=== PATIENT | female | born 1950 | race Caucasian/White ===

== ENCOUNTER 2017-05-21 14:22 | Inpatient (IN) | payer OTHER ==
[~2017-05-21] VITALS: Ht 162.6 cm; Wt 99.8 kg
[~2017-05-21 14:22] MED LIST: ASPIR 8181 MG PO; CELEXA10 MG PO; LOVASTATIN40 MG PO; MEDROL DOSEPAK1 PAC PO; METFORMIN1000 MG PO; METOPROLOL TART25 MG PO; NORVASC10 MG PO; OMEGA 31000 MG PO; OXYCODONE5 MG PO; PERCOCET 325 MG1 TA2 PO; TOPROL XL 25MG25 MG PO; TRAMADOL50 MG PO; TYLENOL #31 TAB PO; VITAMIN D1000 IU PO
--- NOTE | 2017-05-21 14:52 | NUR ---
PT TO ED WITH C/O LEFT ABD PAIN, SLIGHT NAUSEA, NO APPETITE X 2, "I HAVE A COLOSTOMY AND THE STOMA LOOKS PURPLE WITH WHITE SPOTS". PER PT "I GET LEFT ABD CRAMPING 6/10, THEN I GET A LOT OF LOOSE DIARRHEA IN MY COLOSTOMY".
[2017-05-21] MEDS ORDERED: METFORMIN HCL1000 M1 PO (15:57)
[2017-05-21] MEDS ORDERED: LOVASTATIN40 M1 PO (15:59)
[2017-05-21] MEDS ORDERED: METOPROLOL TART25 M1 PO (15:59)
[2017-05-21] MEDS ORDERED: LISINOPRIL5 M1 PO (15:59)
[2017-05-21] MEDS ORDERED: CITALOPRAM HBR10 MG PO (15:59)
[2017-05-21] MEDS ORDERED: AMLODIPINE BESY10 M1 PO (15:59)
[2017-05-21] MEDS ORDERED: CALCIUM600 M3 PO (16:00)
[2017-05-21] MEDS ORDERED: ASPIRIN EC81 M1 PO (16:00)
[2017-05-21] MEDS ORDERED: FISH OIL 1,001000 MG PO (16:00)
[2017-05-21] MEDS ORDERED: VITAMIN D2000 UNI1 PO (16:00)
--- NOTE | 2017-05-21 16:09 | NUR ---
PT AMBULATORY TO ROOM 21, CHANGED INTO GOWN. PT ACTIVELY VOMITED X1 CLEAR FLUID IN ROOM, THEN STATING SHE FELT BETTER. AWAITING EVAL.
--- NOTE | 2017-05-21 16:10 | NUR ---
EVAL BY MEIR KUMAR
--- NOTE | 2017-05-21 16:15 | ED GI/GU/ABDOMINAL COMPLAINT ---
History of Present Illness General Chief Complaint: Abdominal Pain/Flank Pain Stated Complaint: PAIN AND REDNESS TO COLOSTOMY SITE Source: patient, family, old records Exam Limitations: no limitations Vital Signs & Intake/Output Vital Signs & Intake/Output Vital Signs Date Time Temp Pulse Resp B/P B/P Pulse O2 O2 Flow FiO2 Mean Ox Delivery Rate 05/22 0632 98.2 92 20 120/70 96 Room Air 05/21 2202 98.1 95 18 128/62 97 Room Air 05/21 2009 98.4 94 16 112/50 97 Room Air 05/21 1821 89 18 100/52 97 Room Air 05/21 1747 98 05/21 1714 98.2 82 16 92/52 98 Room Air 05/21 1455 97.7 108 20 99/62 97 Room Air Room Air ED Intake and Output 05/22 0000 05/21 1200 Intake Total 2090 Output Total 675 Balance 1415 Intake, IV 1850 Intake, Oral 240 Output, 100 Emesis Output, Stool 575 Patient 220 lb Weight Weight Reported by Patient Measurement Method Allergies Coded Allergies: NO KNOWN ALLERGIES (05/07/13) Triage Note: PT TO ED WITH C/O LEFT ABD PAIN, SLIGHT NAUSEA, NO APPETITE X 2, "I HAVE A COLOSTOMY AND THE STOMA LOOKS PURPLE WITH WHITE SPOTS". Triage Nurses Notes Reviewed? yes ? n Is pt currently ? No Onset: Abrupt Duration: day(s):, constant, continues in ED Timing: recent history Quality/Severity: moderate, sharpness, severe Location: generalized abdomen Radiation: no radiation Activities at Onset: none No Modifying Factors: none HPI: 67-year-old female comes into emergency room for further evaluation of generalized abdominal pain. Symptoms began going on for the past few days. Some associated nausea vomiting. Patient has a history of previous partial colectomy with a colostomy bag in place that has been present for about 10 years. Patient has seen Dr. Doan in the past. Denies any alcohol use. Denies any chest pain shortness of breath. Nothing seems to make the symptoms better or worse. Denies any other associated symptoms. (JOSÉ WORLEY,ABILIO) Reconcile Medications Amlodipine Besylate 10 MG TABLET 1 TAB PO DAILY HEART/BP (Reported) Aspirin (Ecotrin*) 81 MG TABLET.DR 1 TAB PO DAILY HEART/BLOOD (Reported) Calcium (Elemental-Fr Calcarb) (Calcium) 600 MG CALCIUM (1,500 MG) TABLET 1 TAB PO DAILY SUPPLEMENT (Reported) Cholecalciferol (Vitamin D3) (Vitamin D) 2,000 UNIT TABLET 1 TAB PO DAILY SUPPLEMENT (Reported) Citalopram Hydrobromide (Citalopram HBr) 10 MG TABLET 1 TAB PO DAILY MENTAL HEALTH (Reported) Lisinopril 5 MG TABLET 1 TAB PO DAILY BP (Reported) Lovastatin 40 MG TABLET 1 TAB PO DAILY CHOLESTEROL (Reported) with food Metformin HCl 1,000 MG TABLET 1 TAB PO BID DM (Reported) Metoprolol Tartrate 25 MG TABLET 1 TAB PO BID HEART/BP (Reported) [place]-3/Dha/Epa/Fish Oil (Fish Oil 1,000 MG Softgel) (Unknown Strength) CAPSULE (Unknown Dose) PO DAILY SUPPLEMENT (Reported) (DOMINIC BROOKS MD) Past History Travel History Traveled to [place] past 21 day No Medical History Any Pertinent Medical History? see below for history Neurological: NONE EENT: NONE Cardiovascular: hypertension, hyperlipidemia Respiratory: NONE Gastrointestinal: umbilical hernia Hepatic: NONE Renal: KIDNEY STONES Musculoskeletal: NONE Psychiatric: depression Endocrine: diabetes Blood Disorders: NONE Cancer(s): NONE RESEARCH AND DEVELOPMENT SPECIALIST/Reproductive: NONE History of MRSA: No History of VRE: No History of CDIFF: No Surgical History Surgical History: COLOSTOMY Psychosocial History Who do you live with Patient/Self Services at Home None What is your primary language [place] Tobacco Use: Quit >30 days ago ETOH Use: denies use Illicit Drug Use: denies illicit drug use Family History Hx Contributory? No (ABILIO JOYA) Review of Systems Review of Systems Constitutional: Reports: no symptoms. EENTM: Reports: no symptoms. Respiratory: Reports: no symptoms. Cardiovascular: Reports: no symptoms. GI: Reports: see HPI. Genitourinary: Reports: see HPI. Musculoskeletal: Reports: no symptoms. Skin: Reports: no symptoms. Neurological/Psychological: Reports: no symptoms. Hematologic/Endocrine: Reports: no symptoms. Immunologic/Allergic: Reports: no symptoms. All Other Systems: Reviewed and Negative (ABILIO JOYA) Physical Exam Physical Exam General Appearance: well developed/nourished, no apparent distress, alert, awake Head: atraumatic, normal appearance Eyes: Bilateral: normal appearance. Ears, Nose, Throat, Mouth: hearing grossly normal, moist mucous membrane Neck: normal inspection Respiratory: normal breath sounds, no respiratory distress Cardiovascular: regular rate/rhythm Gastrointestinal: soft, tenderness Back: normal inspection Extremities: normal range of motion Neurologic/Psych: awake, alert, oriented x 3 Core Measures ACS in differential dx? No Severe Sepsis Present: No Septic Shock Present: No (JOSÉ WORLEY,ABILIO) Progress Differential Diagnosis: appendicitis, bowel obstruction, cholecystitis, diverticulitis, gastritis, hepatitis, ischemic bowel, kidney stone, pancreatitis , peptic ulcer, PUD/GERD, perforated viscous, SBO, UTI/pyelo Plan of Care: Orders Procedure Date/time Status Clear Liquid Diet 05/22 B Active Change service to 05/22 0630 Active CBC WITHOUT DIFFERENTIAL 05/22 06 Active BASIC ELECTROLYTES PLUS BUN&CR 05/22 06 Active Intake & Output 05/22 UNK Complete LACTIC ACID 05/21 223 Complete HEPATIC FUNCTION PANEL 05/21 2230 Complete CBC WITHOUT DIFFERENTIAL 05/21 2230 Complete BASIC ELECTROLYTES PLUS BUN&CR 05/21 223 Complete C.DIFFICILE 05/21 2152 Active OVA AND PARASITE ANTIGENS 05/21 2129 Active Vital Signs 05/21 2056 Active Teach/Educate 05/21 2056 Active Pain Treatment and Response 05/21 2056 Active Nutritional Intake, Monitor 05/21 2056 Active Isolation 05/21 2056 Active Intake & Output 05/21 2056 Active Patient Care Conference 05/21 2056 Active Activity/Ambulation 05/21 2056 Active CULTURE,URINE 05/21 2023 Active Pathway - chart 05/21 2020 Active Pathway - chart 05/21 2011 Active LACTIC ACID 05/21 191 Complete Patient Data 05/21 1845 Active BLOOD CULTURE 05/21 1825 Active URINALYSIS 05/21 1825 Complete OXYGEN SETUP (GEN) 05/21 1758 Active Saline Lock 05/21 1758 Active Admit to inpatient 05/21 1758 Active Vital Signs 05/21 1758 Active Activity/Ambulation 05/21 1758 Active Code Status 05/21 1758 Active Add-on Test (ER Only) 05/21 1751 Active TRIGLYCERIDES 05/21 1652 Complete LDH (LACT ACID DEHYDROGENASE) 05/21 1652 Complete LIPASE 05/21 1615 Complete LACTIC ACID 05/21 1615 Complete COMPREHENSIVE METABOLIC PANEL 05/21 1615 Complete CBC WITHOUT DIFFERENTIAL 05/21 1615 Complete Intake & Output 05/21 1609 Active House Staff 05/21 UNK Active VTE Mechanical Prophylaxis 05/21 UNK Active Vital Signs 05/21 UNK Complete Hemoccult 05/21 UNK Active FingerStick- Glucose 05/21 UNK Active Current Medications Sig/Debby Start time Last Medication Dose Stop Time Status Admin Aspirin Buffered 81 MG DAILY 05/22 1000 AC (Ecotrin) Insulin Aspart 0 TIDAC 05/22 0800 AC (NovoLOG) Sodium Chloride 1,000 ML Q10H 05/21 2345 AC 05/22 (Normal Saline 0.9%) 0045 Citalopram 10 MG DAILY 05/21 223 AC 05/22 Hydrobromide 0041 (Celexa) Heparin Sodium 5,000 UNIT Q8 05/21 220 AC 05/22 (Porcine) 0551 Ondansetron HCl 4 MG Q6P PRN 05/21 2045 AC (Zofran) Acetaminophen 650 MG Q6 PRN 05/21 2030 AC 05/21 (Tylenol) 202 Morphine Sulfate 2 MG Q4P PRN 05/21 2030 AC 05/21 (Morphine) 2199 Oxycodone HCl 5 MG Q6P PRN 05/21 2030 AC (Roxicodone) Laboratory Tests 05/21/172: Anion Gap 12, Estimated GFR 32 L, BUN/Creatinine Ratio 15.0, Lactic Acid 1.1, Total Bilirubin 0.7, Direct Bilirubin 0.2, AST 24, ALT 39, Alkaline Phosphatase 58, Total Protein 6.4, Albumin 3.8, CBC w Diff NO MAN DIFF REQ, RBC 4.31, MCV 79.2 L, MCH 25.9 L, RDW 16.5 H, MPV 7.8, Gran % 71.4, Lymphocytes % 15.0 L, Monocytes % 10.4 H, Eosinophils % 2.8, Basophils % 0.4, Absolute Granulocytes 4.5, Absolute Lymphocytes 0.9 L, Absolute Monocytes 0.7 H, Absolute Eosinophils 0.2, Absolute Basophils 0, PUBS MCHC 32.7 L 05/21/17 1930: Urine Color YEL, Urine Clarity CLDY H, Urine pH 6.0, Ur Specific [place] 1.015, Urine Protein 30 H, Urine Ketones NEG, Urine Nitrite NEG, Urine Bilirubin NEG, Urine Urobilinogen 0.2, Ur Leukocyte Esterase LARGE H, Ur Microscopic SEDIMENT EXAMINED, Urine RBC 50-75 H, Urine WBC > 75 H, Ur Epithelial Cells MOD H, Urine Bacteria FEW H, Urine Hemoglobin MOD H, Urine Glucose NEG 05/21/17 1925: Lactic Acid 2.6 H 05/21/17 1652: Anion Gap 17 H, Estimated GFR 30 L, BUN/Creatinine Ratio 14.1, Glucose 139 H, Lactic Acid 3.3 H, Calcium 10.3 H, Total Bilirubin 0.7, AST 29, ALT 38, Alkaline Phosphatase 70, Lactate Dehydrogenase 378, Total Protein 7.4, Albumin 4.5, Globulin 2.9, Albumin/Globulin Ratio 1.6, Triglycerides 200 H, Lipase 752 H, CBC w Diff NO MAN DIFF REQ, RBC 4.94, MCV 79.0 L, MCH 25.9 L, RDW 16.2 H, MPV 7.8, Gran % 79.8 H, Lymphocytes % 9.3 L, Monocytes % 8.2, Eosinophils % 2.4, Basophils % 0.3, Absolute Granulocytes 6.3, Absolute Lymphocytes 0.7 L, Absolute Monocytes 0.7 H, Absolute Eosinophils 0.2, Absolute Basophils 0, PUBS MCHC 32.7 L Microbiology 05/21 2145 STOOL: Clostridium difficile Toxin A & B - RECD 05/21 2145 STOOL: Cryptosporidium Antigen - RECD 05/21 2145 STOOL: Giardia Antigen (FADIA) - RECD 05/21 2023 URINE ROUT: Urine Culture - COLB 05/21 1925 BLOOD: Blood Culture - RECD 05/21 184 BLOOD: Blood Culture - RECD Diagnostic Imaging: Viewed by Me: CT Scan. Discussed w/RAD: CT Scan. Radiology Impression: PATIENT: LETY WALL PRESENT AGE: 67 PATIENT ACCOUNT NO: [id number] : 48 LOCATION: [facility] ORDERING PHYSICIAN: ABILIO WORLEY SERVICE DATE: 05/21/17 EXAM TYPE : CAT - CT ABD & PELVIS W/O IV CONTRAS EXAMINATION: CT ABDOMEN AND PELVIS WITHOUT CONTRAST CLINICAL INFORMATION: Abdominal pain with vomiting, history of a colostomy. COMPARISON: 01/19/2016. TECHNIQUE: Multidetector volumetric imaging was performed from the superior aspect of the liver through the pubic symphysis. Sagittal and coronal reformatted images were obtained on the technologist's workstation. DLP: 1189 mGy-cm FINDINGS: LUNG BASES: 4 mm noncalcified lingular nodule image 4 series 3. This was not included on the most recent exam, however, appears stable given technical factors compared back to the 05/07/2013 CT. LIVER AND SPLEEN: Unremarkable. PANCREAS GALLBLADDER AND BILIARY TREE: Pancreas appears unremarkable. A small amount of hyperdense sludge or tiny calculi are suggested within the gallbladder dependently without evidence of acute cholecystitis on today's exam. Biliary tree is nondilated. KIDNEYS, URETERS, AND ADRENALS: There is a large staghorn calculus occupying the majority of the right renal pelvis extending into the calyces with Hounsfield unit measurements in the 4-500s suggesting a noncalcified most likely uric acid stone unless the patient is on antiretroviral therapy. This calculus measures approximately 3 cm in maximal size in the calyx largely unchanged. Other subcentimeter right renal calculi are again noted largely unchanged. Just distal to the level of the calculus is moderate soft tissue stranding somewhat masslike in appearance best seen image 51 series 2 measuring 3.4 x 2.1 cm largely unchanged indeterminate in etiology. This appears somewhat improved compared with the previous exam and appear more inflammatory the prior exam. Findings may represent chronic scarring in this region. There are no left-sided calculi, previously identified left UVJ calculus has passed. No residual hydroureteronephrosis. URINARY BLADDER: Collapsed and unremarkable. GI TRACT: Large ventral hernia containing numerous loops of large and small bowel with an associated right lower quadrant colostomy and smaller parastomal hernia without evidence of obstruction or vascular compromise. Distal colon can remain in place with fairly extensive diverticulosis and a high density mass in the rectum likely some residual contrast, I'm uncertain why there is residual contrast in this region unless the patient has a high-grade distal rectal or anal stricture or mass. Clinical correlation recommended. PERITONEAL CAVITY: There is no intraperitoneal free fluid, masses or adenopathy. RETROPERITONEUM: Moderate atherosclerotic aortic calcification without aneurysmal dilatation. PELVIC ORGANS: Uterus and adnexal regions appear unremarkable and unchanged. OSSEOUS STRUCTURES: No aggressive osseous lesions. There are degenerative changes. ANTERIOR ABDOMINAL WALL AND SOFT TISSUES: Large ventral hernia towards the right with a second area of hernia parastomal in etiology. IMPRESSION: 1. No acute process. 2. Large anterior abdominal wall hernia without evidence of an associated obstruction or vascular compromise. 3. Colonic diverticulosis without evidence of acute diverticulitis. 4. Likely residual contrast and stool in the rectum. Largely unchanged. 5. Staghorn calculus right kidney without hydronephrosis. Questionable inflammatory versus neoplastic thickening just distal to the calculus at the ureteropelvic junction/proximal ureter on the right somewhat less prominent on today's exam. Urologic consultation recommended. DICTATED BY: ISSA PRECIADO MD DATE/TIME DICTATED:05/21/171638 PRODUCT TEST ENGINEER:[place] DATE/TIME TRANSCRIBED:05/21/171638 CONFIDENTIAL, DO NOT COPY WITHOUT APPROPRIATE AUTHORIZATION. <Electronically signed in Other Vendor System> SIGNED BY: ISSA PRECIADO MD 05/21/17 1492 Initial ED EKG: none (ABILIO JOYA) Departure Departure Disposition: STILL A PATIENT Condition: Stable Clinical Impression Primary Impression: Acute pancreatitis Secondary Impressions: Acute kidney injury, Lactic acidosis Referrals: SHAY HAMPTON MD (PCP/Family) Departure Forms: Customer Survey General Discharge Information Admission Note Spoke With: ELIAS GARCIA MD Documentation of Exam: Documentation of any treatments & extenuating circumstances including Concerns Regarding Discharge (functional status, medication knowledge or non-compliance, living conditions, etc.) that warrant an admission rather than observation: Patient will require IV fluids. IV pain control. Repeat labs. Patient is exhibiting signs of dehydration as well as pancreatitis. GI consultation. (ABILIO JOYA) PA/MOLD SETTER Co-Sign Statement Statement: ED Attending supervision documentation- x I saw and evaluated the patient. I have also reviewed all the pertinent lab results and diagnostic results. I agree with the findings and the plan of care as documented in the PA's/MOLD SETTER's documentation. [] I have reviewed the ED Record and agree with the PA's/MOLD SETTER's documentation. [] Additions or exceptions (if any) to the PAs/MOLD SETTER's note and plan are summarized below: [] (TODD NAJREA,DOMINIC)
[2017-05-21 17:07] LABS: ABSOLUTE BASOPHIL COUNT 0 /CUMM (0.0-0.2); ABSOLUTE EOSINOPHIL COUNT 0.2 /CUMM (0.0-0.7); ABSOLUTE GRANULOCYTE CT 6.3 /CUMM (1.4-6.5); ABSOLUTE LYMPH COUNT 0.7 /CUMM (1.2-3.4); ABSOLUTE MONOCYTE COUNT 0.7 /CUMM (0.10-0.60); BASOPHIL % 0.3 % (0.0-2.0); EOSINOPHIL % 2.4 % (0-5); GRANULOCYTE % 79.8 % (42.2-75.2); MEAN CORPUSCULAR HGB 25.9 PG (27.0-31.0); MEAN CORPUSCULAR HGB CONC 32.7 G/DL (33.0-37.0); MEAN PLATELET VOLUME 7.8 FL (7.4-10.4); PLATELET COUNT 295 /CUMM (130-400); RBC DISTRIBUTION WIDTH 16.2 % (11.5-14.5); RED BLOOD CELL CT 4.94 /CUMM (4.20-5.40); WHITE BLOOD CELL COUNT 7.9 /CUMM (4.8-10.8)
--- NOTE | 2017-05-21 17:43 | CT SCAN REPORT ---
EXAMINATION: CT ABDOMEN AND PELVIS WITHOUT CONTRAST CLINICAL INFORMATION: Abdominal pain with vomiting, history of a colostomy. COMPARISON: 01/19/2016. TECHNIQUE: Multidetector volumetric imaging was performed from the superior aspect of the liver through the pubic symphysis. Sagittal and coronal reformatted images were obtained on the technologist's workstation. DLP: 1189 mGy-cm FINDINGS: LUNG BASES: 4 mm noncalcified lingular nodule image 4 series 3. This was not included on the most recent exam, however, appears stable given technical factors compared back to the 05/07/2013 CT. LIVER AND SPLEEN: Unremarkable. PANCREAS GALLBLADDER AND BILIARY TREE: Pancreas appears unremarkable. A small amount of hyperdense sludge or tiny calculi are suggested within the gallbladder dependently without evidence of acute cholecystitis on today's exam. Biliary tree is nondilated. KIDNEYS, URETERS, AND ADRENALS: There is a large staghorn calculus occupying the majority of the right renal pelvis extending into the calyces with Hounsfield unit measurements in the 4-500s suggesting a noncalcified most likely uric acid stone unless the patient is on antiretroviral therapy. This calculus measures approximately 3 cm in maximal size in the calyx largely unchanged. Other subcentimeter right renal calculi are again noted largely unchanged. Just distal to the level of the calculus is moderate soft tissue stranding somewhat masslike in appearance best seen image 51 series 2 measuring 3.4 x 2.1 cm largely unchanged indeterminate in etiology. This appears somewhat improved compared with the previous exam and appear more inflammatory the prior exam. Findings may represent chronic scarring in this region. There are no left-sided calculi, previously identified left UVJ calculus has passed. No residual hydroureteronephrosis. URINARY BLADDER: Collapsed and unremarkable. GI TRACT: Large ventral hernia containing numerous loops of large and small bowel with an associated right lower quadrant colostomy and smaller parastomal hernia without evidence of obstruction or vascular compromise. Distal colon can remain in place with fairly extensive diverticulosis and a high density mass in the rectum likely some residual contrast, I'm uncertain why there is residual contrast in this region unless the patient has a high-grade distal rectal or anal stricture or mass. Clinical correlation recommended. PERITONEAL CAVITY: There is no intraperitoneal free fluid, masses or adenopathy. RETROPERITONEUM: Moderate atherosclerotic aortic calcification without aneurysmal dilatation. PELVIC ORGANS: Uterus and adnexal regions appear unremarkable and unchanged. OSSEOUS STRUCTURES: No aggressive osseous lesions. There are degenerative changes. ANTERIOR ABDOMINAL WALL AND SOFT TISSUES: Large ventral hernia towards the right with a second area of hernia parastomal in etiology. IMPRESSION: 1. No acute process. 2. Large anterior abdominal wall hernia without evidence of an associated obstruction or vascular compromise. 3. Colonic diverticulosis without evidence of acute diverticulitis. 4. Likely residual contrast and stool in the rectum. Largely unchanged. 5. Staghorn calculus right kidney without hydronephrosis. Questionable inflammatory versus neoplastic thickening just distal to the calculus at the ureteropelvic junction/proximal ureter on the right somewhat less prominent on today's exam. Urologic consultation recommended.
--- NOTE | 2017-05-21 17:48 | NUR ---
PT AMBULATORY TO AND FROM BATHROOM WITH STEADY GAIT, NO DIZZINESS.
--- NOTE | 2017-05-21 17:48 | NUR ---
CRITICAL TEST RESULTS [id number] LETY WALL 67 F TESTS AND RESULTS: LACTIC 3.3 Results received and read back by: CAM PUTNAM Results received date and time: 05/21/17 1749 The following provider was notified of the results, and read the results back: MEIR KUMAR Notified date and time: 05/21/17 at 1744
--- NOTE | 2017-05-21 17:57 | NUR ---
MEIR KUMAR AT BEDSIDE TO DISCUSS TEST RESULTS AND PLAN
--- NOTE | 2017-05-21 19:53 | NUR ---
PT ASSIGNED TO ROOM 210 BED 2
--- NOTE | 2017-05-21 20:09 | History & Physical ---
SHEYLA NAJERA,[facility] 05/21/172007: General Information and HPI MD Statement: I have seen and personally examined LETY WALL and documented this H&P. The patient is a 67 year old F who presented with a patient stated chief complaint of [abdominal pain]. Source of Information: patient, family Exam Limitations: no limitations History of Present Illness: The patient is 67 yo F with a pmx of hypertension, hyperlipidemia, incarcerated umbilical hernia and colostomy, kidney stones, depression, and diabetes presenting with 3-4 days of L abd pain. She states the pain started suddenly. She described it as a shooting pain that comes and goes. The pain is non radiating. She states the pain improved with ibuprofen 250 but would reoccur. She states she has taken 4 ibuprofen for the past 4 days(16 total). She has been drinking alot of water. She also complains of bloating. She states she has had 3 episodes of vomiting. This morning she tried eating an egg but was unable to tolerate it and vomited. She has also noticed diarreah which started in the same time period. She states her diarreah is all liquid and denies any blood. She has a bowel movement every couple hours, about 5 times/day. She has a coloestomy for her hernia back in 2006. She denies eating out recently, diet changes, antibiotics, or sick contacts. She has noticed chills, sweats but no fevers. She denies chest pain, SOB, palpitations. She denies any burning with urination recently. She reports increasae urinary frequency. For the past few days she has felt very anxious and has had reduced appetite. She has a history of anxiety. She has noticed a regular heart beat during these anxiety periods. She states Dr. Jeter is the attending taking care of her b/l renal stents. 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 The patient has a history of aortic stenosis diagnosed in [address] Baugh but did not follow up. She also states Dr. Doan plans on reversing the colostomy. Allergies/Medications Allergies: Coded Allergies: NO KNOWN ALLERGIES (05/07/13) Home Med list Amlodipine Besylate 10 MG TABLET 1 TAB PO DAILY HEART/BP (Reported) Aspirin (Ecotrin*) 81 MG TABLET. 1 TAB PO DAILY HEART/BLOOD (Reported) Calcium (Elemental-Fr Calcarb) (Calcium) 600 MG CALCIUM (1,500 MG) TABLET 1 TAB PO DAILY SUPPLEMENT (Reported) Cholecalciferol (Vitamin D3) (Vitamin D) 2,000 UNIT TABLET 1 TAB PO DAILY SUPPLEMENT (Reported) Citalopram Hydrobromide (Citalopram HBr) 10 MG TABLET 1 TAB PO DAILY MENTAL HEALTH (Reported) Lisinopril 5 MG TABLET 1 TAB PO DAILY BP (Reported) Lovastatin 40 MG TABLET 1 TAB PO DAILY CHOLESTEROL (Reported) with food Metformin HCl 1,000 MG TABLET 1 TAB PO BID DM (Reported) Metoprolol Tartrate 25 MG TABLET 1 TAB PO BID HEART/BP (Reported) Henderson-3/Dha/Epa/Fish Oil (Fish Oil 1,000 MG Softgel) (Unknown Strength) CAPSULE (Unknown Dose) PO DAILY SUPPLEMENT (Reported) Past History Travel History Traveled to [place] past 21 day No Medical History Neurological: NONE EENT: NONE Cardiovascular: hypertension, hyperlipidemia, aortic stenosis Respiratory: NONE Gastrointestinal: umbilical hernia Hepatic: NONE Renal: KIDNEY STONES Musculoskeletal: NONE Psychiatric: depression Endocrine: diabetes Blood Disorders: NONE Cancer(s): NONE HOSPICE FELLOW/Reproductive: NONE History of MRSA: No History of VRE: No History of CDIFF: No Surgical History Surgical History: COLOSTOMY Past Family/Social History Psychosocial History Services at Home: None Smoking Status: Former Smoker (quit 20 years ago) ETOH Use: denies use Illicit Drug Use: denies illicit drug use Review of Systems Review of Systems Constitutional: Reports: chills, diaphoresis. Denies: fever. Cardiovascular: Denies: chest pain, palpitations. Respiratory: Denies: short of breath. GI: Reports: abdominal pain. Genitourinary: Reports: frequency. Denies: dysuria. Neurological/Psychological: Reports: anxiety. Exam & Diagnostic Data Last 24 Hrs of Vital Signs/I&O Vital Signs Date Time Temp Pulse Resp B/P B/P Pulse O2 O2 Flow FiO2 Mean Ox Delivery Rate 05/212 98.1 95 18 128/62 97 Room Air 05/21 2009 98.4 94 16 112/50 97 Room Air 05/21 1821 89 18 100/52 97 Room Air 05/21 1747 98 05/21 1714 98.2 82 16 92/52 98 Room Air 05/21 1455 97.7 108 20 99/62 97 Room Air Room Air Intake & Output 05/22 0800 05/22 0000 05/21 1600 Intake Total 2090 Output Total 675 Balance 1415 Intake, IV 1850 Intake, Oral 240 Output, 100 Emesis Output, Stool 575 Patient 220 lb 200 lb Weight Weight Reported by Patient Reported by Patient Measurement Method Physical Exam General Appearance Alert, Oriented X3, Cooperative, No Acute Distress HEENT PERRLA, EOMI, dry mucous membranes and tongue, CN 2-12 intact Cardiovascular Normal S1, Normal S2, holosystolic ejection murmur Lungs Clear to Auscultation, Normal Air Movement Abdomen Soft, No Tenderness, right colostomy noted. Dark green diarrhea noted in colostomy bag. Patient states this is the first time she has had green diarrhea. Extremities No Edema, Normal Pulses Diagnostic Data CXR Results CT ABD PELVIS IMPRESSION: 1. No acute process. 2. Large anterior abdominal wall hernia without evidence of an associated obstruction or vascular compromise. 3. Colonic diverticulosis without evidence of acute diverticulitis. 4. Likely residual contrast and stool in the rectum. Largely unchanged. 5. Staghorn calculus right kidney without hydronephrosis. Questionable inflammatory versus neoplastic thickening just distal to the calculus at the ureteropelvic junction/proximal ureter on the right somewhat less prominent on today's exam. Urologic consultation recommended. Assessment/Plan Assessment: The patient is 67 yo F with a pmx of hypertension, hyperlipidemia, incarcerated umbilical hernia and colostomy, kidney stones, depression, and diabetes presenting with 3-4 days of L abd pain found to be afebrile, questionable inflammatory versus neoplastic thickening distal to the staghorn calculi of the right kidney, multiple metabolic abnormalities, and a urinalysis consisting of positive leukocyte esterase and negative nitrites which are consistent with her old urinalyses. The patient will be admitted to the general medicine service to treat her gastroenteritis/abdominal pain, sepsis secondary to possible UTI, GHAZAL, and metabolic derangements. As Ranked By This Provider Problem List: 1. Abdominal pain Assessment/Plan The patient is 67 yo F with a pmx of hypertension, hyperlipidemia, incarcerated umbilical hernia and colostomy, kidney stones, depression, and diabetes presenting with 3-4 days of acute onset, sharp, intermittent and remaining abd pain. The patient has been taking 4 ibuprofens each day at 250 each. She also complains of bloating and episodes of vomiting. She is afebrile her temperature was 98.2. She states that the green diarrhea in her colostomy bag was the first time she has noticed it. We will treat her for presumed gastroenteritis. We will also get stool studies including Hemoccult, stool cultures, ova and parasite, and C. difficile. We will give her Zofran when necessary for nausea. We will begin her on a pain scale for pain. We will also obtain blood cultures to rule out any other source of infection. The patient had an original lactic acid of 3.3 which is down trended to 2.6. We will continue to trend lactic acid. The patient was found to also have a systolic blood pressure between 90- 100. We will hold her home medications for her blood pressure. Please repeat an abdominal exam in the morning and consider an ultrasound. Her AST and ALTs were 24 and 30 respectively. Her alkaline phosphatase was 70. Of note her triglycerides were 200 and lipase was 752. We will begin her on a clear liquid diet. -f/u cbc, bmp -f/u stool studies: hemoccult, stool cultures, ova and parasite, and C. difficile. -Zofran 4 mg IV every 6 hours when necessary nausea and vomiting -Pain scale: Acetaminophen 650 mg by mouth every 6 hours for pain scale 1-3, oxycodone 5 mg by mouth every 6 hours for pain scale 4-6,morphine 2mg iv mg by mouth every 6 hours for pain scale 7-10 -Follow blood cultures -Continue trending lactic -Repeat abdominal exam in the morning. Consider ultrasound 2. UTI (urinary tract infection) Assessment/Plan The patient's urinalysis was positive for leukoesterase, white blood cells 50-75 , white blood cell screen 75, and negative for nitrates. The patient's current urinalysis is very similar to her past urinalysis. She denies any dysuria but reports increased frequency. A UTI may be of cause of her sepsis. We will continue to trend her lactic acid as stated above and will follow up on the urine culture. -Follow-up urine culture 3. GHAZAL (acute kidney injury) Assessment/Plan The patient was found to have a anion gap metabolic acidosis in addition to a BUN -24 and creatinine 1.7. This creatinine is above her baseline. Given her poor PO intake and diarrhea, these are most likely the cause of her GHAZAL. We will continue her fluids and monitor her basic metabolic panel. We are trending lactic acid levels as stated above. -Continue fluids -Monitor BMP -Trend lactic acid 4. Electrolyte abnormality Assessment/Plan The patient was found to have a sodium of 133, potassium 5.3, chloride 94, CO2 of 21. Given the patient's history of pain and vomiting, the lack of PO nutrition and diarrhea, these three factors are probably the cause of these metabolic derangements. We will continually follow her BMP and repeat electrolytes as needed. She is currently NPO and begin her on fluids. -Follow-up BMP, replete lytes as needed -Continue NS @ 100ml/hr 5. Depression Assessment/Plan The patient reports a history of depression. We will continue her on her current dose of citalopram. -Continue citalopram 10 mg by mouth daily 6. DVT prophylaxis Assessment/Plan Heparin 7. Full code status Assessment/Plan Full code Core Measures/Miscellaneous Acute Coronary Syndrome ACS Diagnosis: No Cerebrovascular Accident CVA/TIA Diagnosis: No Congestive Heart Failure CHF Diagnosis: No VTE (View Protocol) VTE Risk Factors: Acute medical illness, Age > 40 No [facility] VTE prophylaxis d/t: No contraindications No VTE Pharm Prophylaxis d/t: No contraindications VTE Diagnosis: No VTE Type: NONE VTE Confirmed by (Test): NONE Sepsis (View Protocol) Severe Sepsis Present: No Septic Shock Septic Shock Present: No Miscellaneous Documentation Attending Case Discussed With: SUSY MORATAYA MD Primary Care Physician: SHAY HAMPTON MD Patient sees these Specialists GI, cards, nephrology but does not follow up Level of Patient Care: General Medicine RENETTA GOYAL MD,RADHA 05/21/172027: Resident Review Statement Resident Statement: examined this patient, discussed with internal controls manager, discussed with family, reviewed EMR data (avail) Other Findings: 67-year-old woman with past medical history significant for hypertension, hyperlipidemia, type 2 diabetes on metformin, history of nephrolithiasis status post bilateral ureteral stents, history of cholelithiasis, history of colostomy for an incarcerated hernia, past admission in [facility] in 2012 for bilateral obstructing calculi with bilateral hydronephrosis, metabolic acidosis, and hyponatremia came to emergency department for generalized abdominal pain. Vitals in emergency department, patient afebrile, no tachypnea, tachycardia heart rate ranging from 108-82, blood pressure ranging from 92/52-112/50, oxygen saturation of 97-98% on room air. On examination, patient was alert and oriented comfortably lying in the bed not in any acute distress. Pertinent examination of abdomen included right-sided colostomy bag with greenish fluid watering consistency, mild tenderness on deep palpation of lower abdomen, dry mucous membranes, holosystolic murmur, benign lung and neurological examination Significant labs in emergency department, no leukocytosis white count of 7.9, granulocytes 79.8, platelet count 95, hemoglobin of 12.8 and hematocrit of 39, significant electrolyte abnormalities including hyponatremia sodium 133, hyperkalemia, potassium 5.3, chloride 94, carbon dioxide 21, BUN 24 and creatinine 1.7 (baseline creatinine of 0.9-1), significant lactic acidosis, lactic acid on admission 3.3, triglycerides of 200 and lipase of 752, dirty urine with greater than 75 WBCs, epithelial cells, positive leukocyte esterase. Imaging in emergency , CAT scan of abdomen and pelvis without IV contrast, No acute process, Large anterior abdominal wall hernia without evidence of an associated obstruction or vascular compromise. Colonic diverticulosis without evidence of acute diverticulitis. Likely residual contrast and stool in the rectum. Largely unchanged. Staghorn calculus right kidney without hydronephrosis. Questionable inflammatory versus neoplastic thickening just distal to the calculus at the ureteropelvic junction/proximal ureter on the right somewhat less prominent on today's exam. Patient was admitted on general medicine floor for the management of following problems #1 Acute Dirrhea #2 acute kidney injury/? UTI #3 acute abdominal pain #4 significant electrolyte abnormalities #5 lactic acidosis Acute diarrhea/abdominal pain/electrolyte abnormalities According to the patient she has been having 10-12 bowel movements which are liquid in consistency for the last 3-4 days along with generalized lower abdominal pain. Patient denied eating out, ordering food or any sick contacts along with any recent antibiotic use. She has not been admitted recently in any health care facility. Patient also noticed some dark liquidy stools yesterday but denies seeing any fresh red blood in the colostomy bag. We'll send the stool studies ON parasites along with C. difficile. We will hold off any antibiotics for now. Supportive care with IV fluids and Zofran for nausea. We will also replete electrolytes as necessary. Patient will be on clear liquid diet and will adjust the diet as tolerated. Monitor input and output. Restart blood pressure medications as blood pressure is improved. Lactic acidosis Lactic acidosis type A likely secondary to poor tissue perfusion in the setting of recent diarrhea. We will Rehydrate the patient and follow-up lactic acid. Acute kidney injury Likely secondary to mixed picture of using and this aids in the setting of hypovolemia leading to prerenal and intrinsic type of kidney injury. Patient has already received IV fluids will follow-up with a renal function. Avoid NSAIDS and nephrotoxic medications. History of UTI/bilateral ureteral stents Patient does have past medical history significant for urinary tract infections in the past. We will hold off on any antibiotics for now as she does not have any symptoms of dysuria or burning with passing urine. With obtain the urine culture/blood culture and follow-up Patient is full code Patient is on heparin for DVT prophylaxis Patient is on pain management Patient is clear liquid diet ELIAS GARCIA 05/22/17 0331: Attending MD Review Statement Attending Statement Attending MD Statement: examined this patient, discuss w/resident/PA/CLINIC SCHEDULER, agreed w/resident/PA/CLINIC SCHEDULER, reviewed EMR data (avail), reviewed images, amended to note Attending Assessment/Plan: CC: Left flank pain PMH: HTN, HLD, DM, nephrolithiasis with history of bilateral obstructing ureteral calculus S/P stent, obesity, moderate to severe areas, pulmonary hypertension, 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 Upon further questioning patient endorses increased output through ileostomy tube, green colored output needing frequent changes, no evidence of blood or black colored stool. Patient has been taking NSAIDs for the pain without much relief. No changes in food or any recent use of antibiotics. Denies any fever or chills at home. She denies any urinary symptoms including frequency, burning or pain, denies any suprapubic pain. Vitals: Afebrile, pulse in 80s, RR 16, blood pressure at arrival 99/62 improved with IV hydration, saturating well on room air. On exam: A O 3, cooperative, no acute distress, neck supple, JVD normal, no lymphadenopathy, mucosa dry, no focal neurological deficit, no dependent edema, no obvious skin rashes or inflammation CVS: S1-S2, RRR, systolic murmur in aortic area. RS: Clear to auscultate bilaterally. Abdomen: Soft, tender left lower quadrant, increased watery green eye ileostomy output, eye ileostomy site grossly does not show any inflammation around but patient had tape glued around the colostomy site thus difficult to examine, obese,, bowel sounds present. Peripheral pulses perfusion normal Labs: CBC unremarkable, sodium 133, potassium 4.3, chloride 94, bicarbonate 21, BUN 24, creatinine 1.7, glucose 139, calcium 10.3, anion gap 17, lactate 3.3, LFT unremarkable, lipase 752 UA positive for proteins, large leukocyte esterase, WBC more than 75, moderate epithelial cells, few bacteria CT abdomen pelvis without IV contrast: 1. No acute process. 2. Large anterior abdominal wall hernia without evidence of an associated obstruction or vascular compromise. 3. Colonic diverticulosis without evidence of acute diverticulitis. 4. Likely residual contrast and stool in the rectum. Largely unchanged. 5. Staghorn calculus right kidney without hydronephrosis. Questionable inflammatory versus neoplastic thickening just distal to the calculus at the ureteropelvic junction/proximal ureter on the right somewhat less prominent on today's exam. Urologic consultation recommended. A and P 67 year old female with extensive past medical history presented in ER with left flank pain, increased ileostomy output, nausea and vomiting. She has mild tenderness in left lower quadrant, bowel sounds present, no guarding or rigidity. No CVA tenderness. His initial lab shows anion gap metabolic acidosis with elevated creatinine and lactic acid. Lipase was 752 which is unlikely diagnostic of pancreatitis. Patient appears to have volume contraction secondary to diarrhea, possible gastroenteritis and rule out other infections. Patient does have some gallbladder sludge on CT scan but does not have any Tomas's sign positive on examination. There is evidence of extensive diverticulosis and remaining part of the colon but no evidence of diverticulitis. Patient does have the right-sided staghorn calculus and UA positive for leukocyte esterase but patient does not have any symptoms of UTI including dysuria, frequency, burning, CVA tenderness. She is supposed to follow-up urology outpatient which she has stopped. There is residual contrast in the rectum, unclear etiology and significance. It should be noted that patient had tape glued around the colostomy, it may cause some local skin irritation, I was unable to peel off the tape and patient was reluctant. + Gastroenteritis + Acute kidney injury + Anion gap metabolic acidosis - Admit to general medicine floor - Continue gentle hydration - Trend lactate - Urine culture - Stool for C. difficile and guaiac - Adequate pain control - I's and O's monitoring - Hold her home medications for blood pressure, oral hypoglycemic - Continue sliding scale insulin - DVT prophylaxis with heparin
--- NOTE | 2017-05-21 20:28 | NUR ---
CRITICAL TEST RESULTS [id number] LETY WALL 67 F TESTS AND RESULTS: LACTIC 2.6 Results received and read back by: CAM PUTNAM Results received date and time: 05/21/172028 The following provider was notified of the results, and read the results back: TEXT PAGE TO MOD Notified date and time: 05/21/17 at 1830
--- NOTE | 2017-05-21 20:28 | NUR ---
TYLENOL GIVEN FOR H/A, REPORT CALLED TO [facility] ON 2NB, TRANSPORT BOOKED. PT AWARE OF PENDING TRANSPORT.
[2017-05-21 22:02] VITALS: BP 128/62
--- NOTE | 2017-05-21 22:31 | NUR ---
PATIENT ARRIVED TO FLOOR AT 2047 FROM ER, DX PANCREATITIS VS 98.1 95 18 128/62 97% ROOM AIR; A&OX3; INDEPENDENT; SKIN INTACT; COLOSTOMY TO R ABD, GREEN LIQUID OUTPUT, GUAIC -, SAMPLES SENT PER ORDERS; C/O SOME PAIN TO LOWER ABD; NPO; #20 IV TO RAC WITH LR @ 250 ML/HR. ORIENTED TO CALL [facility] AND ROOM, SAFETY MAINTAINED, NEEDS WITHIN REACH.
[2017-05-21 23:09] LABS: ABSOLUTE BASOPHIL COUNT 0 /CUMM (0.0-0.2); ABSOLUTE EOSINOPHIL COUNT 0.2 /CUMM (0.0-0.7); ABSOLUTE GRANULOCYTE CT 4.5 /CUMM (1.4-6.5); ABSOLUTE LYMPH COUNT 0.9 /CUMM (1.2-3.4); ABSOLUTE MONOCYTE COUNT 0.7 /CUMM (0.10-0.60); BASOPHIL % 0.4 % (0.0-2.0); EOSINOPHIL % 2.8 % (0-5); GRANULOCYTE % 71.4 % (42.2-75.2); HEMATOCRIT 34.2 % (37-47); MEAN CORPUSCULAR HGB 25.9 PG (27.0-31.0); MEAN CORPUSCULAR HGB CONC 32.7 G/DL (33.0-37.0); MEAN CORPUSCULAR VOLUME 79.2 FL (81.0-99.0); MEAN PLATELET VOLUME 7.8 FL (7.4-10.4); PLATELET COUNT 262 /CUMM (130-400); RBC DISTRIBUTION WIDTH 16.5 % (11.5-14.5); RED BLOOD CELL CT 4.31 /CUMM (4.20-5.40); WHITE BLOOD CELL COUNT 6.3 /CUMM (4.8-10.8)
--- NOTE | 2017-05-21 23:28 | NUR ---
PATIENT IS NPO, CURRENT IVF FINISHED (LR ORDERED X 1 BAG), PT IS DIABETIC, FINGERSTICKS S/B Q6 WELL SLIDING SCALE INSULIN COVERAGE DR CARRION INFORMED OF ABOVE, AWAITING NEW ORDERS INFO GIVEN TO ONCOMING NURSE, SHELLI VALDEZ
--- NOTE | 2017-05-22 03:33 | Admission Certification ---
Admission Certification Certification Statement - As attending physician, I certify that at the time of - admission, based on clinical presentation, severity of - symptoms, need for further diagnostic testing and - therapeutic interventions, and risk of adverse outcomes - without in-hospital treatment, in my clinical assessment, - this patient requires an acute hospital stay for a minimum - of two nights or longer. I have also considered psychsocial - factors such as support system, advanced age, financial - issues, cognitive issues, and failed out-patient treatments, - past re-admission history, safety of patient, and lack of - compliance as applicable. Specific rationale supporting this admission is: Dehydration, acute kidney injury, gastroenteritis
[2017-05-22 06:32] VITALS: BP 120/70
--- NOTE | 2017-05-22 07:51 | PN- Housestaff ---
See Addendum Subjective Follow-up For: Gastroenteritis, GHAZAL Subjective: She presented last night. She did not sleep well. She is having pain 5/10 in the LUQ of abdomen. Otherwise, she says she is hungry and is looking forward to eating. She did vomit multiple times yesterday. She is also complaining of a headache. No dysuria, chest pain, shortness of breath. Review of Systems Constitutional: Reports: see HPI. EENTM: Reports: no symptoms. Cardiovascular: Reports: no symptoms. Respiratory: Reports: no symptoms. Gastrointestinal: Reports: see HPI. Genitourinary: Reports: no symptoms. Musculoskeletal: Reports: no symptoms. Skin: Reports: no symptoms. Neurological/Psychological: Reports: no symptoms. Hematologic/Endocrine: Reports: no symptoms. Immunologic/Allergic: Reports: no symptoms. Objective Last 24 Hrs of Vital Signs/I&O Vital Signs Date Time Temp Pulse Resp B/P B/P Pulse O2 O2 Flow FiO2 Mean Ox Delivery Rate 05/22 0632 98.2 92 20 120/70 96 Room Air 05/21 2202 98.1 95 18 128/62 97 Room Air 05/21 2009 98.4 94 16 112/50 97 Room Air 05/21 1821 89 18 100/52 97 Room Air 05/21 1747 98 05/21 1714 98.2 82 16 92/52 98 Room Air 05/21 1455 97.7 108 20 99/62 97 Room Air Room Air Intake & Output 05/22 0800 05/22 0000 05/21 1600 Intake Total 2090 Output Total 300 675 Balance -300 1415 Intake, IV 1850 Intake, Oral 240 Output, 100 Emesis Output, Stool 575 Output, Urine 300 Patient 220 lb 200 lb Weight Weight Reported by Patient Reported by Patient Measurement Method Physical Exam General Appearance: Alert, Oriented X3, Cooperative, No Acute Distress HEENT: Atraumatic Cardiovascular: Regular Rate, Normal S1, Normal S2 Lungs: Clear to Auscultation Abdomen: ostomy bag with light green fluid. No erythema surrounding the back. She has pain in the left upper quadrant abdomen, however it is not exacerbated on palpation. Neurological: Normal Speech Current Medications: Current Medications Sig/Debby Start time Last Medication Dose Route Stop Time Status Admin Acetaminophen 0 .STK-MED ONE 05/21 2031 DC PO Acetaminophen 650 MG Q6 PRN 05/21 2030 AC 05/21 PO 2026 Acetaminophen 0 .STK-MED ONE 05/21 2030 DC PO Aspirin Buffered 81 MG DAILY 05/22 1000 AC PO Citalopram 10 MG DAILY 05/21 2230 AC 05/22 Hydrobromide PO 004 Heparin Sodium 5,000 UNIT Q8 05/21 2200 AC 05/22 (Porcine) SC 0551 Insulin Aspart 0 TIDAC 05/22 0800 AC SC Lactated Ringer's 1,000 ML ONCE ONE 05/21 1800 DC 05/21 IV 05/21 2159 1821 Morphine Sulfate 2 MG Q4P PRN 05/21 2030 AC 05/21 IV 2200 Ondansetron HCl 4 MG Q6P PRN 05/21 2045 AC IV Ondansetron HCl 0 .STK-MED ONE 05/21 1623 DC .ROUTE Ondansetron HCl 4 MG ONCE ONE 05/21 1615 DC 05/21 IV 05/21 1616 1645 Oxycodone HCl 5 MG Q6P PRN 05/21 2030 AC PO Sodium Chloride 1,000 ML Q10H 05/21 2345 AC 05/22 IV 0045 Sodium Chloride 1,000 ML BOLUS ONE 05/21 1615 DC 05/21 IV 05/21 1714 1645 Last 24 Hrs of Lab/Kartik Results Last 24 Hrs of Labs/Mics: Laboratory Tests 05/22/17 0647: Sodium Pending, Potassium Pending, Chloride Pending, Carbon Dioxide Pending, Anion Gap Pending, BUN Pending, Creatinine Pending, BUN/Creatinine Ratio Pending , CBC w Diff Pending, WBC Pending, RBC Pending, Hgb Pending, Hct Pending, MCV Pending, MCH Pending, RDW Pending, Plt Count Pending, MPV Pending, PUBS MCHC Pending 05/21/17 2252: Anion Gap 12, Estimated GFR 32 L, BUN/Creatinine Ratio 15.0, Lactic Acid 1.1, Total Bilirubin 0.7, Direct Bilirubin 0.2, AST 24, ALT 39, Alkaline Phosphatase 58, Total Protein 6.4, Albumin 3.8, CBC w Diff NO MAN DIFF REQ, RBC 4.31, MCV 79.2 L, MCH 25.9 L, RDW 16.5 H, MPV 7.8, Gran % 71.4, Lymphocytes % 15.0 L, Monocytes % 10.4 H, Eosinophils % 2.8, Basophils % 0.4, Absolute Granulocytes 4.5, Absolute Lymphocytes 0.9 L, Absolute Monocytes 0.7 H, Absolute Eosinophils 0.2, Absolute Basophils 0, PUBS MCHC 32.7 L 05/21/170: Urine Color YEL, Urine Clarity CLDY H, Urine pH 6.0, Ur Specific [place] 1.015, Urine Protein 30 H, Urine Ketones NEG, Urine Nitrite NEG, Urine Bilirubin NEG, Urine Urobilinogen 0.2, Ur Leukocyte Esterase LARGE H, Ur Microscopic SEDIMENT EXAMINED, Urine RBC 50-75 H, Urine WBC > 75 H, Ur Epithelial Cells MOD H, Urine Bacteria FEW H, Urine Hemoglobin MOD H, Urine Glucose NEG 05/21/171924: Lactic Acid 2.6 H 05/21/171651: Anion Gap 17 H, Estimated GFR 30 L, BUN/Creatinine Ratio 14.1, Glucose 139 H, Lactic Acid 3.3 H, Calcium 10.3 H, Total Bilirubin 0.7, AST 29, ALT 38, Alkaline Phosphatase 70, Lactate Dehydrogenase 378, Total Protein 7.4, Albumin 4.5, Globulin 2.9, Albumin/Globulin Ratio 1.6, Triglycerides 200 H, Lipase 752 H, CBC w Diff NO MAN DIFF REQ, RBC 4.94, MCV 79.0 L, MCH 25.9 L, RDW 16.2 H, MPV 7.8, Gran % 79.8 H, Lymphocytes % 9.3 L, Monocytes % 8.2, Eosinophils % 2.4, Basophils % 0.3, Absolute Granulocytes 6.3, Absolute Lymphocytes 0.7 L, Absolute Monocytes 0.7 H, Absolute Eosinophils 0.2, Absolute Basophils 0, PUBS MCHC 32.7 L Microbiology 05/21 2145 STOOL: Clostridium difficile Toxin A & B - RECD 05/21 2145 STOOL: Cryptosporidium Antigen - RECD 05/21 2145 STOOL: Giardia Antigen (KARTIK) - RECD 05/21 2023 URINE ROUT: Urine Culture - COLB 05/21 1925 BLOOD: Blood Culture - RECD 05/21 1845 BLOOD: Blood Culture - RECD Assessment/Plan Assessment: The patient is 67 yo F with a pmx of hypertension, hyperlipidemia, incarcerated umbilical hernia and colostomy, kidney stones, depression, and diabetes presenting with 3-4 days of acute onset, sharp, intermittent and remaining abd pain. 05/21 CT abdomen: Large anterior abdominal wall hernia without obstruction or vascular compromise, diverticulosis, residual contrast and stool in rectum, staghorn calculus right kidney without hydronephrosis, questionable inflammatory versus neoplastic thickening just distal calculus at the ureteropelvic junction/ proximal ureter #Abdominal pain and vomiting: Differential includes gastroenteritis, Clostridium difficile infection, pancreatitis, UTI, pyelonephritis. We will follow blood cultures. She is afebrile with a white count of 6.8. Lipase 752, triglycerides 200. Urinalysis showed greater than 75 WBCs and large leukocyte esterase. She has no dysuria, but does have increased frequency. She also has the staghorn calculus in the right kidney on CT, inflammatory versus neoplastic thickening. We'll consult urology about this. -f/u stool studies: hemoccult, stool cultures, ova and parasite, and C. difficile. -Zofran 4 mg IV every 6 hours when necessary nausea and vomiting -Pain scale: Acetaminophen 650 mg by mouth every 6 hours for pain scale 1-3, oxycodone 5 mg by mouth every 6 hours for pain scale 4-6,morphine 2mg iv mg by mouth every 6 hours for pain scale 7-10 -Follow blood cultures, C. difficile -Follow up urology consult. -Full liquid diet today -D5 half-normal saline 100 mL/HR #GHAZAL: Creatinine is 1.7 on arrival. Today is 1.5 with fluid resuscitation. We will continue to trend this. This may be prerenal versus obstructive. There are no obstructing stones on CT. She has had poor intake recently. She received 1 L of normal saline last night. -Continue fluids as above -Monitor BMP #Eectrolyte abnormality: The patient was found to have a sodium of 133, potassium 5.3, chloride 94, CO2 of 21 on admission. Given the patient's history of pain and vomiting, the lack of by mouth nutrition and diarrhea has probably caused these metabolic derangement. Today her sodium is 133, anion gap has closed, come dioxide 21. -Follow-up BMP, replete lytes as needed -Continue fluids as above #Microcytic anemia: Likely anemia of chronic disease versus iron deficiency. -Follow up iron studies #chronic medical issues: Depression -Continue citalopram 10 mg by mouth daily, aspirin DVT prophylaxis -Heparin Full code Problem List: 1. Diabetes mellitus 2. Colostomy 3. Abdominal pain Pain Ratin Pain Location: Abdomen Pain Goal: Remain pain free Pain Plan: See assessment and plan Tomorrow's Labs & Rationales: CBC, BEP, LFTs Full code
--- NOTE | 2017-05-22 08:05 | PN- Student ---
Subjective Subjective: Mrs. Zamarripa is a 67 yo female with a past medical history of HTN, hyperlipidemia, incarcerated umblilical hernia and colostomy, kidney stones, depression and diabetes presenting for 3-4 days of LUQ abd pain. Overnight she slept for a total of 3hrs and felt hungery but was not able to eat due to a liquid diet. She has been drinking plenty of water. She had no nausea and vomitting overnight and had non-radiating, achey, 5/10 LUQ pain. She is also taking a medicaction for right eye macular degeneration 2 times a day (possibly pegaptanib). She does not remember the name of this medication but knows that it starts with a p. Her daughter visit her often and she lives with her brother. She says that she has a great family support system. Objective Objective: Physical exam: Vitals: T:98.2, O2stat: 96 RA, RR: 20, BP 120/70 Lungs: CTA BL CV: Normal S1 and S2, No R/M/G Adb: Normal bowel sounds, no tenderness, gaurding or rebound tenderness to palpation Ext: DP/PT 2+ pulses BL, no edema Results Results: Laboratory Tests 05/22/17 0647: Anion Gap 12, Estimated GFR 34 L, BUN/Creatinine Ratio 14.7, CBC w Diff NO MAN DIFF REQ, RBC 4.32, MCV 79.7 L, MCH 26.3 L, RDW 16.6 H, MPV 8.4, Gran % 69.6, Lymphocytes % 13.7 L, Monocytes % 12.6 H, Eosinophils % 3.5, Basophils % 0.6, Absolute Granulocytes 4.7, Absolute Lymphocytes 0.9 L, Absolute Monocytes 0.9 H, Absolute Eosinophils 0.2, Absolute Basophils 0, PUBS MCHC 33.0 05/21/17 2252: Anion Gap 12, Estimated GFR 32 L, BUN/Creatinine Ratio 15.0, Lactic Acid 1.1, Total Bilirubin 0.7, Direct Bilirubin 0.2, AST 24, ALT 39, Alkaline Phosphatase 58, Total Protein 6.4, Albumin 3.8, CBC w Diff NO MAN DIFF REQ, RBC 4.31, MCV 79.2 L, MCH 25.9 L, RDW 16.5 H, MPV 7.8, Gran % 71.4, Lymphocytes % 15.0 L, Monocytes % 10.4 H, Eosinophils % 2.8, Basophils % 0.4, Absolute Granulocytes 4.5, Absolute Lymphocytes 0.9 L, Absolute Monocytes 0.7 H, Absolute Eosinophils 0.2, Absolute Basophils 0, PUBS MCHC 32.7 L 05/21/170: Urine Color YEL, Urine Clarity CLDY H, Urine pH 6.0, Ur Specific [place] 1.015, Urine Protein 30 H, Urine Ketones NEG, Urine Nitrite NEG, Urine Bilirubin NEG, Urine Urobilinogen 0.2, Ur Leukocyte Esterase LARGE H, Ur Microscopic SEDIMENT EXAMINED, Urine RBC 50-75 H, Urine WBC > 75 H, Ur Epithelial Cells MOD H, Urine Bacteria FEW H, Urine Hemoglobin MOD H, Urine Glucose NEG 05/21/171924: Lactic Acid 2.6 H 05/21/171651: Anion Gap 17 H, Estimated GFR 30 L, BUN/Creatinine Ratio 14.1, Glucose 139 H, Lactic Acid 3.3 H, Calcium 10.3 H, Total Bilirubin 0.7, AST 29, ALT 38, Alkaline Phosphatase 70, Lactate Dehydrogenase 378, Total Protein 7.4, Albumin 4.5, Globulin 2.9, Albumin/Globulin Ratio 1.6, Triglycerides 200 H, Lipase 752 H, CBC w Diff NO MAN DIFF REQ, RBC 4.94, MCV 79.0 L, MCH 25.9 L, RDW 16.2 H, MPV 7.8, Gran % 79.8 H, Lymphocytes % 9.3 L, Monocytes % 8.2, Eosinophils % 2.4, Basophils % 0.3, Absolute Granulocytes 6.3, Absolute Lymphocytes 0.7 L, Absolute Monocytes 0.7 H, Absolute Eosinophils 0.2, Absolute Basophils 0, PUBS MCHC 32.7 L Microbiology 05/21 2145 STOOL: Clostridium difficile Toxin A & B - RECD 05/21 2145 STOOL: Cryptosporidium Antigen - RECD 05/21 2145 STOOL: Giardia Antigen (FADIA) - RECD 05/21 2023 URINE ROUT: Urine Culture - COLB 05/21 1925 BLOOD: Blood Culture - RECD 05/21 1845 BLOOD: Blood Culture - RECD Assessment/Plan Assessment: Mrs. Zamarripa is a 67 yo female with a past medical history of HTN, hyperlipidemia, incarcerated umblilical hernia and colostomy, kidney stones, depression and diabetes presenting for 3-4 days of LUQ abd pain. Abdominal CT showed no acute process but showed a large anterior wall abd hernia, chronic diverticulosis, and staghorn caculus on the right. UA was positive for leukocyte esterase, WBC>75, moderate epithielial cells, and few bacteria but was negative for nitrates. Blood work revealed metablic acidosis with anion gap of 17 and electrolyte abnormalities. Plan: 1. LUQ abdominal pain: Patient had 3-4 days of intermittent sharp abd. pain. One day ago patient presented with 1 episode of emisis and nausea. She was also taking 250mg IBprofene 4 per day. This may lead to a potential GI ulcer. However the stool through the ostomy appeared green and had no blood or melena indicating gastroenteritis. -Pending cultures for C. Diff toxin A, Crytosporidium antigen, Giardia Antigen, Urine, Blood. -Currently treating for gastroenteritis symptomatically -Zofran, continue to follow the lactic acid, discontinue IBprofene -Abdominal exam in the morning showed no tenderness to palpation and improvement in pain level. Therefore, Ultrasound is not indicated. -Pain medications Acetaminophen 650mg PO q6h for pain level between 1 and 3, oxycodone 5mg PO q6H for pain level 4-6, morphine 2mg PO q6h for pain between 7 and 10 2. UTI: UA was negative for nitrates but was postive for Leukocyte esterase and WBC. If the blood culture is positive will treat. 3. Acute kidney injury: Creatinine was 1.7. She has poor PO intake and diarrhea which may lead to GHAZAL. Continue fluids and monitor BMP 4. electrolyte abnormality The patient was found to have a sodium of 133, potassium 5.3, chloride 94, CO2 of 21. -continue to repeat BMP -replenish electrolytes as needed -Continue fluids 5. Depression -Continue citalopram 10 mg by mouth daily 6. DVT prophylaxis -continue with Heparin Heparin
[2017-05-22 08:09] LABS: ABSOLUTE BASOPHIL COUNT 0 /CUMM (0.0-0.2); ABSOLUTE EOSINOPHIL COUNT 0.2 /CUMM (0.0-0.7); ABSOLUTE GRANULOCYTE CT 4.7 /CUMM (1.4-6.5); ABSOLUTE LYMPH COUNT 0.9 /CUMM (1.2-3.4); ABSOLUTE MONOCYTE COUNT 0.9 /CUMM (0.10-0.60); BASOPHIL % 0.6 % (0.0-2.0); EOSINOPHIL % 3.5 % (0-5); GRANULOCYTE % 69.6 % (42.2-75.2); HEMATOCRIT 34.4 % (37-47); MEAN CORPUSCULAR HGB 26.3 PG (27.0-31.0); MEAN CORPUSCULAR VOLUME 79.7 FL (81.0-99.0); MEAN PLATELET VOLUME 8.4 FL (7.4-10.4); PLATELET COUNT 240 /CUMM (130-400); RBC DISTRIBUTION WIDTH 16.6 % (11.5-14.5); RED BLOOD CELL CT 4.32 /CUMM (4.20-5.40); WHITE BLOOD CELL COUNT 6.8 /CUMM (4.8-10.8)
[2017-05-22 14:44] VITALS: BP 114/56
--- NOTE | 2017-05-22 17:00 | Cons- Urology ---
General Information and HPI Consulting Request Date of Consult: 05/22/17 Requested By: SUSY MORATAYA MD Reason for Consult: right staghorn calculi Source of Information: patient Exam Limitations: no limitations History of Present Illness: 67 yo female with a pmh of HTN, hyperlipidemia, incarcerated umbilical hernia and colostomy, kidney stones, depression, and DM with hx of 3-4 days of left lower abd pain that started suddenly with diarrhea. This shooting pain that is non radiating improved with ibuprofen. She has been imbibing a lot of water fo rher kidney stones hx. She had 3 episodes of vomiting. No gross hematuturia but with urinary frequency. She does not have stents in place and was instructed to take Pot citrate meds to dissolve the uric acid stones she has on the right side but she did not take it bc it was too expensive as reported today. She has been drinking lemon water. She has no RUQ or right flank pain. She has seen me once in the past 02/24 and has not returned for FU as instructed 3 months after her initial visit with imaging. Allergies/Medications Allergies: Coded Allergies: NO KNOWN ALLERGIES (05/07/13) Home Med List: Amlodipine Besylate 10 MG TABLET 1 TAB PO DAILY HEART/BP (Reported) Aspirin (Ecotrin*) 81 MG TABLET.DR 1 TAB PO DAILY HEART/BLOOD (Reported) Calcium (Elemental-Fr Calcarb) (Calcium) 600 MG CALCIUM (1,500 MG) TABLET 1 TAB PO DAILY SUPPLEMENT (Reported) Cholecalciferol (Vitamin D3) (Vitamin D) 2,000 UNIT TABLET 1 TAB PO DAILY SUPPLEMENT (Reported) Citalopram Hydrobromide (Citalopram HBr) 10 MG TABLET 1 TAB PO DAILY MENTAL HEALTH (Reported) Lisinopril 5 MG TABLET 1 TAB PO DAILY BP (Reported) Lovastatin 40 MG TABLET 1 TAB PO DAILY CHOLESTEROL (Reported) with food Metformin HCl 1,000 MG TABLET 1 TAB PO BID DM (Reported) Metoprolol Tartrate 25 MG TABLET 1 TAB PO BID HEART/BP (Reported) Rush-3/Dha/Epa/Fish Oil (Fish Oil 1,000 MG Softgel) (Unknown Strength) CAPSULE (Unknown Dose) PO DAILY SUPPLEMENT (Reported) Current Medications: Current Medications Sig/Debby Start time Last Medication Dose Route Stop Time Status Admin Acetaminophen 0 .STK-MED ONE 07/11 2031 DC PO Acetaminophen 650 MG Q6 PRN 05/21 2030 AC 05/21 PO 2026 Acetaminophen 0 .STK-MED ONE 05/21 2030 DC PO Aspirin Buffered 81 MG DAILY 05/22 1000 AC 05/22 PO 1014 Citalopram 10 MG DAILY 05/21 2230 AC 05/22 Hydrobromide PO 1014 Dextrose/Sodium 1,000 ML Q10H 05/22 1015 AC 05/22 Chloride IV 1106 Heparin Sodium 5,000 UNIT Q8 05/21 2200 AC 05/22 (Porcine) SC 1326 Insulin Aspart 0 TIDAC 05/22 0800 AC 05/22 SC 1019 Lactated Ringer's 1,000 ML ONCE ONE 05/21 1800 DC 05/21 IV 05/21 2159 1821 Morphine Sulfate 2 MG Q4P PRN 05/21 2030 AC 05/22 IV 1612 Ondansetron HCl 4 MG Q6P PRN 05/21 2045 AC IV Oxycodone HCl 5 MG Q6P PRN 05/21 2030 AC 05/22 PO 1103 Patient Medication 1 ED .STK-MED ONE 05/22 1434 DC Teaching ED 05/22 1435 Sodium Chloride 1,000 ML Q10H 05/21 2345 DC 05/22 IV 0045 Sodium Chloride 1,000 ML BOLUS ONE 05/21 1615 DC 05/21 IV 05/21 1714 1645 Past History Medical History Blood Transfusion Hx: No Neurological: NONE EENT: NONE Cardiovascular: hypertension, hyperlipidemia, aortic stenosis Respiratory: NONE Gastrointestinal: umbilical hernia Hepatic: NONE Renal: KIDNEY STONES Musculoskeletal: NONE Psychiatric: depression Endocrine: diabetes Blood Disorders: NONE Cancer(s): NONE SECTION BEAMER/Reproductive: NONE Surgical History Pertinent Surgical History: COLOSTOMY Psychosocial History Where Do You Live? Home Services at Home: None Smoking Status: Former Smoker (quit 20 years ago) ETOH Use: denies use Illicit Drug Use: denies illicit drug use Review of Systems Review of Systems Constitutional: Reports: see HPI. EENTM: Reports: no symptoms. Cardiovascular: Reports: no symptoms. Respiratory: Reports: no symptoms. GI: Reports: abdominal pain, bloating, diarrhea. Genitourinary: Reports: frequency. Musculoskeletal: Reports: no symptoms. Skin: Reports: no symptoms. Neurological/Psychological: Reports: no symptoms. Hematologic/Endocrine: Reports: no symptoms. Immunologic/Allergic: Reports: no symptoms. Exam & Diagnostic Data Vital Signs and I&O Vital Signs Date Time Temp Pulse Resp B/P B/P Pulse O2 O2 Flow FiO2 Mean Ox Delivery Rate 05/22 1444 98.5 100 20 114/56 95 Room Air 05/22 0632 98.2 92 20 120/70 96 Room Air 05/21 2202 98.1 95 18 128/62 97 Room Air 05/21 2009 98.4 94 16 112/50 97 Room Air 05/21 1821 89 18 100/52 97 Room Air 05/21 1747 98 05/21 1714 98.2 82 16 92/52 98 Room Air Intake & Output 05/22 1600 05/22 0800 05/22 0000 05/21 1600 05/21 0800 05/21 0000 Intake Total 2780 550 2090 Output Total 650 1200 675 Balance 2130 -650 1415 Intake, IV 163 790 1251 Intake, Oral 1980 50 240 Output, 100 Emesis Output, Stool 650 900 575 Output, Urine 300 Patient 99.79 kg 90.718 kg Weight Weight Reported by Patient Reported by Patient Measurement Method Physical Exam: awake and alert, NAD lying in bed no CVAT Abd soft, ND/mild tenderness in LLQ No fong in place Physical Exam General Appearance: well developed/nourished, no apparent distress, alert, awake , comfortable Head: atraumatic, normal appearance Eyes: Bilateral: normal appearance. Ears, Nose, Throat: normal ENT inspection Neck: normal inspection Respiratory: no respiratory distress, quiet respiration Gastrointestinal: soft Rectal: deferred Neurologic/Psych: awake, alert, oriented x 3 Cranial Nerves: normal hearing, normal speech Skin: intact, normal color, warm/dry Imaging Results: CT abd/pelvis: KIDNEYS, URETERS, AND ADRENALS: There is a large staghorn calculus occupying the majority of the right renal pelvis extending into the calyces with Hounsfield unit measurements in the 4-500s suggesting a noncalcified most likely uric acid stone unless the patient is on antiretroviral therapy. This calculus measures approximately 3 cm in maximal size in the calyx largely unchanged. Other subcentimeter right renal calculi are again noted largely unchanged. Just distal to the level of the calculus is moderate soft tissue stranding somewhat masslike in appearance best seen image 51 series 2 measuring 3.4 x 2.1 cm largely unchanged indeterminate in etiology. This appears somewhat improved compared with the previous exam and appear more inflammatory the prior exam. Findings may represent chronic scarring in this region. There are no left-sided calculi, previously identified left UVJ calculus has passed. No residual hydroureteronephrosis. URINARY BLADDER: Collapsed and unremarkable. Assessment/Plan Assessment/Plan 67yo female with multiple med problems admitted with LLQ pain. Pt has a hx of a large right renal stone and has not been compliant with meds due to cost reasons. She is drinking a lot o f fluids according to the pt. Recommend outpatient FU. She may need to consider surgery for her large stone if she is not going to take po meds to reduce the size of the right renal stone. It is asympomtatic. She has a soft tissue abnormal region distal to the stone that could be evaluated with ureteroscopy management of the stone. Recommend ESWL sandwich therapy with the URS. FU as an outpt. Urine culture pending but appears negative. Blood cultures prelim neg. Consult Acknowledgment - Thank you for your consult request.
[2017-05-22 21:51] VITALS: BP 118/60
[2017-05-23 06:31] VITALS: BP 128/68
--- NOTE | 2017-05-23 06:39 | PN- Student ---
Subjective Subjective: Mrs. Zamarripa says that she is feeling much better today. She slept though the night and her pain level is a 1/10 in the LLQ. She still has diarrhea with green stools but no vomitting. She wanted to inform us that she also has macular degeneration in the right eye for which she taks PreserVision AREDS 2 BID. She denies any chest pain, dizziness, palpitations,headache, chills or fever. Objective Objective: Physical exam: Vitals: 6:31 am: Temp: 99.2, Pulse: 68, RR: 20, BP: 128/68, Pulse Ox: 95 Lungs: CTA BL CV: Normal S1 and S2, No R/G, holosystolic mumur Adb: Normal bowel sounds, no tenderness, gaurding or rebound tenderness to palpation Ext: DP/PT 2+ pulses BL, no edema Results Results: Laboratory Tests 05/22/17 0647: Anion Gap 12, Estimated GFR 34 L, BUN/Creatinine Ratio 14.7, Iron 43, TIBC 310, Ferritin 22.3, CBC w Diff NO MAN DIFF REQ, RBC 4.32, MCV 79.7 L, MCH 26.3 L, RDW 16.6 H, MPV 8.4, Gran % 69.6, Lymphocytes % 13.7 L, Monocytes % 12.6 H, Eosinophils % 3.5, Basophils % 0.6, Absolute Granulocytes 4.7, Absolute Lymphocytes 0.9 L, Absolute Monocytes 0.9 H, Absolute Eosinophils 0.2, Absolute Basophils 0, PUBS MCHC 33.0 05/21/17 2252: Anion Gap 12, Estimated GFR 32 L, BUN/Creatinine Ratio 15.0, Lactic Acid 1.1, Total Bilirubin 0.7, Direct Bilirubin 0.2, AST 24, ALT 39, Alkaline Phosphatase 58, Total Protein 6.4, Albumin 3.8, CBC w Diff NO MAN DIFF REQ, RBC 4.31, MCV 79.2 L, MCH 25.9 L, RDW 16.5 H, MPV 7.8, Gran % 71.4, Lymphocytes % 15.0 L, Monocytes % 10.4 H, Eosinophils % 2.8, Basophils % 0.4, Absolute Granulocytes 4.5, Absolute Lymphocytes 0.9 L, Absolute Monocytes 0.7 H, Absolute Eosinophils 0.2, Absolute Basophils 0, PUBS MCHC 32.7 L 05/21/17 1930: Urine Color YEL, Urine Clarity CLDY H, Urine pH 6.0, Ur Specific [place] 1.015, Urine Protein 30 H, Urine Ketones NEG, Urine Nitrite NEG, Urine Bilirubin NEG, Urine Urobilinogen 0.2, Ur Leukocyte Esterase LARGE H, Ur Microscopic SEDIMENT EXAMINED, Urine RBC 50-75 H, Urine WBC > 75 H, Ur Epithelial Cells MOD H, Urine Bacteria FEW H, Urine Hemoglobin MOD H, Urine Glucose NEG 05/21/171924: Lactic Acid 2.6 H 05/21/171651: Anion Gap 17 H, Estimated GFR 30 L, BUN/Creatinine Ratio 14.1, Glucose 139 H, Lactic Acid 3.3 H, Calcium 10.3 H, Total Bilirubin 0.7, AST 29, ALT 38, Alkaline Phosphatase 70, Lactate Dehydrogenase 378, Total Protein 7.4, Albumin 4.5, Globulin 2.9, Albumin/Globulin Ratio 1.6, Triglycerides 200 H, Lipase 752 H, CBC w Diff NO MAN DIFF REQ, RBC 4.94, MCV 79.0 L, MCH 25.9 L, RDW 16.2 H, MPV 7.8, Gran % 79.8 H, Lymphocytes % 9.3 L, Monocytes % 8.2, Eosinophils % 2.4, Basophils % 0.3, Absolute Granulocytes 6.3, Absolute Lymphocytes 0.7 L, Absolute Monocytes 0.7 H, Absolute Eosinophils 0.2, Absolute Basophils 0, PUBS MCHC 32.7 L Microbiology 05/21 2145 STOOL: Clostridium difficile Toxin A & B - COMP 05/21 2145 STOOL: Cryptosporidium Antigen - COMP 05/21 2145 STOOL: Giardia Antigen (FADIA) - COMP 05/21 2023 URINE ROUT: Urine Culture - COLB 05/21 1925 BLOOD: Blood Culture - RES 05/21 1845 BLOOD: Blood Culture - RES Abdominal CT: no acute process but showed a large anterior wall abd hernia, chronic diverticulosis, and staghorn caculus on the right. UA: positive for leukocyte esterase, WBC>75, moderate epithielial cells, and few bacteria but was negative for nitrates. Culture is pending but is preliminarily negative Blood work revealed metablic acidosis with anion gap of 17 and electrolyte abnormalities. Cultures for C. Diff toxin A, Crytosporidium antigen, Giardia Antigen were all negative Assessment/Plan Assessment: Mrs. Zamarripa is a 67 yo female with a past medical history of HTN, hyperlipidemia, incarcerated umblilical hernia and colostomy, kidney stones, depression and diabetes presenting for 3-4 days of LLQ abd pain. Symptoms are improved and pain level is currently 1/10 however diarrhea is still present. Cultures for C. Diff toxin A, Crytosporidium antigen, Giardia Antigen were all negative. According to the urologist, since the patient has a soft tissue abnormal region distal to the stone on abd. CT it is recommened that she have shock wave lithotripsy (ESWL) sandwich therapy with the rigid and flexible ureteroscopy (URS) outpatient. Plan: 1. LLQ abdominal pain: Patient had 3-4 days of intermittent sharp abd. pain. Two days ago patient presented with 1 episode of emisis and nausea. She was also taking 250mg IBprofene 4 per day. This may lead to a potential GI ulcer. However the stool through the ostomy appeared green and had no blood or melena indicating gastroenteritis. -Currently treating for gastroenteritis symptomatically -Zofran, continue to follow the lactic acid, discontinue IBprofene -Repeat culture for C. Diff toxin A to rule out C. Diff. -Pain medications Acetaminophen 650mg PO q6h PRN for pain level between 1 and 3, oxycodone 5mg PO q6H PRN for pain level 4-6, morphine sulfate 2mg IV q4h PRN for pain between 7 and 10 2. Right renal stone: She has a right staghorn calculus. She has recieved treatment for this on the outpatient basis however she has not followed treatment plan. Dr. Jeter suggests a ESWL sandwich therapy with the URS outpt. 3. Acute kidney injury and electrolyte abnormality: The patient was found to have a sodium of 133, potassium 5.3, chloride 94, CO2 of 21. Creatinine was 1.7. She has poor PO intake and diarrhea which may lead to GHAZAL. Continue fluids and monitor BMP -D5W-1/2 normal 1000ml q10h IV 5. Chronic health conditions: HTN, hyperlipidemia, incarcerated umblilical hernia and colostomy, kidney stones, depression, diabetes, depression -Continue citalopram 10 mg by mouth daily -asprin buffer 81mg -insulin aspart 6. DVT prophylaxis -continue with Heparin 5000 units Q8h sc 7. Code status Full code Full code Full code
--- NOTE | 2017-05-23 06:55 | PN- Housestaff ---
See Addendum Subjective Follow-up For: gastroenteritis/GHAZAL Subjective: She did well overnight. Armando Hutton MD saw her yesterday and recommended outpatient follow-up for the staghorn calculus. She also may need ESWL sandwich therapy. She had no pain overnight, this morning she has 1/10 pain on left side of her abdomen. No nausea. Appetite is good and she ate well this morning. She still producing a lot of output in her bag that is watery. She is getting a lot of fluids for her GHAZAL. Review of Systems Constitutional: Reports: no symptoms. EENTM: Reports: no symptoms. Cardiovascular: Reports: no symptoms. Respiratory: Reports: no symptoms. Gastrointestinal: Reports: see HPI. Genitourinary: Reports: see HPI. Musculoskeletal: Reports: no symptoms. Skin: Reports: no symptoms. Neurological/Psychological: Reports: no symptoms. Hematologic/Endocrine: Reports: no symptoms. Immunologic/Allergic: Reports: no symptoms. Objective Last 24 Hrs of Vital Signs/I&O Vital Signs Date Time Temp Pulse Resp B/P B/P Pulse O2 O2 Flow FiO2 Mean Ox Delivery Rate 05/23 0631 99.2 68 20 128/68 95 Room Air 05/22 2151 98.3 108 19 118/60 95 Room Air 05/22 1444 98.5 100 20 114/56 95 Room Air Intake & Output 05/23 1600 05/23 0800 05/23 0000 Intake Total 1040 1520 Output Total 2000 1400 Balance -960 120 Intake, IV 800 800 Intake, Oral 240 720 Output, Stool 1100 800 Output, Urine 900 600 Physical Exam General Appearance: Alert, Oriented X3, Cooperative, No Acute Distress Cardiovascular: Regular Rate, Normal S1, Normal S2 Lungs: Clear to Auscultation Abdomen: tenderto palpation the left side. Ostomy bag with watery green fluid. No surrounding erythema. Extremities: No Edema Current Medications: Current Medications Sig/Debby Start time Last Medication Dose Route Stop Time Status Admin Acetaminophen 650 MG Q6 PRN 05/21 2030 AC 05/21 PO 2025 Aspirin Buffered 81 MG DAILY 05/22 1000 AC 05/22 PO 1014 Citalopram 10 MG DAILY 05/21 2230 AC 05/22 Hydrobromide PO 1014 Dextrose/Sodium 1,000 ML Q10H 05/22 1015 AC 05/23 Chloride IV 0519 Heparin Sodium 5,000 UNIT Q8 05/21 2200 AC 05/23 (Porcine) SC 0519 Insulin Aspart 0 TIDAC 05/22 0800 AC 05/22 SC 1706 Morphine Sulfate 2 MG Q4P PRN 05/21 2030 AC 05/22 IV 1612 Ondansetron HCl 4 MG Q6P PRN 05/21 2045 AC IV Oxycodone HCl 5 MG Q6P PRN 05/21 2030 AC 05/22 PO 1103 Patient Medication [address] 05/22 1434 [place] Teaching ED 05/22 1435 Sodium Chloride 1,000 ML Q10H 05/21 2345 DC 05/22 IV 0045 Last 24 Hrs of Lab/Kartik Results Last 24 Hrs of Labs/Mics: Laboratory Tests 05/23/17 0657: Sodium Pending, Potassium Pending, Chloride Pending, Carbon Dioxide Pending, Anion Gap Pending, BUN Pending, Creatinine Pending, BUN/Creatinine Ratio Pending , Total Bilirubin Pending, Direct Bilirubin Pending, AST Pending, ALT Pending, Alkaline Phosphatase Pending, Total Protein Pending, Albumin Pending, CBC w Diff Pending, WBC Pending, RBC Pending, Hgb Pending, Hct Pending, MCV Pending, MCH Pending, RDW Pending, Plt Count Pending, MPV Pending, PUBS MCHC Pending Assessment/Plan Assessment: The patient is 67 yo F with a pmx of hypertension, hyperlipidemia, incarcerated umbilical hernia and colostomy, kidney stones, depression, and diabetes presenting with 3-4 days of acute onset, sharp, intermittent and remaining abd pain. 05/21 CT abdomen: Large anterior abdominal wall hernia without obstruction or vascular compromise, diverticulosis, residual contrast and stool in rectum, staghorn calculus right kidney without hydronephrosis, questionable inflammatory versus neoplastic thickening just distal calculus at the ureteropelvic junction/ proximal ureter #Abdominal pain and vomiting: Differential includes gastroenteritis, UTI, pyelonephritis. Cultures negative so far. We will follow blood cultures. She continues to be afebrile. Her pain has improved and is now 1/10 area no nausea. This may all be due to the staghorn calculus. Dr. Pan saw her yesterday and recommended outpatient follow-up. She may need ESWL sandwich therapy -f/u stool studies: hemoccult, stool cultures, ova and parasite, and C. difficile. -Zofran 4 mg IV every 6 hours when necessary nausea and vomiting -Pain scale: Acetaminophen 650 mg by mouth every 6 hours for pain scale 1-3, oxycodone 5 mg by mouth every 6 hours for pain scale 4-6,morphine 2mg iv mg by mouth every 6 hours for pain scale 7-10 -Follow blood culture -Follow up urology consult. -Full liquid diet today -Stop D5 half-normal saline 100 mL/HR and start NS 75/hour -Repeat C. difficile -Advance diet from full liquids to diabetic #GHAZAL: Creatinine is 1.7 on arrival. Today is 1.3 with fluid resuscitation. We will continue to trend this. This may be prerenal versus obstructive. There are no obstructing stones on CT. She has had poor intake recently. -Continue fluids as above -Monitor BMP #Eectrolyte abnormality: The patient was found to have a sodium of 133, potassium 5.3, chloride 94, CO2 of 21 on admission. Given the patient's history of pain and vomiting, the lack of by mouth nutrition and diarrhea has probably caused these metabolic derangement. Today her sodium is 136, anion gap has closed, come dioxide 23. -Follow-up BMP, replete lytes as needed -Continue fluids as above #Microcytic anemia: Iron studies are normal. -Due to monitor #chronic medical issues: Depression -Continue citalopram 10 mg by mouth daily, aspirin DVT prophylaxis -Heparin Full code Problem List: 1. Colostomy 2. Abdominal pain 3. Electrolyte abnormality Pain Ratin Pain Location: Abdomen Pain Goal: Remain pain free Pain Plan: See assessment plan Tomorrow's Labs & Rationales: CBC, BEP
[2017-05-23 09:00] LABS: ABSOLUTE BASOPHIL COUNT 0 /CUMM (0.0-0.2); ABSOLUTE EOSINOPHIL COUNT 0.3 /CUMM (0.0-0.7); ABSOLUTE GRANULOCYTE CT 3.5 /CUMM (1.4-6.5); ABSOLUTE LYMPH COUNT 0.9 /CUMM (1.2-3.4); ABSOLUTE MONOCYTE COUNT 0.8 /CUMM (0.10-0.60); BASOPHIL % 0.5 % (0.0-2.0); EOSINOPHIL % 4.8 % (0-5); GRANULOCYTE % 63.3 % (42.2-75.2); HEMATOCRIT 33.5 % (37-47); MEAN CORPUSCULAR HGB 26.5 PG (27.0-31.0); MEAN CORPUSCULAR HGB CONC 33.4 G/DL (33.0-37.0); MEAN CORPUSCULAR VOLUME 79.3 FL (81.0-99.0); MEAN PLATELET VOLUME 8.3 FL (7.4-10.4); PLATELET COUNT 241 /CUMM (130-400); RBC DISTRIBUTION WIDTH 16.5 % (11.5-14.5); RED BLOOD CELL CT 4.22 /CUMM (4.20-5.40); WHITE BLOOD CELL COUNT 5.6 /CUMM (4.8-10.8)
--- NOTE | 2017-05-23 11:19 | Discharge Summary ---
Visit Information Visit Dates Admission Date: 05/21/17 Discharge Date: 05/24/17 Hospital Course Course Attending Physician: SUSY MORATAYA MD Primary Care Physician: MEMO NAJERA,[facility] Course: The patient is 67 yo F with a pmx of hypertension, hyperlipidemia, incarcerated umbilical hernia and colostomy, kidney stones, depression, and diabetes who presented with 3-4 days of acute onset, sharp, intermittent and remaining abd pain. Significant labs in emergency department, no leukocytosis white count of 7.9, granulocytes 79.8, platelet count 95, hemoglobin of 12.8 and hematocrit of 39, significant electrolyte abnormalities including hyponatremia sodium 133, hyperkalemia, potassium 5.3, chloride 94, carbon dioxide 21, BUN 24 and creatinine 1.7 (baseline creatinine of 0.9-1), significant lactic acidosis, lactic acid on admission 3.3, triglycerides of 200 and lipase of 752, dirty urine with greater than 75 WBCs, epithelial cells, positive leukocyte esterase. She was admitted to general medicine and treated for the following problems: 1. Viral gastroenteritis 2. staghorn calculus 3. acute kidney injury 05/21 CT abdomen: Large anterior abdominal wall hernia without obstruction or vascular compromise, diverticulosis, residual contrast and stool in rectum, staghorn calculus right kidney without hydronephrosis, questionable inflammatory versus neoplastic thickening just distal calculus at the ureteropelvic junction/ proximal ureter. #Abdominal pain and vomiting likely due to viral gastroenteritis: On presentation, blood cultures were taken and were negative through. Stool studies were also negative. She was initially have green liquidy output from the ostomy that gradually became more formed and brown as she recovered. She was followed off antibiotics and her pain improved. She was afebrile throughout. She is now feeling better and tolerating a regular diet. #Staghorn calculus. This was an incidental finding on CT that likely did not cause her acute symptoms. She should follow up with urology for tpossible ESWL sandwich therapy. #GHAZAL: Her creatinine was 1.7 on arrival. With fluid resuscitation, this improved over several days and it is now at baseline. This was likely prerenal due to dehydration. #Electrolyte abnormality: hyponatremia, hyperkalemia, and acidosis: The patient was found to have a sodium of 133, potassium 5.3, chloride 94, CO2 of 21 on admission. She was likely caused by lack of nutrition and diarrhea. Since then her sodium and other electrolytes have improved with fluid hydration. #Microcytic anemia: Incidental finding on CBC. Iron studies were normal. This is likely due to anemia of chronic disease. She is asymptomatic and does not require further follow up. #chronic medical issues: Depression -Home medications citalopram 10 mg by mouth daily, aspirin were continued Allergies: Coded Allergies: NO KNOWN ALLERGIES (05/07/13) Disposition Summary Disposition Principal Diagnosis: Gastroenteritis, acute kidney injury Additional Diagnosis: Hypertension, hyperlipidemia, diabetes, nephrolithiasis, ostomy Discharge Disposition: home or self care Discharge Instructions General Discharge Information Code Status: Full Code Patient's Diet: Diabetic diet Patient's Activity: As tolerated Follow-Up Instructions/Appts: Please follow-up with your PCP in 1-2 weeks. Please follow up with Dr. Jeter, the urologist, in 1-2 weeks as well. Please take all medications as directed. Medications at Discharge Discharge Medications: Continue taking these medications: Metformin HCl (Metformin HCl) 1,000 MG TABLET 1 Tablet ORAL TWICE DAILY Qty = 180 Comments: not given in hospital Citalopram Hydrobromide (Citalopram HBr) 10 MG TABLET 1 Tablet ORAL DAILY Qty = 30 Comments: Last Taken:05/24/17 Time:0900am Lovastatin (Lovastatin) 40 MG TABLET 1 Tablet ORAL DAILY Qty = 90 Instructions: with food Comments: not given in hospital Amlodipine Besylate (Amlodipine Besylate) 10 MG TABLET 1 Tablet ORAL DAILY Qty = 90 Comments: not given in hospital Metoprolol Tartrate (Metoprolol Tartrate) 25 MG TABLET 1 Tablet ORAL TWICE DAILY Qty = 180 Comments: not given in hospital Lisinopril (Lisinopril) 5 MG TABLET 1 Tablet ORAL DAILY Qty = 90 Comments: not given in hospital Aspirin (Ecotrin*) 81 MG TABLET. 1 Tablet ORAL DAILY Comments: Last Taken:05/24/17 Time:0900am [place]-3/Dha/Epa/Fish Oil (Fish Oil 1,000 MG Softgel) (Unknown Strength) CAPSULE 1 Tablet ORAL DAILY Qty = 30 Comments: not given in hospital Cholecalciferol (Vitamin D3) (Vitamin D) 2,000 UNIT TABLET 1 Tablet ORAL DAILY Comments: not given in hospital Calcium (Elemental-Fr Calcarb) (Calcium) 600 MG CALCIUM (1,500 MG) TABLET 1 Tablet ORAL DAILY Comments: not given in hospital Copies To: EMMY NAJERA,HANNAH; MEMO NAJERA,SHAY Attending MD Review Statement Documenting Attending: SUSY MORATAYA MD
--- NOTE | 2017-05-23 14:00 | NUR ---
PT HAS QUESTIONS ABOUT WHY SHE WAS PLACED ON A LACTOSE FREE DIET AT THIS TIME. DR HOUGH NOTIFED AND AT BEDSIDE TO EXPLAIN DIET AT THIS TIME.
[2017-05-23 14:07] VITALS: BP 124/60
[2017-05-23 22:06] VITALS: BP 116/66
[2017-05-24 06:13] VITALS: BP 123/70
--- NOTE | 2017-05-24 08:13 | PN- Student ---
Subjective Subjective: Mrs. Zamarripa said that her pain is currently 0/10 and she is feeling no pain. She is still having diarrhea that is green. She had good night sleep and is looking forward to going home soon. She denies chest pain, palpitations, dizziness. Objective Objective: Physical exam: Vitals: 6:13 Temp: 97.6, Pulse:80, RR:20, BP:123/70, Pulse Ox:97 Lungs: CTA BL CV: Normal S1 and S2, No R/G, holosystolic mumur Adb: Normal bowel sounds, no tenderness, gaurding or rebound tenderness to palpation, ostomy does not appear to be infected. Ext: DP/PT 2+ pulses BL, no edema Results Results: Laboratory Tests 05/24/17 0647: Sodium Pending, Potassium Pending, Chloride Pending, Carbon Dioxide Pending, Anion Gap Pending, BUN Pending, Creatinine Pending, BUN/Creatinine Ratio Pending , CBC w Diff Pending, WBC Pending, RBC Pending, Hgb Pending, Hct Pending, MCV Pending, MCH Pending, RDW Pending, Plt Count Pending, MPV Pending, PUBS MCHC Pending 05/23/17 0657: Anion Gap 12, Estimated GFR 41 L, BUN/Creatinine Ratio 10.0, Phosphorus 3.3, Magnesium 1.8, Total Bilirubin 0.5, Direct Bilirubin 0.2, AST 22, ALT 38, Alkaline Phosphatase 73, Total Protein 6.3, Albumin 3.7, CBC w Diff NO MAN DIFF REQ, RBC 4.22, MCV 79.3 L, MCH 26.5 L, RDW 16.5 H, MPV 8.3, Gran % 63.3, Lymphocytes % 16.5 L, Monocytes % 14.9 H, Eosinophils % 4.8, Basophils % 0.5, Absolute Granulocytes 3.5, Absolute Lymphocytes 0.9 L, Absolute Monocytes 0.8 H, Absolute Eosinophils 0.3, Absolute Basophils 0, PUBS MCHC 33.4 05/22/17 0647: Anion Gap 12, Estimated GFR 34 L, BUN/Creatinine Ratio 14.7, Iron 43, TIBC 310, Ferritin 22.3, CBC w Diff NO MAN DIFF REQ, RBC 4.32, MCV 79.7 L, MCH 26.3 L, RDW 16.6 H, MPV 8.4, Gran % 69.6, Lymphocytes % 13.7 L, Monocytes % 12.6 H, Eosinophils % 3.5, Basophils % 0.6, Absolute Granulocytes 4.7, Absolute Lymphocytes 0.9 L, Absolute Monocytes 0.9 H, Absolute Eosinophils 0.2, Absolute Basophils 0, PUBS MCHC 33.0 05/21/17 2252: Anion Gap 12, Estimated GFR 32 L, BUN/Creatinine Ratio 15.0, Lactic Acid 1.1, Total Bilirubin 0.7, Direct Bilirubin 0.2, AST 24, ALT 39, Alkaline Phosphatase 58, Total Protein 6.4, Albumin 3.8, CBC w Diff NO MAN DIFF REQ, RBC 4.31, MCV 79.2 L, MCH 25.9 L, RDW 16.5 H, MPV 7.8, Gran % 71.4, Lymphocytes % 15.0 L, Monocytes % 10.4 H, Eosinophils % 2.8, Basophils % 0.4, Absolute Granulocytes 4.5, Absolute Lymphocytes 0.9 L, Absolute Monocytes 0.7 H, Absolute Eosinophils 0.2, Absolute Basophils 0, PUBS MCHC 32.7 L 05/21/17 1930: Urine Color YEL, Urine Clarity CLDY H, Urine pH 6.0, Ur Specific [place] 1.015, Urine Protein 30 H, Urine Ketones NEG, Urine Nitrite NEG, Urine Bilirubin NEG, Urine Urobilinogen 0.2, Ur Leukocyte Esterase LARGE H, Ur Microscopic SEDIMENT EXAMINED, Urine RBC 50-75 H, Urine WBC > 75 H, Ur Epithelial Cells MOD H, Urine Bacteria FEW H, Urine Hemoglobin MOD H, Urine Glucose NEG 05/21/17 1925: Lactic Acid 2.6 H 05/21/17 1652: Anion Gap 17 H, Estimated GFR 30 L, BUN/Creatinine Ratio 14.1, Glucose 139 H, Lactic Acid 3.3 H, Calcium 10.3 H, Total Bilirubin 0.7, AST 29, ALT 38, Alkaline Phosphatase 70, Lactate Dehydrogenase 378, Total Protein 7.4, Albumin 4.5, Globulin 2.9, Albumin/Globulin Ratio 1.6, Triglycerides 200 H, Lipase 752 H, CBC w Diff NO MAN DIFF REQ, RBC 4.94, MCV 79.0 L, MCH 25.9 L, RDW 16.2 H, MPV 7.8, Gran % 79.8 H, Lymphocytes % 9.3 L, Monocytes % 8.2, Eosinophils % 2.4, Basophils % 0.3, Absolute Granulocytes 6.3, Absolute Lymphocytes 0.7 L, Absolute Monocytes 0.7 H, Absolute Eosinophils 0.2, Absolute Basophils 0, PUBS MCHC 32.7 L Microbiology 05/23 1308 STOOL: Clostridium difficile Toxin A & B - CAN Cancelled: Cancelled via OE: Per MD Decision 05/21 2145 STOOL: Clostridium difficile Toxin A & B - COMP 05/21 2145 STOOL: Cryptosporidium Antigen - COMP 05/21 2145 STOOL: Giardia Antigen (FADIA) - COMP 05/21 2023 URINE ROUT: Urine Culture - RECD 05/21 1925 BLOOD: Blood Culture - RES 05/21 184 BLOOD: Blood Culture - RES Abdominal CT: no acute process but showed a large anterior wall abd hernia, chronic diverticulosis, and staghorn caculus on the right. UA: positive for leukocyte esterase, WBC>75, moderate epithielial cells, and few bacteria but was negative for nitrates. Culture is pending but is preliminarily negative Blood work revealed metablic acidosis with anion gap of 17 and electrolyte abnormalities. Cultures for C. Diff toxin A, Crytosporidium antigen, Giardia Antigen were all negative Assessment/Plan Assessment: Mrs. Zamarripa is a 67 yo female with a past medical history of HTN, hyperlipidemia, incarcerated umblilical hernia and colostomy, kidney stones, depression and diabetes presenting for 3-4 days of LLQ abd pain. Symptoms are improved and pain level is currently 0/10 however diarrhea is still present. Cultures for C. Diff toxin A, Crytosporidium antigen, Giardia Antigen were all negative. According to the urologist, since the patient has a soft tissue abnormal region distal to the stone on abd. CT it is recommened that she have shock wave lithotripsy (ESWL) sandwich therapy with the rigid and flexible ureteroscopy (URS) outpatient. Plan: 1. LLQ abdominal pain: Patient had 3-4 days of intermittent sharp abd. pain. Two days ago patient presented with 1 episode of emisis and nausea. She was also taking 250mg IBprofene 4 per day. This may lead to a potential GI ulcer. However the stool through the ostomy appeared green and had no blood or melena indicating gastroenteritis. -Improved pain and decreased diarrhea so discharge today 2. Right renal stone: She has a right staghorn calculus. She has recieved treatment for this on the outpatient basis however she has not followed treatment plan. Dr. Jeter suggests a ESWL sandwich therapy with the URS outpt. 3. Acute kidney injury and electrolyte abnormality: normal today so discontinue fluids. 5. Chronic health conditions: HTN, hyperlipidemia, incarcerated umblilical hernia and colostomy, kidney stones, depression, diabetes, depression -Continue citalopram 10 mg by mouth daily -asprin buffer 81mg -insulin aspart 6. DVT prophylaxis -continue witHeparin 5000 units Q8h sc (DISCONTINUE DUE TO DISCHARGE) 7. Code status Full code -asprin buffer 81mg -insulin aspart 6. DVT prophylaxis -continue with Heparin 5000 units Q8h sc 7. Code status Full code
--- NOTE | 2017-05-24 08:19 | PN- Housestaff ---
See Addendum Subjective Follow-up For: gastroenteritis Subjective: No overnight events. Shei s feeling much improved today. No pain, nausea, or headache. She says her output was brown and thicker now. She is feeling ready to go home. Review of Systems Constitutional: Reports: no symptoms. EENTM: Reports: no symptoms. Cardiovascular: Reports: no symptoms. Respiratory: Reports: no symptoms. Gastrointestinal: Reports: no symptoms. Genitourinary: Reports: no symptoms. Musculoskeletal: Reports: no symptoms. Skin: Reports: no symptoms. Neurological/Psychological: Reports: no symptoms. Hematologic/Endocrine: Reports: no symptoms. Immunologic/Allergic: Reports: no symptoms. Objective Last 24 Hrs of Vital Signs/I&O Vital Signs Date Time Temp Pulse Resp B/P B/P Pulse O2 O2 Flow FiO2 Mean Ox Delivery Rate 05/24 613 97.6 80 20 123/70 97 05/23 2206 98.5 92 20 116/66 96 05/23 1407 98.3 90 20 124/60 98 Room Air Intake & Output 05/24 1600 05/24 0800 05/24 0000 Intake Total 550 Output Total 1000 1450 Balance -1000 -900 Intake, IV 300 Intake, Oral 250 Output, Stool 300 1000 Output, Urine 700 450 Physical Exam General Appearance: Alert, Oriented X3, Cooperative, No Acute Distress Cardiovascular: Regular Rate, Normal S1, Normal S2 Lungs: Clear to Auscultation Abdomen: No Tenderness, Ostomy with green liquid. Current Medications: Current Medications Sig/Debby Start time Last Medication Dose Route Stop Time Status Admin Acetaminophen 650 MG Q6 PRN 05/21 2030 AC 05/23 PO 2115 Aspirin Buffered 81 MG DAILY 05/22 1000 AC 05/23 PO 1010 Citalopram 10 MG DAILY 05/21 2230 AC 05/23 Hydrobromide PO 1010 Dextrose/Sodium 1,000 ML Q10H 05/22 1015 DC 05/23 Chloride IV 0519 Heparin Sodium 5,000 UNIT Q8 05/21 220 AC 05/24 (Porcine) SC 0525 Insulin Aspart 0 TIDAC 05/22 0800 AC 05/22 SC 1706 Morphine Sulfate 2 MG Q4P PRN 05/21 2030 AC 05/22 IV 1612 Ondansetron HCl 4 MG Q6P PRN 05/21 2045 AC IV Oxycodone HCl 5 MG Q6P PRN 05/21 2030 AC 05/22 PO 1103 Sodium Chloride 1,000 ML Q13H 05/23 1045 DC 05/23 IV 05/24 1244 1108 Last 24 Hrs of Lab/Kartik Results Last 24 Hrs of Labs/Mics: Laboratory Tests 05/24/17 0647: Sodium Pending, Potassium Pending, Chloride Pending, Carbon Dioxide Pending, Anion Gap Pending, BUN Pending, Creatinine Pending, BUN/Creatinine Ratio Pending , CBC w Diff Pending, WBC Pending, RBC Pending, Hgb Pending, Hct Pending, MCV Pending, MCH Pending, RDW Pending, Plt Count Pending, MPV Pending, PUBS MCHC Pending Microbiology 05/23 1308 STOOL: Clostridium difficile Toxin A & B - CAN Cancelled: Cancelled via OE: Per MD Decision Assessment/Plan Assessment: The patient is 67 yo F with a pmx of hypertension, hyperlipidemia, incarcerated umbilical hernia and colostomy, kidney stones, depression, and diabetes presenting with 3-4 days of acute onset, sharp, intermittent and remaining abd pain. 05/21 CT abdomen: Large anterior abdominal wall hernia without obstruction or vascular compromise, diverticulosis, residual contrast and stool in rectum, staghorn calculus right kidney without hydronephrosis, questionable inflammatory versus neoplastic thickening just distal calculus at the ureteropelvic junction/ proximal ureter #Abdominal pain and vomiting: Likely gastroenteritis. Cultures have been negative. She continues to be afebrile. Her pain has resolved and her appetite is good. She says she had thick brown stool this morning. However when I saw her, there was clean liquid in the bag. This may be just a mild viral gastroenteritis. If she continues to improve she can likely go home today. -Zofran 4 mg IV every 6 hours when necessary nausea and vomiting -Pain scale: Acetaminophen 650 mg by mouth every 6 hours for pain scale 1-3, oxycodone 5 mg by mouth every 6 hours for pain scale 4-6,morphine 2mg iv mg by mouth every 6 hours for pain scale 7-10 -Diabetic diet -Outpatient follow-up with urology for staghorn calculus and she may need ESWL sandwich therapy. #GHAZAL: Resolved. Creatinine is 1.7 on arrival. Today is 1.1 with fluid resuscitation. -Continue fluids as above -Monitor BMP #Electrolyte abnormality: Resolved. #Microcytic anemia: Iron studies are normal. -Continue to monitor #chronic medical issues: Depression -Continue citalopram 10 mg by mouth daily, aspirin DVT prophylaxis -Heparin Full code Problem List: 1. Gastroenteritis Pain Ratin Pain Location: no pain Pain Goal: Remain pain free Pain Plan: see a/p Tomorrow's Labs & Rationales: none
[2017-05-24 08:28] LABS: ABSOLUTE BASOPHIL COUNT 0 /CUMM (0.0-0.2); ABSOLUTE EOSINOPHIL COUNT 0.3 /CUMM (0.0-0.7); ABSOLUTE GRANULOCYTE CT 3.9 /CUMM (1.4-6.5); ABSOLUTE LYMPH COUNT 0.9 /CUMM (1.2-3.4); ABSOLUTE MONOCYTE COUNT 0.6 /CUMM (0.10-0.60); BASOPHIL % 0.5 % (0.0-2.0); EOSINOPHIL % 5.7 % (0-5); GRANULOCYTE % 67.5 % (42.2-75.2); HEMATOCRIT 34.1 % (37-47); MEAN CORPUSCULAR HGB 26.1 PG (27.0-31.0); MEAN CORPUSCULAR VOLUME 79.2 FL (81.0-99.0); PLATELET COUNT 251 /CUMM (130-400); RBC DISTRIBUTION WIDTH 16.5 % (11.5-14.5); WHITE BLOOD CELL COUNT 5.8 /CUMM (4.8-10.8)
--- NOTE | 2017-05-24 10:48 | Patient Discharge Instructions ---
Discharge Instructions General Discharge Information You were seen/treated for: Viral gastroenteritis Watch for these problems: Fevers, chills, nausea Special Instructions: Please follow up with your PCP within 1-2 weeks after discharge. Please follow up with Dr Jeter in 2 weeks after disharge Diet Recommended Diet: Diabetic Activity Activity Self Limited: Yes Acute Coronary Syndrome Inclusion Criteria At DC or during hospital stay patient has or had the following: ACS DIAGNOSIS No Discharge Core Measures Meds if any: Prescribed or Continued at Discharge Meds if any: NOT Prescribed or Continued at Discharge Congestive Heart Failure Inclusion Criteria At DC or during hospital stay patient has or had the following: CHF DIAGNOSIS No Discharge Core Measures Meds if any: Prescribed or Continued at Discharge Meds if any: NOT Prescribed or Continued at Discharge Cerebrovascular accident Inclusion Criteria At DC or during hospital stay patient has or had the following: CVA/TIA Diagnosis No Discharge Core Measures Meds if any: Prescribed or Continued at Discharge Meds if any: NOT Prescribed or Continued at Discharge Venous thromboembolism Inclusion Criteria VTE Diagnosis No VTE Type NONE VTE Confirmed by (Test) NONE Discharge Core Measures - Per Current guidelines, there needs to be overlap - treatment for the first 5 days of Warfarin therapy. - If discharged on Warfarin prior to 5 days of - overlap therapy, the patient will need to be - assessed for post discharge needs including - *Post discharge parental anticoagulation - *Warfarin and/or parental anticoagulation education - *Follow up date to check INR post discharge At least 5 days overlap therapy as Inpatient No Meds if any: Prescribed or Continued at Discharge Note: Overlap Therapy is Warfarin and Anticoagulant Meds if any: NOT Prescribed or Continued at Discharge
== END 2017-05-24 14:50 | DRG 683 ==
LOC: ERH 14:22 → ERHI 17:58 → 2NB 17:58 → ENRESERV 19:32 → ENTRNSPT 20:27 → 2NB 20:45 → CMPTRNSPT 21:06 → 2NB 05-22 06:37 → ENPENDDIS 05-24 10:50 → 2NB 05-24 14:50
PROVIDERS: Internal Medicine; Physician Assistant Medical; Student in an Organized Health Care Education/Training Program; ADMIT Internal Medicine
DX: N17.9 Acute kidney failure, unspecified (principal); E87.2 Acidosis; N39.0 Urinary tract infection, site not specified; E87.1 Hypo-osmolality and hyponatremia; E86.0 Dehydration; E66.9 Obesity, unspecified; Z68.37 Body mass index [BMI] 37.0-37.9, adult; E78.5 Hyperlipidemia, unspecified; I10 Essential (primary) hypertension; I35.0 Nonrheumatic aortic (valve) stenosis; Z93.3 Colostomy status; F32.9 Major depressive disorder, single episode, unspecified; E86.1 Hypovolemia; N20.0 Calculus of kidney; I27.2 Other secondary pulmonary hypertension; K42.9 Umbilical hernia without obstruction or gangrene; A08.4 Viral intestinal infection, unspecified; K57.90 Diverticulosis of intestine, part unspecified, without perforation or abscess without bleeding; E87.5 Hyperkalemia
CPT/HCPCS: 2NBSP; 36415; 74176; 81001; 82436; 87040; 87086; 87328; 87329; 96361; 96374; 96375; J1644; J2405; J7042; J7120

== ENCOUNTER 2017-11-23 10:22 | Inpatient (IN) | payer OTHER ==
[~2017-11-23] VITALS: Ht 160 cm; Wt 99.8 kg
[~2017-11-23 10:22] MED LIST changes: +AMLODIPINE BESY10 M1 PO; +ASPIRIN EC81 M1 PO; +CALCIUM600 M3 PO; +CITALOPRAM HBR10 MG PO; +FISH OIL 1,001000 MG PO; +LISINOPRIL5 M1 PO; +LOVASTATIN40 M1 PO; +METFORMIN HCL1000 M1 PO; +METOPROLOL TART25 M1 PO; +VITAMIN D2000 UNI1 PO
--- NOTE | 2017-11-23 10:46 | ED GI/GU/ABDOMINAL COMPLAINT ---
History of Present Illness General Chief Complaint: Nausea, Vomiting, Diarrhea Stated Complaint: N/V/D Source: patient Exam Limitations: no limitations Vital Signs & Intake/Output Vital Signs & Intake/Output Vital Signs Date Time Temp Pulse Resp B/P B/P Pulse O2 O2 Flow FiO2 Mean Ox Delivery Rate 11/24 0600 97.0 70 20 104/60 99 Room Air Room Air 11/23 2354 98.4 75 20 93/53 99 Room Air 11/23 1530 97.4 84 18 108/58 100 Room Air Room Air 11/23 1422 103/60 ED Intake and Output 11/24 0000 11/23 1200 Intake Total 800 1000 Output Total 1275 Balance -475 1000 Intake, IV 1000 Intake, Oral 800 Output, Stool 150 Output, Urine 1125 Patient 220 lb 220 lb Weight Weight Reported by Patient Reported by Patient Measurement Method Allergies Coded Allergies: NO KNOWN ALLERGIES (05/07/13) Reconcile Medications Amlodipine Besylate 10 MG TABLET 1 TAB PO DAILY HEART/BP (Reported) Aspirin (Ecotrin*) 81 MG TABLET.DR 1 TAB PO DAILY HEART/BLOOD (Reported) Calcium (Elemental-Fr Calcarb) (Calcium) 600 MG CALCIUM (1,500 MG) TABLET 1 TAB PO DAILY SUPPLEMENT (Reported) Cholecalciferol (Vitamin D3) (Vitamin D) 2,000 UNIT TABLET 1 TAB PO DAILY SUPPLEMENT (Reported) Citalopram Hydrobromide (Citalopram HBr) 10 MG TABLET 1 TAB PO DAILY MENTAL HEALTH (Reported) Ferrous Sulfate 325 MG (65 MG IRON) TABLET 1 TAB PO DAILY SUPPLEMENT ( Reported) Lisinopril 5 MG TABLET 1 TAB PO DAILY BP (Reported) Lovastatin 40 MG TABLET 1 TAB PO DAILY CHOLESTEROL (Reported) with food Metformin HCl 1,000 MG TABLET 1 TAB PO BID DM (Reported) Metoprolol Tartrate 25 MG TABLET 1 TAB PO BID HEART/BP (Reported) Addison-3/Dha/Epa/Fish Oil (Fish Oil 1,000 MG Softgel) (Unknown Strength) CAPSULE 1 TAB PO DAILY SUPPLEMENT (Reported) Triage Note: PT TO ED C/O N/V SINCE LAST NIGHT. HAS NOT BEEN FEELING GOOD FOR ABOUT 1 WEEK. C/O SLIGHT HEADACHE, POOR PO INTAKE. PT HAS COLOSTOMY BAG SINCE 2006. Triage Nurses Notes Reviewed? yes ? n Is pt currently ? No Onset: Abrupt Duration: week(s): (1), constant Timing: recent history Quality/Severity: aching, cramping Severity Numbers: 6 Location: no abdominal pain Radiation: no radiation Activities at Onset: none Prior Abdominal Problems: none No Modifying Factors: none Associated Symptoms: denies HPI: 67 Year old female hypertension, hyperlipidemia, incarcerated umbilical hernia and colostomy in 2006, kidney stones, depression, and diabetes presents to the ER for evaluation with a one-week history of unable to tolerate by mouth secondary to nausea and vomiting. She also reports a nonproductive cough. No fever no chills. No sick contacts or chest pain no abdominal pain. She does report decreased output in her colostomy secondary to not eating or drinking. On arrival the patient presents hypotensive however denies dizziness or lightheadedness. she denies abdominal pain (Diego Armijo) Past History Travel History Traveled to [place] past 21 day No Medical History Any Pertinent Medical History? see below for history Neurological: NONE EENT: NONE Cardiovascular: hypertension, hyperlipidemia, aortic stenosis Respiratory: NONE Gastrointestinal: umbilical hernia Hepatic: NONE Renal: KIDNEY STONES Musculoskeletal: NONE Psychiatric: depression Endocrine: diabetes Blood Disorders: NONE Cancer(s): NONE ROLL HAULER/Reproductive: NONE History of MRSA: No History of VRE: No History of CDIFF: No Surgical History Surgical History: COLOSTOMY Psychosocial History Who do you live with Brother Services at Home None What is your primary language Chinese Tobacco Use: Quit >30 days ago ETOH Use: denies use Illicit Drug Use: denies illicit drug use Family History Hx Contributory? No (Diego Armijo) Review of Systems Review of Systems Constitutional: Reports: see HPI. Comments Review of systems: See HPI, All other systems negative. Constitutional, no chills no fever, no malaise HEENT: no sore throat no congestion Cardiovascular: No chest pain Skin: no rashes, no change in skin Respiratory: No dyspnea no cough no sputum GI: see hpi Muscle skeletal: No joint pain, no back pain Neurologic: , no headache Heme/endocrine: No bruising (Diego Armijo) Physical Exam Physical Exam General Appearance: well developed/nourished, alert, awake Gastrointestinal: soft Comments: Well-developed well-nourished person in no acute distress HEENT: Normal EENT exam; PERRL, EOMI, HEAD is atraumatic. moist mucous membranes. Neck: Supple, normal range of motion Back: Nontender, no CVA tenderness. Full range of motion Cardiovascular: Regular rate and rhythms no murmurs Respiratory: No respiratory distress. Patient speaking in full complete sentences. Breath sounds clear to auscultation bilaterally: NO W/R/R Abdomen: Soft, nontender colostomy noted to the right lower quadrant with stool noted in back there is no surrounding erythema, nondistended, no appreciable organomegaly. Normal bowel sounds. No rebound/guarding, No appreciable enlargement of the abdominal aorta, No ascites. Extremity: No edema, full range of motion of extremities Neuro: Alert oriented x3, motor sensory normal, There were no obvious focal neurologic abnormalities. Skin: No appreciable rash on exposed skin, skin is warm and dry. Psych: Mood and affect is normal, memory and judgment is normal. Core Measures ACS in differential dx? Yes Sepsis Present: No Sepsis Focused Exam Completed? No (Randall WORLEY,Diego) Progress Differential Diagnosis: appendicitis, biliary colic, bowel obstruction, colon cancer, cholecystitis, diverticulitis, gastritis, hepatitis, hernia, inflamm bowel dis, pancreatitis, PUD/GERD, perforated viscous, SBO, influenza, pna, dehydration, electrolyte abnormality Plan of Care: Orders Procedure Date/time Status CBC WITHOUT DIFFERENTIAL 11/25 0600 Active BASIC ELECTROLYTES PLUS BUN&CR 11/25 0600 Active Regular Diet 11/24 D Active BASIC ELECTROLYTES PLUS BUN&CR 11/24 1800 Active Turn and Reposition 11/24 1246 Active Skin Integrity Protocol 11/24 1246 Active Skin/Pressure Ulcer Assess (Sk 11/24 1246 Active BASIC ELECTROLYTES PLUS BUN&CR 11/24 0100 Complete Full Liquid Diet 11/23 D Complete BASIC ELECTROLYTES PLUS BUN&CR 11/23 2100 Complete BASIC ELECTROLYTES PLUS BUN&CR 11/23 1900 Complete Teach/Educate 11/23 1556 Active Pain Treatment and Response 11/23 1556 Active Nutritional Intake, Monitor 11/23 1556 Active Isolation 11/23 1556 Active Patient Care Conference 11/23 1556 Active Activity/Ambulation 11/23 1556 Active URINE OSMOLALITY 11/23 1230 Complete SERUM OSMOLALITY 11/23 1056 Complete Lab Add-on Test 11/23 UNK Active Current Medications Sig/Debby Start time Last Medication Dose Stop Time Status Admin Atorvastatin Calcium 10 MG 1700 11/23 1700 AC 11/23 (Lipitor) 1830 Insulin Aspart 0 TIDAC 01/13 1700 AC (NovoLOG) Ondansetron HCl 4 MG Q6P PRN 11/23 1430 AC (Zofran) Citalopram 10 MG DAILY 11/23 1339 AC 11/24 Hydrobromide 0902 (Celexa) Laboratory Tests 11/24/17 0725: Anion Gap 14, Estimated GFR 14 L, BUN/Creatinine Ratio 28.4 H, CBC w Diff NO MAN DIFF REQ, RBC 3.50 L, MCV 79.8 L, MCH 27.2, RDW 16.0 H, MPV 8.5, Gran % 77.6 H, Lymphocytes % 10.6 L, Monocytes % 7.7, Eosinophils % 3.3, Basophils % 0.8, Absolute Granulocytes 4.6, Absolute Lymphocytes 0.6 L, Absolute Monocytes 0.5, Absolute Eosinophils 0.2, Absolute Basophils 0, PUBS MCHC 34.1 11/24/17 0110: Anion Gap 15, Estimated GFR 13 L, BUN/Creatinine Ratio 26.6 H 11/23/17 2100: Anion Gap 16, Estimated GFR 13 L, BUN/Creatinine Ratio 26.9 H 11/23/17 1830: Anion Gap 17 H, Estimated GFR 12 L, BUN/Creatinine Ratio 25.8 H 11/23/17 1435: Anion Gap 15, Estimated GFR 11 L, BUN/Creatinine Ratio 26.3 H Microbiology 11/23 1452 BLOOD: Blood Culture - RES 11/23 1440 BLOOD: Blood Culture - RES Labs ordered old records reviewed IV fluids ordered patient denies nausea there is no pain. Case discussed with Dr. Merida who evaluated the patient agrees with plan. On repeat evaluation Patient reports to feeling hungry I discussed with them at length however given her elevated white blood cell count patient has no pain that a CAT scan will be ordered which there are in agreement with 1200 patient reports nausea returning, Phenergan 25 IV ordered IV fluids are running 1225 skull to the patient's room she stating that she is having blurry vision and feeling tired which I stated could be a side effect of the medication her mother states she's had similar reactions to morphine in the past 1300 and discussed with the patient her CAT scan findings she denies any pain in her abdomen back or chest. IV fluids running case d/w dr krishnan will admit to gen med, bp respondnig with fluids, pt mentating well, no need for icu at this time per him,, when asked regarding k of 5.6, advised iv fluids no calcium or kayexelate at this itme Diagnostic Imaging: Viewed by Me: CT Scan. Discussed w/RAD: CT Scan. Radiology Impression: PATIENT: LETY WALL PRESENT AGE: 67 PATIENT ACCOUNT NO: [id number] : 48 LOCATION: ER ORDERING PHYSICIAN: Diego WORLEY SERVICE DATE: 11/23/17 EXAM TYPE: CAT - CT ABD & PELVIS W/O IV CONTRAS EXAMINATION: CT ABDOMEN AND PELVIS WITHOUT CONTRAST CLINICAL INFORMATION: Nausea, vomiting, elevated lipase. Possible pancreatitis. COMPARISON: CT abdomen and pelvis 05/21/2017. TECHNIQUE: Multidetector volumetric imaging was performed from the superior aspect of the liver through the pubic symphysis. Sagittal and coronal reformatted images were obtained on the technologist's workstation. DLP: 1312 mGy-cm FINDINGS: LUNG BASES: There is no airspace consolidation or effusion. Stable fine linear scarring left anterolateral base. LIVER, GALLBLADDER, AND BILIARY TREE: Smooth in contour and homogeneous. No focal hepatic parenchymal lesion or intrahepatic biliary ductal dilatation. The gallbladder shows no dilatation or wall thickening or pericholecystic inflammatory changes. There are subtle dependent densities within the lumen likely gravel like calculi. Common duct is stable at 9-10 mm. No visible ductal calculus. PANCREAS: The pancreas is normal in size and contour and attenuation. There is no pancreatic ductal distention or peripancreatic inflammatory changes. SPLEEN: Unremarkable. ADRENAL GLANDS: Unremarkable. KIDNEYS AND URETERS: Left kidney has punctate nonobstructing lower pole calculus under 3 mm. No hydronephrosis or significant stranding. Right kidney again has large staghorn in the pelvis at least 2.1 x 3.3 cm, 460 HU attenuation, and 15 cm from the flank. The staghorn extends into the right upper and lower pole infundibula. There are some calculi lower pole. There is no perinephric stranding or interval hydronephrosis. No distal ureteral calculus. BLADDER: Unremarkable. GASTROINTESTINAL TRACT/ABDOMINAL WALL: There appears to have been prior right and transverse colectomy with right lower quadrant ileostomy. Large fat-containing hernia again seen at the anterior right lower quadrant at the ostomy, again containing multiple loops of small bowel and portion of lower left colon. There are left colonic diverticula without inflammatory changes. No bowel strangulation or airspace ascites or fluid collection. LYMPH NODES: No lymphadenopathy. VASCULAR: Unremarkable on noncontrast exam. PELVIC VISCERA: Unremarkable. OSSEOUS STRUCTURES: No acute bony abnormality. IMPRESSION: 1. No acute inflammatory changes abdomen or pelvis. 2. Probable small gravel like gallstones. No gallbladder wall thickening or intrahepatic ductal dilatation. Fullness extrahepatic ducts stable. 3. Pancreas unremarkable. No duct dilatation or peripancreatic inflammatory changes. 4. Right staghorn renal calculus. No interval hydronephrosis or perinephric stranding. Punctate nonobstructing left renal calculus. 5. Large fat and bowel containing hernia at right lower quadrant ostomy. No bowel obstruction or wall thickening. DICTATED BY: Ruben Chavez MD DATE/TIME DICTATED:11/23/171239 BARREL BRIDGE ASSEMBLER:[place] DATE/TIME TRANSCRIBED:11/23/171239 CONFIDENTIAL, DO NOT COPY WITHOUT APPROPRIATE AUTHORIZATION. <Electronically signed in Other Vendor System> SIGNED BY: Ruben Chavez MD 11/23/17 1303 Initial ED EKG: normal intervals, normal p-waves, normal QRS complex, normal sinus rhythm Prior EKG: unchanged Rhythm Strip: normal sinus rhythm (Diego Armijo) Departure Departure Time of Disposition: 3 Disposition: STILL A PATIENT Condition: Stable Clinical Impression Primary Impression: GHAZAL (acute kidney injury) Secondary Impressions: Gallstone Hyperkalemia Hyponatremia Kidney stone Pancreatitis Qualifiers: Chronicity: acute Additional Instructions: Zofran for nausea. Imodium for diarrhea bland diet clear liquids advance as tolerated. Follow-up with your primary care physician return with any concerns. Departure Forms: Customer Survey General Discharge Information Admission Note Spoke With: Ronna Krishnan MD Documentation of Exam: Documentation of any treatments & extenuating circumstances including Concerns Regarding Discharge (functional status, medication knowledge or non-compliance, living conditions, etc.) that warrant an admission rather than observation: IV FLUIDS, RENAL CONSULT, TREND LABS AND ELECTROLYTES, PREMATURE DISCHARGE WOULD BE MEDICALLY HARMFUL (Diego Armijo) PA/ASSOCIATE ACCOUNT DIRECTOR Co-Sign Statement Statement: ED Attending supervision documentation- [X] I saw and evaluated the patient. I have also reviewed all the pertinent lab results and diagnostic results. I agree with the findings and the plan of care as documented in the PA's/ASSOCIATE ACCOUNT DIRECTOR's documentation. [X] I have reviewed the ED Record and agree with the PA's/ASSOCIATE ACCOUNT DIRECTOR's documentation. [] Additions or exceptions (if any) to the PAs/ASSOCIATE ACCOUNT DIRECTOR's note and plan are summarized below: [] (Magnolia NAJERA,Britney) Documentation of any treatments & extenuating circumstances including Concerns Regarding Discharge (functional status, medication knowledge or non-compliance, living conditions, etc.) that warrant an admission rather than observation: IV FLUIDS, RENAL CONSULT, TREND LABS AND ELECTROLYTES, PREMATURE DISCHARGE WOULD BE MEDICALLY HARMFUL (Diego Armijo) PA/ASSOCIATE ACCOUNT DIRECTOR Co-Sign Statement Statement: ED Attending supervision documentation- [X] I saw and evaluated the patient. I have also reviewed all the pertinent lab results and diagnostic results. I agree with the findings and the plan of care as documented in the PA's/ASSOCIATE ACCOUNT DIRECTOR's documentation. [X] I have reviewed the ED Record and agree with the PA's/ASSOCIATE ACCOUNT DIRECTOR's documentation. [] Additions or exceptions (if any) to the PAs/ASSOCIATE ACCOUNT DIRECTOR's note and plan are summarized below: [] (Britney Merida MD)
[2017-11-23 11:03] LABS: ABSOLUTE BASOPHIL COUNT 0 /CUMM (0.0-0.2); ABSOLUTE EOSINOPHIL COUNT 0.2 /CUMM (0.0-0.7); ABSOLUTE GRANULOCYTE CT 7.1 /CUMM (1.4-6.5); ABSOLUTE LYMPH COUNT 0.9 /CUMM (1.2-3.4); ABSOLUTE MONOCYTE COUNT 0.6 /CUMM (0.10-0.60); BASOPHIL % 0.3 % (0.0-2.0); EOSINOPHIL % 2.5 % (0-5); GRANULOCYTE % 79.6 % (42.2-75.2); HEMATOCRIT 33.5 % (37-47); MEAN CORPUSCULAR HGB 26.6 PG (27.0-31.0); MEAN CORPUSCULAR HGB CONC 33.5 G/DL (33.0-37.0); MEAN CORPUSCULAR VOLUME 79.3 FL (81.0-99.0); MEAN PLATELET VOLUME 7.9 FL (7.4-10.4); PLATELET COUNT 316 /CUMM (130-400); RBC DISTRIBUTION WIDTH 15.8 % (11.5-14.5); RED BLOOD CELL CT 4.23 /CUMM (4.20-5.40); WHITE BLOOD CELL COUNT 8.9 /CUMM (4.8-10.8)
--- NOTE | 2017-11-23 11:21 | RADIOLOGY REPORT ---
EXAMINATION: XR PORTABLE CHEST CLINICAL INFORMATION: Cough. COMPARISON: 07/21/14. TECHNIQUE: Portable frontal view of the chest was obtained. FINDINGS: No significant abnormality is noted involving the heart, lungs, mediastinum, bony thorax or soft tissues. No focal consolidation, pulmonary edema or other acute abnormality is seen. IMPRESSION: Unremarkable examination.
[2017-11-23] MEDS ORDERED: FERROUS SULFAT325 M3 PO (12:47)
--- NOTE | 2017-11-23 13:03 | CT SCAN REPORT ---
EXAMINATION: CT ABDOMEN AND PELVIS WITHOUT CONTRAST CLINICAL INFORMATION: Nausea, vomiting, elevated lipase. Possible pancreatitis. COMPARISON: CT abdomen and pelvis 05/21/2017. TECHNIQUE: Multidetector volumetric imaging was performed from the superior aspect of the liver through the pubic symphysis. Sagittal and coronal reformatted images were obtained on the technologist's workstation. DLP: 1312 mGy-cm FINDINGS: LUNG BASES: There is no airspace consolidation or effusion. Stable fine linear scarring left anterolateral base. LIVER, GALLBLADDER, AND BILIARY TREE: Smooth in contour and homogeneous. No focal hepatic parenchymal lesion or intrahepatic biliary ductal dilatation. The gallbladder shows no dilatation or wall thickening or pericholecystic inflammatory changes. There are subtle dependent densities within the lumen likely gravel like calculi. Common duct is stable at 9-10 mm. No visible ductal calculus. PANCREAS: The pancreas is normal in size and contour and attenuation. There is no pancreatic ductal distention or peripancreatic inflammatory changes. SPLEEN: Unremarkable. ADRENAL GLANDS: Unremarkable. KIDNEYS AND URETERS: Left kidney has punctate nonobstructing lower pole calculus under 3 mm. No hydronephrosis or significant stranding. Right kidney again has large staghorn in the pelvis at least 2.1 x 3.3 cm, 460 HU attenuation, and 15 cm from the flank. The staghorn extends into the right upper and lower pole infundibula. There are some calculi lower pole. There is no perinephric stranding or interval hydronephrosis. No distal ureteral calculus. BLADDER: Unremarkable. GASTROINTESTINAL TRACT/ABDOMINAL WALL: There appears to have been prior right and transverse colectomy with right lower quadrant ileostomy. Large fat-containing hernia again seen at the anterior right lower quadrant at the ostomy, again containing multiple loops of small bowel and portion of lower left colon. There are left colonic diverticula without inflammatory changes. No bowel strangulation or airspace ascites or fluid collection. LYMPH NODES: No lymphadenopathy. VASCULAR: Unremarkable on noncontrast exam. PELVIC VISCERA: Unremarkable. OSSEOUS STRUCTURES: No acute bony abnormality. IMPRESSION: 1. No acute inflammatory changes abdomen or pelvis. 2. Probable small gravel like gallstones. No gallbladder wall thickening or intrahepatic ductal dilatation. Fullness extrahepatic ducts stable. 3. Pancreas unremarkable. No duct dilatation or peripancreatic inflammatory changes. 4. Right staghorn renal calculus. No interval hydronephrosis or perinephric stranding. Punctate nonobstructing left renal calculus. 5. Large fat and bowel containing hernia at right lower quadrant ostomy. No bowel obstruction or wall thickening.
--- NOTE | 2017-11-23 13:31 | History & Physical ---
Ul Jayne NAJERA,[facility] 11/23/17 8330: General Information and HPI MD Statement: I have seen and personally examined LETY WALL and documented this H&P. The patient is a 67 year old F who presented with a patient stated chief complaint of [Nausea and vomiting]. Source of Information: patient, family, old records Exam Limitations: no limitations History of Present Illness: 67-year-old obese woman with past medical history significant for hypertension, hyperlipidemia, type 2 diabetes on metformin, history of nephrolithiasis status post bilateral ureteral stents, history of cholelithiasis, history of colostomy for an incarcerated hernia 2006, past admission in [facility] in 2012 for bilateral obstructing calculi with bilateral hydronephrosis, metabolic acidosis, and hyponatremia, past admission in May 2017 with viral gastroenteritis and acute kidney injury, came to emergency department today with chief complaint of decreased by mouth intake along with nausea and vomiting for the last 1 week. According to the patient she started having these symptoms are week ago. She does not remember exact onset of her symptoms but it started with lethargy and weakness along with nausea and vomiting. For the last 1 week she has been having significantly decreased by mouth intake and was trying to have liquid diet. 3-4 episodes of nonbloody emesis every day for the last 1 week as per patient. No blood noticed in the vomitus. Also reported mildly increased frequency of stools in the colostomy bag along with change in the color of stools greenish brown. Patient did not take any recent antibiotics. She denied any significant blood in her stools. No significant abdominal pain. No fevers or chills. She did admit to nonproductive cough. This morning patient also noticed bright red blood with urination. She did not have any significant clots. Review of systems negative for any acute visual changes, chest pain, dizziness, chest pressure, shortness of breath, significant abdominal pain, dysuria or lower extremity edema. Allergies/Medications Allergies: Coded Allergies: NO KNOWN ALLERGIES (05/07/13) Home Med list Amlodipine Besylate 10 MG TABLET 1 TAB PO DAILY HEART/BP (Reported) Aspirin (Ecotrin*) 81 MG TABLET.DR 1 TAB PO DAILY HEART/BLOOD (Reported) Calcium (Elemental-Fr Calcarb) (Calcium) 600 MG CALCIUM (1,500 MG) TABLET 1 TAB PO DAILY SUPPLEMENT (Reported) Cholecalciferol (Vitamin D3) (Vitamin D) 2,000 UNIT TABLET 1 TAB PO DAILY SUPPLEMENT (Reported) Citalopram Hydrobromide (Citalopram HBr) 10 MG TABLET 1 TAB PO DAILY MENTAL HEALTH (Reported) Ferrous Sulfate 325 MG (65 MG IRON) TABLET 1 TAB PO DAILY SUPPLEMENT ( Reported) Lisinopril 5 MG TABLET 1 TAB PO DAILY BP (Reported) Lovastatin 40 MG TABLET 1 TAB PO DAILY CHOLESTEROL (Reported) with food Metformin HCl 1,000 MG TABLET 1 TAB PO BID DM (Reported) Metoprolol Tartrate 25 MG TABLET 1 TAB PO BID HEART/BP (Reported) [place]-3/Dha/Epa/Fish Oil (Fish Oil 1,000 MG Softgel) (Unknown Strength) CAPSULE 1 TAB PO DAILY SUPPLEMENT (Reported) Compliance With Home Meds: GOOD Past History Travel History Traveled to [place] past 21 day No Medical History Neurological: NONE EENT: NONE Cardiovascular: hypertension, hyperlipidemia, aortic stenosis Respiratory: NONE Gastrointestinal: umbilical hernia Hepatic: NONE Renal: KIDNEY STONES Musculoskeletal: NONE Psychiatric: depression Endocrine: diabetes Blood Disorders: NONE Cancer(s): NONE COMMUNICATIONS STATION MANAGER/Reproductive: NONE History of MRSA: No History of VRE: No History of CDIFF: No Surgical History Surgical History: COLOSTOMY ECHO Results (as available) Date of last Echo 05/07/13 EF% 65 Past Family/Social History Family History Relations & Conditions if any FATHER FH: myocardial infarction Psychosocial History Where do you live? Home Services at Home: None Primary Language: Pashto Smoking Status: Never Smoked ETOH Use: denies use Illicit Drug Use: denies illicit drug use Functional Ability ADLs Independent: dressing, eating, toileting, bathing. Ambulation: independent Review of Systems Review of Systems Constitutional: Denies: chills, fever. Cardiovascular: Denies: chest pain, palpitations. Respiratory: Reports: cough. Denies: short of breath. GI: Reports: nausea, vomiting. Denies: abdominal pain. Genitourinary: Reports: hematuria, pain. Denies: dysuria, nocturia. All Other Systems: Reviewed and Negative Exam & Diagnostic Data Last 24 Hrs of Vital Signs/I&O Vital Signs Date Time Temp Pulse Resp B/P B/P Pulse O2 O2 Flow FiO2 Mean Ox Delivery Rate 11/23 1327 83 20 101/50 100 Room Air 11/23 1238 97.3 80 20 107/53 99 Room Air 11/23 1159 98.0 80 20 100/49 95 Room Air 11/23 1120 77 20 90/53 100 Room Air 11/23 1105 97 11/23 1035 97.4 97 20 82/50 94 Room Air Intake & Output 11/23 1600 11/23 0800 11/23 0000 Intake Total 1000 Output Total Balance 1000 Intake, IV 1000 Patient 220 lb Weight Weight Reported by Patient Measurement Method Physical Exam General Appearance Alert, Oriented X3, Cooperative, No Acute Distress Skin No Rashes HEENT Atraumatic Neck Supple Cardiovascular Regular Rate, Normal S1, Normal S2 Lungs Clear to Auscultation Abdomen Normal Bowel Sounds, Soft, Distended, right-sided colostomy bag with greenish fluid watering consistency, Neurological Normal Gait, Normal Tone, Sensation Intact Extremities No Edema Last 24 Hrs of Labs/Kartik: Laboratory Tests 11/23/17 1355: Lactic Acid Cancelled 11/23/17 1230: Urinalysis MOD H, Urine Color BLDY H, Urine Clarity CLDY H, Urine pH 6.5, Ur Specific [place] 1.015, Urine Protein >=300 H, Urine Ketones 15 H, Urine Nitrite POS H, Urine Bilirubin NEG@ICTO, Urine Urobilinogen 2.0 H, Ur Leukocyte Esterase LARGE H, Ur Microscopic SEDIMENT EXAMINED, Urine RBC PACKD H, Urine WBC > 75 H, Ur Epithelial Cells FEW, Urine Bacteria MOD H, Micro UA Comment MORE INFO: H, Urine Hemoglobin LARGE H, Urine Glucose NEG 11/23/17 1230: Ur Random Creatinine 57.5, Ur Random Sodium 19 L, Ur Random Potassium 29.5, Fraction Sodium Excret 1.3 H 11/23/17 1056: Anion Gap 21 H, Estimated GFR 9 L, BUN/Creatinine Ratio 23.9, Glucose 120 H, Lactic Acid 1.6, Calcium 9.5, Total Bilirubin 0.5, AST 16, ALT 32, Alkaline Phosphatase 66, Troponin I < 0.01, Total Protein 7.8, Albumin 4.8, Globulin 3.0, Albumin/Globulin Ratio 1.6, Lipase 5197 H, CBC w Diff NO MAN DIFF REQ, RBC 4.23 , MCV 79.3 L, MCH 26.6 L, RDW 15.8 H, MPV 7.9, Gran % 79.6 H, Lymphocytes % 10.5 L, Monocytes % 7.1, Eosinophils % 2.5, Basophils % 0.3, Absolute Granulocytes 7.1 H, Absolute Lymphocytes 0.9 L, Absolute Monocytes 0.6, Absolute Eosinophils 0.2, Absolute Basophils 0, PUBS MCHC 33.5 Microbiology 11/23 1354 LOWER RESP: Respiratory Culture - ORD 11/23 1354 LOWER RESP: Gram Stain - ORD 11/23 1335 BLOOD: Blood Culture - ORD 11/23 1335 BLOOD: Blood Culture - ORD 11/23 1230 URINE ROUT: Urine Culture - RECD 11/23 1059 NASOPHARYN: Influenza Virus A & B Rapid Smear - COMP Diagnostic Data EKG Results NSR, HR 79, No acute ST changes CXR Results No acute cardio pulmonary findings Other Results No acute inflammatory changes abdomen or pelvis. Probable small gravel like gallstones. No gallbladder wall thickening or intrahepatic ductal dilatation. Fullness extrahepatic ducts stable. Pancreas unremarkable. No duct dilatation or peripancreatic inflammatory changes. Right staghorn renal calculus. No interval hydronephrosis or perinephric stranding. Punctate nonobstructing left renal calculus. Large fat and bowel containing hernia at right lower quadrant ostomy. No bowel obstruction or wall thickening. Assessment/Plan Assessment: 67-year-old obese woman with past medical history significant for hypertension, hyperlipidemia, type 2 diabetes on metformin, history of nephrolithiasis status post bilateral ureteral stents, history of cholelithiasis, history of colostomy for an incarcerated hernia 2006, past admission in [facility] in 2012 for bilateral obstructing calculi with bilateral hydronephrosis, metabolic acidosis, and hyponatremia, past admission in May 2017 with viral gastroenteritis and acute kidney injury, came to emergency department today with chief complaint of decreased by mouth intake along with nausea and vomiting for the last 1 week Vitals in emergency department patient afebrile, no tachypnea, no tachycardia, one episode of 97, blood pressure on admission to ED 82/50, slightly improved to 101/50, oxygen saturation of 95 -100% on room air. Labs significant for leukocytosis white count of 8.9, granulocytes 79.6, no bands, hemoglobin of 11.3 and hematocrit of 33.5, at baseline, significant electrolyte abnormalities with sodium of 121, potassium of 5.6, chloride 85, anion gap increased 21, BUN 117, and creatinine 4.9, lactic acid 1.6 on admission, troponin less than 0.01 and lipase of 5197 Patient is currently admitted on general medicine so for the management of following problems Intractable nausea and vomiting Acute on chronic Hyponatremia Dehydration Acute kidney injury High lipase Hematuria Chronic staghorn calculi Intractable nausea and vomiting/ ? Acute diarrhea/electrolyte abnormalities According to the patient she has been having increased bowel movements which are liquid in consistency for the last 3-4 days along with generalized lower abdominal pain. Patient denied eating out, ordering food or any sick contacts along with any recent antibiotic use. She has not been admitted recently in any health care facility. Patient also noticed some dark liquidy stools yesterday but denies seeing any fresh red blood in the colostomy bag. Supportive care with IV fluids and Zofran for nausea. We will also replete electrolytes as necessary. Patient will be on clear liquid diet and will adjust the diet as tolerated. Monitor input and output. Repeat BEP every 4 hours. Patient does not meet criteria of sepsis, no leukocytosis or leukopenia, no fever, no tachypnea, did presented with hypotension is a suspected source of infection and urine. Restart blood pressure medications as blood pressure is improved. Acute on chronic hyponatremia Likely secondary to hypervolemic hypotonic hyponatremia secondary to dehydration in the setting of acute kidney injury. We will get serum osmolality and urine osmolality to complete the workup. We'll give IV fluids and follow-up with a BEP. Acute kidney injury Likely secondary hypovolemia leading to prerenal type of kidney injury , obstruction ruled out by recent imaging. Patient has already received IV fluids will follow-up with a renal function. Avoid NSAIDS and nephrotoxic medications. History of UTI/bilateral ureteral stents Patient does have past medical history significant for urinary tract infections in the past. We will empirically treat with antibiotics for now. With obtain the urine culture/blood culture and follow-up High lipase Likely elevated secondary to to acute on chronic diarrhea in the setting of acute kidney injury. No significant evidence of pancreatitis on imaging but differential cannot be ruled out. Patient is full code Patient is on ALPS for DVT prophylaxis Patient is on pain management Patient is on diabetic diet As Ranked By This Provider Problem List: 1. Hyperkalemia 2. Hyponatremia 3. GHAZAL (acute kidney injury) Core Measures/Misc (07/28) Acute Coronary Syndrome ACS Diagnosis: No Congestive Heart Failure Congestive Heart Failure Diagnosis No Cerebrovascular Accident CVA/TIA Diagnosis: No VTE (View Protocol) VTE Risk Factors Acute Medical Illness No Mechanical VTE Prophylaxis d/t Other No VTE Pharm Prophylaxis d/t Bleeding (Active) Sepsis (View protocol) Sepsis Present: No Ronna Alcaraz MD 11/23/17 1543: Attending MD Review Statement Attending Statement Attending MD Statement: examined this patient, discuss w/resident/PA/MANAGER QA, agreed w/resident/PA/MANAGER QA, reviewed EMR data (avail) Attending Assessment/Plan: 67F PMH bilateral obstructing ureteral calculus S/P stent, obesity, moderate to severe areas, pulmonary hypertension, 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 On admission she was hemodynamically stable but with dehydration, GHAZAL, and hypnatremia. CT abdomen shows ureteral stagorn calculus with ureteral thickening. Sodium 121 on admission, K 5.6, creatinine 4.8. Today the patient feels much better, still not back to her baseline. She was able to tolerate a clear liquid diet this morning. She denies abdominal pain or nausea. Ostomy output is clear, green, and copious. 1. Acute gastroenteritis 2. Hypovolemic hyponatremia 3. GHAZAL 4. Intractable nausea and vomiting 5. Staghorn calculus 6. Ureteral thickening 7. Hyperkalemia Plan - Continue on general medicine - Monitor BEP q4-6h to ensure slow correction of sodium, stop fluids if correcting too quickly, if overcorrection, may give D5W - Monitor off antibiotics - Gentle hydration - Advance diet to full liquid - Monitor renal function - If tolerates full liquid then advance to regular diet tomorrow morning - Continue home medications - DVT PPx
[2017-11-23 15:30] VITALS: BP 108/58
[2017-11-23 23:54] VITALS: BP 93/53
[2017-11-24 06:00] VITALS: BP 104/60
[2017-11-24 08:27] LABS: ABSOLUTE BASOPHIL COUNT 0 /CUMM (0.0-0.2); ABSOLUTE EOSINOPHIL COUNT 0.2 /CUMM (0.0-0.7); ABSOLUTE GRANULOCYTE CT 4.6 /CUMM (1.4-6.5); ABSOLUTE LYMPH COUNT 0.6 /CUMM (1.2-3.4); ABSOLUTE MONOCYTE COUNT 0.5 /CUMM (0.10-0.60); BASOPHIL % 0.8 % (0.0-2.0); EOSINOPHIL % 3.3 % (0-5); GRANULOCYTE % 77.6 % (42.2-75.2); MEAN CORPUSCULAR HGB 27.2 PG (27.0-31.0); MEAN CORPUSCULAR HGB CONC 34.1 G/DL (33.0-37.0); MEAN CORPUSCULAR VOLUME 79.8 FL (81.0-99.0); MEAN PLATELET VOLUME 8.5 FL (7.4-10.4); PLATELET COUNT 209 /CUMM (130-400)
[2017-11-24 08:28] VITALS: BP 104/70
--- NOTE | 2017-11-24 08:46 | PN- Housestaff ---
Karlee NAJERA,Nicole 11/24/17 0846: Subjective Follow-up For: Intractable nausea and vomiting (improvd) Acute on chronic Hyponatremia-improved Dehydration Acute kidney injury High lipase Hematuria Chronic staghorn calculi Subjective: Patient is seen and examined at bedside, she continues to complain of burning micturition, she denies any fever, chills, nausea or vomiting. Her urine culture was negative Review of Systems Constitutional: Reports: diaphoresis, malaise, weakness. Denies: chills, fever. Cardiovascular: Denies: no symptoms. Respiratory: Denies: no symptoms. Gastrointestinal: Reports: see HPI. Genitourinary: Reports: dysuria. Objective Last 24 Hrs of Vital Signs/I&O Vital Signs Date Time Temp Pulse Resp B/P B/P Pulse O2 O2 Flow FiO2 Mean Ox Delivery Rate 11/24 0600 97.0 70 20 104/60 99 Room Air Room Air 11/23 2354 98.4 75 20 93/53 99 Room Air 11/23 1530 97.4 84 18 108/58 100 Room Air Room Air 11/23 1422 103/60 Intake & Output 11/24 1600 11/24 0800 11/24 0000 Intake Total 200 800 Output Total 750 1275 Balance -550 -475 Intake, Oral 200 800 Output, Stool 150 150 Output, Urine 600 1125 Patient 220 lb Weight Weight Reported by Patient Measurement Method Physical Exam General Appearance: Alert, Oriented X3, Cooperative, No Acute Distress HEENT: Atraumatic, PERRLA, EOMI, Mucous Membr. moist/pink Neck: Supple, No JVD Cardiovascular: Regular Rate, Normal S1, Normal S2, No Murmurs Lungs: Clear to Auscultation Abdomen: Normal Bowel Sounds, Soft, No Tenderness Neurological: Normal Speech Extremities: No Clubbing, No Cyanosis, No Edema Assessment/Plan Assessment: Patient is seen and examined at bedside, afebrile saturating at 96 on 2 L nasal cannula ,she reports mild improvement of her shortness of breath on nebulizer treatment. Still endorses cough and expectoration. Denies fever, chills, nausea, vomiting, diarrhea or constipation Intractable nausea and vomiting Acute on chronic Hyponatremia Dehydration Acute kidney injury High lipase Hematuria Chronic staghorn calculi Intractable nausea and vomiting/ ? Acute diarrhea/electrolyte abnormalities Improved -Frequent episodes of diarrhea noticed in the colostomy bag - Denies recent antibiotic use or [facility] -Continue Supportive care with IV fluids -Zofran for nausea. -We will also replete electrolytes as necessary. Advanced to regular diet. Monitor input and output. BEB mitor Restart blood pressure medications as blood pressure is improved. Acute on chronic hyponatremia improved Likely secondary to hypervolemic hypotonic hyponatremia secondary to dehydration in the setting of acute kidney injury. Borderline increased serum osmolality low urinary sodium and osmolarity We'll give IV fluids and follow-up with a BEP. Acute kidney injury Likely secondary hypovolemia leading to prerenal type of kidney injury obstruction ruled out by recent imaging. Patient has already received IV fluids will follow-up with a renal function. Avoid NSAIDS and nephrotoxic medications. Follow up on nephrology recommendation History of UTI/bilateral ureteral stents Urine culture was negative, would hold off antibiotics for now High lipase Likely elevated secondary to to acute on chronic diarrhea in the setting of acute kidney injury. No significant evidence of pancreatitis on imaging but differential cannot be ruled out. full code ALPS for DVT prophylaxis diabetic diet Problem List: 1. Gastroenteritis 2. Hyponatremia Pain Ratin Pain Location: n/a Pain Goal: Remain pain free Pain Plan: pathway Tomorrow's Labs & Rationales: cbc bep DVT/Prophylaxis: mechanical Ronna Alcaraz MD 11/24/17 1603: Attending MD Review Statement Attending Statement Attending MD Statement: examined this patient, discuss w/resident/PA/CLINICAL UNIT EDUCATOR, agreed w/resident/PA/CLINICAL UNIT EDUCATOR, reviewed EMR data (avail) Attending Assessment/Plan: 67F PMH bilateral obstructing ureteral calculus S/P stent, obesity, moderate to severe areas, pulmonary hypertension, 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 On admission she was hemodynamically stable but with dehydration, GHAZAL, and hypnatremia. CT abdomen shows ureteral stagorn calculus with ureteral thickening. Sodium 121 on admission, K 5.6, creatinine 4.8. Today the patient feels much better, still not back to her baseline. She was able to tolerate a full liquid diet this morning. She denies abdominal pain or nausea. Ostomy output is clear, green, and copious. She is having gross hematuria this morning. 1. Acute gastroenteritis 2. Hypovolemic hyponatremia 3. GHAZAL 4. Intractable nausea and vomiting 5. Staghorn calculus 6. Ureteral thickening 7. Hyperkalemia Plan - Continue on general medicine - Repeat BEP today and again tomorrow - Monitor off antibiotics - Gentle hydration with normal saline at 75mL/hr - Advance diet to regular - Monitor renal function - Continue home medications - DVT PPx
[2017-11-24 15:15] VITALS: BP 100/50
--- NOTE | 2017-11-24 16:05 | Admission Certification ---
Admission Certification Certification Statement - As attending physician, I certify that at the time of - admission, based on clinical presentation, severity of - symptoms, need for further diagnostic testing and - therapeutic interventions, and risk of adverse outcomes - without in-hospital treatment, in my clinical assessment, - this patient requires an acute hospital stay for a minimum - of two nights or longer. I have also considered psychsocial - factors such as support system, advanced age, financial - issues, cognitive issues, and failed out-patient treatments, - past re-admission history, safety of patient, and lack of - compliance as applicable. Specific rationale supporting this admission is: Dehydration, GHAZAL, sodium 121
--- NOTE | 2017-11-24 17:15 | Cons- Nephrology ---
General Information and HPI Consulting Request Date of Consult: 11/24/17 Requested By: Ronna Alcaraz MD Reason for Consult: Acute kidney injury Source of Information: patient, old records Exam Limitations: no limitations History of Present Illness: This 67-year-old woman has a history of staghorn calculus in the past. She presented to [facility] with several days worth of nausea vomiting fever and chills. She also complained of diffuse pains and was taking Advil every 4 hours. She was found upon presentation to have a serum creatinine of 4.9. Reviewing the old record, her serum creatinine previously had been running anywhere between 1.1-1.9. She's never had her staghorn calculus removed. She does report some degree of dysuria as well as a feeling of fever and chills. It is because the fever and chills that she was taking the Advil several leads. The right-sided staghorn calculus has not changed in size nor was there any suggestion of hydronephrosis on either side. It seems by imaging things have not changed. She does not report any back or flank pain with this just generalized pain and a feverish feeling. She also had nausea and vomiting was not able to keep anything down. In spite of her episode of acute kidney injury requiring dialytic intervention, her renal function did improve so that her kidney function is close to normal. Suspect that the right kidney with its staghorn calculus is not contributing greatly to the overall kidney function. Allergies/Medications Allergies: Coded Allergies: NO KNOWN ALLERGIES (05/07/13) Home Med List: Amlodipine Besylate 10 MG TABLET 1 TAB PO DAILY HEART/BP (Reported) Aspirin (Ecotrin*) 81 MG TABLET.DR 1 TAB PO DAILY HEART/BLOOD (Reported) Calcium (Elemental-Fr Calcarb) (Calcium) 600 MG CALCIUM (1,500 MG) TABLET 1 TAB PO DAILY SUPPLEMENT (Reported) Cholecalciferol (Vitamin D3) (Vitamin D) 2,000 UNIT TABLET 1 TAB PO DAILY SUPPLEMENT (Reported) Citalopram Hydrobromide (Citalopram HBr) 10 MG TABLET 1 TAB PO DAILY MENTAL HEALTH (Reported) Ferrous Sulfate 325 MG (65 MG IRON) TABLET 1 TAB PO DAILY SUPPLEMENT ( Reported) Lisinopril 5 MG TABLET 1 TAB PO DAILY BP (Reported) Lovastatin 40 MG TABLET 1 TAB PO DAILY CHOLESTEROL (Reported) with food Metformin HCl 1,000 MG TABLET 1 TAB PO BID DM (Reported) Metoprolol Tartrate 25 MG TABLET 1 TAB PO BID HEART/BP (Reported) [place]-3/Dha/Epa/Fish Oil (Fish Oil 1,000 MG Softgel) (Unknown Strength) CAPSULE 1 TAB PO DAILY SUPPLEMENT (Reported) Current Medications: Current Medications Sig/Debby Start time Last Medication Dose Route Stop Time Status Admin Acetaminophen 650 MG ONCE ONE 11/24 0100 DC 11/24 PO 11/24 0101 0058 Atorvastatin Calcium 10 MG 1700 11/23 1700 AC 11/24 PO 1647 Citalopram 10 MG DAILY 11/23 1339 AC 11/24 Hydrobromide PO 0902 Insulin Aspart 0 TIDAC 11/23 1700 AC SC Ondansetron HCl 4 MG Q6P PRN 11/23 1430 AC IV Sodium Chloride 1,000 ML Q10H 11/23 1345 DC 11/23 IV 11/24 0944 1420 Past History Travel History Traveled to [place] past 21 day No Medical History Blood Transfusion Hx: No Neurological: NONE EENT: NONE Cardiovascular: hypertension, hyperlipidemia, aortic stenosis Respiratory: NONE Gastrointestinal: umbilical hernia, she describes what sounds like a volvulus acquiring a resection. She says "my intestines turned on the themselves" Hepatic: NONE Renal: KIDNEY STONES, acute kidney injury 5 years ago specifically in April 2013 requiring dialysis Musculoskeletal: NONE Psychiatric: depression Endocrine: diabetes Blood Disorders: NONE Cancer(s): NONE BALLET SOLOIST/Reproductive: NONE Surgical History Surgical History: COLOSTOMY Family History Relations & Conditions If Any: FATHER FH: myocardial infarction Psychosocial History Where Do You Live? Home Services at Home: None Primary Language: French Smoking Status: Former Smoker ETOH Use: denies use Illicit Drug Use: denies illicit drug use Functional Ability ADLs Independent: dressing, eating, toileting, bathing. Ambulation: independent ECHO Results (as available) Date of last Echo 05/07/13 EF% 65 Exam & Diagnostic Data Vital Signs and I&O Vital Signs Date Time Temp Pulse Resp B/P B/P Pulse O2 O2 Flow FiO2 Mean Ox Delivery Rate 11/24 1515 97.9 87 20 100/50 99 Room Air 11/24 0600 97.0 70 20 104/60 99 Room Air Room Air 11/23 2354 98.4 75 20 93/53 99 Room Air Intake & Output 11/24 1600 11/24 0400 11/23 1600 11/23 0400 11/22 1600 11/22 0400 Intake Total 054 691 4469 Output Total 1225 1725 Balance -325 -825 1000 Intake, IV 1000 Intake, Oral 900 900 Output, Stool 100 300 Output, Urine 1125 1425 Patient 220 lb Weight Weight Reported by Patient Measurement Method Physical Exam General Appearance: well developed/nourished, no apparent distress, alert, awake , anxious, obese Head: atraumatic, normal appearance Eyes: Bilateral: normal appearance, PERRL, EOMI. Ears, Nose, Throat: normal pharynx, normal ENT inspection, hearing grossly normal Neck: normal inspection, supple, full range of motion, trachea mid line, no midline tenderness Respiratory: normal breath sounds, chest non-tender, no respiratory distress, lungs clear Cardiovascular: regular rate/rhythm, edema, gallop Peripheral Pulses: 3+ popliteal (R), 3+ popliteal (L), 3+ tibialis posterior (R), 3+ tibialis posterior (L), 3+ dorsalis pedis (R), 3+ dorsalis pedis (L) Gastrointestinal: normal bowel sounds, soft, non-tender, no organomegaly, colostomy right lower quadrant Back: normal inspection Extremities: normal inspection, normal capillary refill, normal range of motion, no edema Neurologic/Psych: no motor/sensory deficits, awake, alert, oriented x 3, no gross neurologic deficits Cranial Nerves: normal hearing, normal speech, PERRL Skin: intact, normal color, warm/dry Results Pertinent Lab Results: Laboratory Tests 11/24 11/24 11/23 0725 0110 2100 Chemistry Sodium (137 - 145 mmol/L) 134 L 131 L 131 L Potassium (3.5 - 5.1 mmol/L) 5.3 H 4.9 4.6 Chloride (98 - 107 mmol/L) 104 100 100 Carbon Dioxide (22 - 30 mmol/L) 16 L 16 L 15 L Anion Gap (5 - 16) 14 15 16 BUN (7 - 17 mg/dL) 91 H 93 H 97 H Creatinine (0.5 - 1.0 mg/dL) 3.2 H 3.5 H 3.6 H Estimated GFR (>60 ml/min) 14 L 13 L 13 L BUN/Creatinine Ratio (7 - 25 %) 28.4 H 26.6 H 26.9 H Hematology CBC w Diff NO MAN DIFF REQ WBC (4.8 - 10.8 /CUMM) 6.0 RBC (4.20 - 5.40 /CUMM) 3.50 L Hgb (12.0 - 16.0 G/DL) 9.5 L Hct (37 - 47 %) 28.0 L MCV (81.0 - 99.0 FL) 79.8 L MCH (27.0 - 31.0 PG) 27.2 RDW (11.5 - 14.5 %) 16.0 H Plt Count (130 - 400 /CUMM) 209 MPV (7.4 - 10.4 FL) 8.5 Gran % (42.2 - 75.2 %) 77.6 H Lymphocytes % (20.5 - 51.1 %) 10.6 L Monocytes % (1.7 - 9.3 %) 7.7 Eosinophils % (0 - 5 %) 3.3 Basophils % (0.0 - 2.0 %) 0.8 Absolute Granulocytes (1.4 - 6.5 /CUMM) 4.6 Absolute Lymphocytes (1.2 - 3.4 /CUMM) 0.6 L Absolute Monocytes (0.10 - 0.60 /CUMM) 0.5 Absolute Eosinophils (0.0 - 0.7 /CUMM) 0.2 Absolute Basophils (0.0 - 0.2 /CUMM) 0 PUBS MCHC (33.0 - 37.0 G/DL) 34.1 11/23 11/23 11/23 1830 1435 1355 Chemistry Sodium (137 - 145 mmol/L) 130 L 126 L Potassium (3.5 - 5.1 mmol/L) 5.0 5.3 H Chloride (98 - 107 mmol/L) 98 97 L Carbon Dioxide (22 - 30 mmol/L) 15 L 14 L Anion Gap (5 - 16) 17 H 15 BUN (7 - 17 mg/dL) 98 H 108 *H Creatinine (0.5 - 1.0 mg/dL) 3.8 H 4.1 H Estimated GFR (>60 ml/min) 12 L 11 L BUN/Creatinine Ratio (7 - 25 %) 25.8 H 26.3 H Lactic Acid Cancelled 11/23 11/23 11/23 1230 1230 1221 Chemistry Serum Osmolality Cancelled Urines Urinalysis MOD H Urine Color (YEL,AMB,STR) BLDY H Urine Clarity (CLEAR) CLDY H Urine pH (5.0 - 8.0) 6.5 Ur Specific [place] (1.001 - 1.035) 1.015 Urine Protein (NEG,<30 MG/DL) >=300 H Urine Ketones (NEG) 15 H Urine Nitrite (NEG) POS H Urine Bilirubin (NEG) NEG@ICTO Urine Urobilinogen (0.1 - 1.0 EU/dl) 2.0 H Ur Leukocyte Esterase (NEG) LARGE H Ur Microscopic SEDIMENT EXAMINED Urine RBC (0 - 5 /HPF) PACKD H Urine WBC (0 - 2 /HPF) > 75 H Ur Epithelial Cells (NONE,FEW) FEW Urine Bacteria (NEG/NONE) MOD H Micro UA Comment MORE INFO: H Urine Hemoglobin (NEG) LARGE H Urine Osmolality (300 - 1000 MOSM/KG) 234 L Ur Random Creatinine (mg/dL) 57.5 Ur Random Sodium (30 - 90 mmol/L) 19 L Ur Random Potassium (mmol/L) 29.5 Fraction Sodium Excret (<1% %) 1.3 H Urine Glucose (N MG/DL) NEG 11/23 1056 Chemistry Sodium (137 - 145 mmol/L) 121 L Potassium (3.5 - 5.1 mmol/L) 5.6 H Chloride (98 - 107 mmol/L) 85 L Carbon Dioxide (22 - 30 mmol/L) 15 L Anion Gap (5 - 16) 21 H BUN (7 - 17 mg/dL) 117 *H Creatinine (0.5 - 1.0 mg/dL) 4.9 H Estimated GFR (>60 ml/min) 9 L BUN/Creatinine Ratio (7 - 25 %) 23.9 Glucose (65 - 99 mg/dL) 120 H Serum Osmolality (285 - 295 MOSM/KG) 295 Lactic Acid (0.7 - 2.1 mmol/L) 1.6 Calcium (8.4 - 10.2 mg/dL) 9.5 Total Bilirubin (0.2 - 1.3 mg/dL) 0.5 AST (14 - 36 U/L) 16 ALT (9 - 52 U/L) 32 Alkaline Phosphatase (<127 U/L) 66 Troponin I (< 0.11 ng/ml) < 0.01 Total Protein (6.3 - 8.2 g/dL) 7.8 Albumin (3.5 - 5.0 g/dL) 4.8 Globulin (1.9 - 4.2 gm/dL) 3.0 Albumin/Globulin Ratio (1.1 - 2.2 %) 1.6 Lipase (23 - 300 U/L) 5197 H Hematology CBC w Diff NO MAN DIFF REQ WBC (4.8 - 10.8 /CUMM) 8.9 RBC (4.20 - 5.40 /CUMM) 4.23 Hgb (12.0 - 16.0 G/DL) 11.3 L Hct (37 - 47 %) 33.5 L MCV (81.0 - 99.0 FL) 79.3 L MCH (27.0 - 31.0 PG) 26.6 L RDW (11.5 - 14.5 %) 15.8 H Plt Count (130 - 400 /CUMM) 316 MPV (7.4 - 10.4 FL) 7.9 Gran % (42.2 - 75.2 %) 79.6 H Lymphocytes % (20.5 - 51.1 %) 10.5 L Monocytes % (1.7 - 9.3 %) 7.1 Eosinophils % (0 - 5 %) 2.5 Basophils % (0.0 - 2.0 %) 0.3 Absolute Granulocytes (1.4 - 6.5 /CUMM) 7.1 H Absolute Lymphocytes (1.2 - 3.4 /CUMM) 0.9 L Absolute Monocytes (0.10 - 0.60 /CUMM) 0.6 Absolute Eosinophils (0.0 - 0.7 /CUMM) 0.2 Absolute Basophils (0.0 - 0.2 /CUMM) 0 PUBS MCHC (33.0 - 37.0 G/DL) 33.5 Imaging/Other Studies: PATIENT: LETY WALL PRESENT AGE: 67 PATIENT ACCOUNT NO: [id number] : 48 LOCATION: [facility] ORDERING PHYSICIAN: Diego WORLEY SERVICE DATE: 11/23/17 EXAM TYPE: CAT - CT ABD & PELVIS W/O IV CONTRAS EXAMINATION: CT ABDOMEN AND PELVIS WITHOUT CONTRAST CLINICAL INFORMATION: Nausea, vomiting, elevated lipase. Possible pancreatitis. COMPARISON: CT abdomen and pelvis 05/21/2017. TECHNIQUE: Multidetector volumetric imaging was performed from the superior aspect of the liver through the pubic symphysis. Sagittal and coronal reformatted images were obtained on the technologist's workstation. DLP: 1312 mGy-cm FINDINGS: LUNG BASES: There is no airspace consolidation or effusion. Stable fine linear scarring left anterolateral base. LIVER, GALLBLADDER, AND BILIARY TREE: Smooth in contour and homogeneous. No focal hepatic parenchymal lesion or intrahepatic biliary ductal dilatation. The gallbladder shows no dilatation or wall thickening or pericholecystic inflammatory changes. There are subtle dependent densities within the lumen likely gravel like calculi. Common duct is stable at 9-10 mm. No visible ductal calculus. PANCREAS: The pancreas is normal in size and contour and attenuation. There is no pancreatic ductal distention or peripancreatic inflammatory changes. SPLEEN: Unremarkable. ADRENAL GLANDS: Unremarkable. KIDNEYS AND URETERS: Left kidney has punctate nonobstructing lower pole calculus under 3 mm. No hydronephrosis or significant stranding. Right kidney again has large staghorn in the pelvis at least 2.1 x 3.3 cm, 460 HU attenuation, and 15 cm from the flank. The staghorn extends into the right upper and lower pole infundibula. There are some calculi lower pole. There is no perinephric stranding or interval hydronephrosis. No distal ureteral calculus. BLADDER: Unremarkable. GASTROINTESTINAL TRACT/ABDOMINAL WALL: There appears to have been prior right and transverse colectomy with right lower quadrant ileostomy. Large fat-containing hernia again seen at the anterior right lower quadrant at the ostomy, again containing multiple loops of small bowel and portion of lower left colon. There are left colonic diverticula without inflammatory changes. No bowel strangulation or airspace ascites or fluid collection. LYMPH NODES: No lymphadenopathy. VASCULAR: Unremarkable on noncontrast exam. PELVIC VISCERA: Unremarkable. OSSEOUS STRUCTURES: No acute bony abnormality. IMPRESSION: 1. No acute inflammatory changes abdomen or pelvis. 2. Probable small gravel like gallstones. No gallbladder wall thickening or intrahepatic ductal dilatation. Fullness extrahepatic ducts stable. 3. Pancreas unremarkable. No duct dilatation or peripancreatic inflammatory changes. 4. Right staghorn renal calculus. No interval hydronephrosis or perinephric stranding. Punctate nonobstructing left renal calculus. 5. Large fat and bowel containing hernia at right lower quadrant ostomy. No bowel obstruction or wall thickening. DICTATED BY: Ruben Chavez MD DATE/TIME DICTATED:11/23/171239 [employer] INFORMATION CLERK:[place] DATE/TIME TRANSCRIBED:11/23/171239 CONFIDENTIAL, DO NOT COPY WITHOUT APPROPRIATE AUTHORIZATION. <Electronically signed in Other Vendor System> SIGNED BY: Ruben Chavez MD [id number] Assessment/Plan Assessment/Recommendations Assessment: 1. Acute kidney injury. By description it seems that she was volume depleted when she presented last night. Add to that, she was taking ibuprofen. Combination of poor by mouth intake and ibuprofen administration may be playing a role here. She is no hydronephrosis. Her urine culture so far is no growth. She did have quite a bit of pyuria. Also of note, she had 3 mg/dL protein in her urine. In addition she was on lisinopril for her high blood pressure. She feels much better today. 2. Presumed sepsis of urinary origin? Cultures are negative thus far. She does not appear septic. She simply responded to fluids 3. Volume status. I'm told she received 4 L total. It may be that she will not require further fluids. Instead would encourage by mouth fluids as she typically doesn't home. Recommendations: 1. Encourage by mouth fluids 2. Repeat BMP 3. Await cultures. The worrisome issue is with staghorn calculus if she does have a positive culture what is to be done about the calculus? An infected calculus, which staghorn's very often are, in service an nidus for further infections.
[2017-11-24 22:38] VITALS: BP 102/60
[2017-11-25 06:34] VITALS: BP 112/62
--- NOTE | 2017-11-25 07:31 | PN- Housestaff ---
Karlee NAJERA,Nicole 11/25/17 0731: Subjective Follow-up For: Intractable nausea and vomiting (improvd) Acute on chronic Hyponatremia-improved Dehydration Acute kidney injury High lipase Hematuria Chronic staghorn calculi Subjective: Patient was seen and examined bedside, she denies any complaints, denies nausea, vomiting, diarrhea, she was able to tolerate her diet yesterday, her kidney functions improved today, urine culture was negative Review of Systems Constitutional: Denies: no symptoms. Cardiovascular: Denies: no symptoms. Respiratory: Denies: no symptoms. Gastrointestinal: Denies: no symptoms. Genitourinary: Denies: no symptoms. Musculoskeletal: Denies: no symptoms. Objective Last 24 Hrs of Vital Signs/I&O Vital Signs Date Time Temp Pulse Resp B/P B/P Pulse O2 O2 Flow FiO2 Mean Ox Delivery Rate 11/25 1141 74 118/64 11/25 1141 74 118/64 11/25 0634 97.9 73 20 112/62 99 Room Air 11/24 2238 98.2 81 20 102/60 99 Room Air 11/24 1515 97.9 87 20 100/50 99 Room Air Intake & Output 11/25 1600 11/25 0800 11/25 0000 Intake Total 0 800 Output Total 625 302 Balance -625 498 Intake, IV 0 Intake, Oral 0 800 Output, Stool 150 2 Output, Urine 475 300 Physical Exam General Appearance: Alert, Oriented X3, Cooperative, No Acute Distress HEENT: Atraumatic, PERRLA, EOMI, Mucous Membr. moist/pink Cardiovascular: Regular Rate, Normal S1, Normal S2, No Murmurs Lungs: Clear to Auscultation Abdomen: Normal Bowel Sounds, Soft, No Tenderness, clostmy bag in place, skin around normal Neurological: Normal Speech, Strength at 5/5 X4 Ext, Normal Tone Extremities: No Clubbing, No Cyanosis, No Edema Assessment/Plan Assessment: Patient is seen and examined at bedside, afebrile saturating at 96 on 2 L nasal cannula ,she reports mild improvement of her shortness of breath on nebulizer treatment. Still endorses cough and expectoration. Denies fever, chills, nausea, vomiting, diarrhea or constipation Intractable nausea and vomiting Acute on chronic Hyponatremia Dehydration Acute kidney injury High lipase Hematuria Chronic staghorn calculi Intractable nausea and vomiting/ ? Acute diarrhea/electrolyte abnormalities Improved DC IV fluids moonitor off antibiotics Continue to monitor renal functions Advance diet to regular -Zofran for nausea. -We will also replete electrolytes as necessary. Advanced to regular diet. Monitor input and output. BEB mitor Restart blood pressure medications as blood pressure is improved. Acute on chronic hyponatremia improved Likely secondary to hypervolemic hypotonic hyponatremia secondary to dehydration in the setting of acute kidney injury. Borderline increased serum osmolality low urinary sodium and osmolarity We'll give IV fluids and follow-up with a BEP. Acute kidney injury Likely secondary hypovolemia leading to prerenal type of kidney injury obstruction ruled out by recent imaging. Patient has already received IV fluids will follow-up with a renal function. Avoid NSAIDS and nephrotoxic medications. Follow up on nephrology recommendation History of UTI/bilateral ureteral stents Urine culture was negative, would hold off antibiotics for now will need patient fllow p with urologist High lipase Likely elevated secondary to to acute on chronic diarrhea in the setting of acute kidney injury. No significant evidence of pancreatitis on imaging but differential cannot be ruled out. full code diabetic diet DVT prpylaxis with sc heparin Problem List: 1. Hyperkalemia 2. Gastroenteritis 3. 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 On admission she was hemodynamically stable but with dehydration, GHAZAL, and hypnatremia. CT abdomen shows ureteral stagorn calculus with ureteral thickening. Sodium 121 on admission, K 5.6, creatinine 4.8. Today the patient feels much better, still not back to her baseline. She was able to tolerate a full liquid diet this morning. She denies abdominal pain or nausea. Ostomy output is clear, green, and copious. She is having gross hematuria this morning. 1. Acute gastroenteritis 2. Hypovolemic hyponatremia 3. GHAZAL 4. Intractable nausea and vomiting 5. Staghorn calculus 6. Ureteral thickening 7. Hyperkalemia Plan - Continue on general medicine - Monitor off antibiotics - Discontinue IV fluids - Advance diet to regular - Monitor renal function - Continue home medications - DVT PPx - Anticipated discharge home tomorrow - Outpatient urology follow up for staghorn calculus
[2017-11-25 08:35] LABS: ABSOLUTE BASOPHIL COUNT 0 /CUMM (0.0-0.2); ABSOLUTE EOSINOPHIL COUNT 0.3 /CUMM (0.0-0.7); ABSOLUTE LYMPH COUNT 0.7 /CUMM (1.2-3.4); ABSOLUTE MONOCYTE COUNT 0.5 /CUMM (0.10-0.60); BASOPHIL % 0.5 % (0.0-2.0); GRANULOCYTE % 77.5 % (42.2-75.2); HEMATOCRIT 28.3 % (37-47); MEAN CORPUSCULAR HGB 26.7 PG (27.0-31.0); MEAN CORPUSCULAR HGB CONC 33.2 G/DL (33.0-37.0); MEAN CORPUSCULAR VOLUME 80.3 FL (81.0-99.0); MEAN PLATELET VOLUME 8.7 FL (7.4-10.4); PLATELET COUNT 216 /CUMM (130-400); RBC DISTRIBUTION WIDTH 16.1 % (11.5-14.5); RED BLOOD CELL CT 3.52 /CUMM (4.20-5.40); WHITE BLOOD CELL COUNT 6.4 /CUMM (4.8-10.8)
--- NOTE | 2017-11-25 12:38 | PN- Nephrology ---
Assessment/Plan Assessment: 1. Acute kidney injury. She continues to improve. Continue to encourage by mouth fluids. 2. Presumed sepsis of urinary origin? Cultures are finalized as being negative. She simply responded to fluids. 3. Volume status. Appears euvolemic 4. Staghorn calculus. In the absence of any evidence of urinary tract infection, this likely could be followed by urology as an outpatient. Suggestion: Encourage by mouth fluids May need to restrict potassium for the time being. Subjective Subjective: Patient looks well. Feels well. Objective Vital Signs and I&Os Vital Signs Date Time Temp Pulse Resp B/P B/P Pulse O2 O2 Flow FiO2 Mean Ox Delivery Rate 11/25 1141 74 118/64 11/25 1141 74 118/64 11/25 0634 97.9 73 20 112/62 99 Room Air 11/24 2238 98.2 81 20 102/60 99 Room Air 11/24 1515 97.9 87 20 100/50 99 Room Air Intake & Output 11/25 1600 11/25 0400 11/24 1600 11/24 0400 11/23 1600 11/23 0400 Intake Total 0 800 424 361 0971 Output Total 408 428 4665 1725 Balance -625 498 -325 -825 1000 Intake, IV 0 1000 Intake, Oral 0 800 900 900 Output, Stool 150 2 100 300 Output, Urine 483 933 5270 1425 Patient 220 lb Weight Weight Reported by Patient Measurement Method Physical Exam: General Appearance: well developed/nourished, no acute distress, alert, awake, obese Head: atraumatic, normal appearance Eyes: Bilateral: normal appearance, PERRL, EOMI. Neck: normal inspection, supple, full range of motion, trachea mid line, no midline tenderness Respiratory: normal breath sounds, chest non-tender, lungs clear Cardiovascular: regular rate/rhythm, edema, gallop Gastrointestinal: normal bowel sounds, soft, non-tender, no organomegaly, colostomy right lower quadrant Back: normal inspection Extremities: normal inspection, normal capillary refill, normal range of motion, no edema Neurologic/Psych: no motor/sensory deficits, awake, alert, oriented x 3, no gross neurologic deficits Skin: intact, normal color, warm/dry Current Medications: Current Medications Sig/Debby Start time Last Medication Dose Route Stop Time Status Admin Amlodipine Besylate 10 MG DAILY 11/25 1039 AC 11/25 PO 1141 Atorvastatin Calcium 10 MG 1700 11/23 1700 AC 11/24 PO 1647 Calcium/Vitamin D 250 MG DAILY 11/25 1039 AC 11/25 PO 1142 Citalopram 10 MG DAILY 11/23 1339 AC 11/25 Hydrobromide PO 0855 Ferrous Sulfate 325 MG DAILY 11/25 1040 AC 11/25 PO 1141 Fish Oil 1,050 MG DAILY 11/25 1040 AC 11/25 PO 1142 Insulin Aspart 0 TIDAC 11/23 1700 AC SC Melatonin 5 MG AT BEDTIME 11/25 2200 AC PO Metoprolol Tartrate 25 MG BID 11/25 1038 AC 11/25 PO 1141 Ondansetron HCl 4 MG Q6P PRN 11/23 1430 AC IV Patient Medication 1 ED ONE ONE 11/25 1315 DC Teaching ED 11/25 1316 Results Pertinent Lab Results: Laboratory Tests 11/25 11/24 0733 1824 Chemistry Sodium (137 - 145 mmol/L) 137 136 L Potassium (3.5 - 5.1 mmol/L) 5.4 H 5.6 H Chloride (98 - 107 mmol/L) 106 103 Carbon Dioxide (22 - 30 mmol/L) 19 L 17 L Anion Gap (5 - 16) 12 17 H BUN (7 - 17 mg/dL) 72 H 81 H Creatinine (0.5 - 1.0 mg/dL) 2.4 H 2.8 H Estimated GFR (>60 ml/min) 20 L 17 L BUN/Creatinine Ratio (7 - 25 %) 30.0 H 28.9 H Hematology CBC w Diff NO MAN DIFF REQ WBC (4.8 - 10.8 /CUMM) 6.4 RBC (4.20 - 5.40 /CUMM) 3.52 L Hgb (12.0 - 16.0 G/DL) 9.4 L Hct (37 - 47 %) 28.3 L MCV (81.0 - 99.0 FL) 80.3 L MCH (27.0 - 31.0 PG) 26.7 L RDW (11.5 - 14.5 %) 16.1 H Plt Count (130 - 400 /CUMM) 216 MPV (7.4 - 10.4 FL) 8.7 Gran % (42.2 - 75.2 %) 77.5 H Lymphocytes % (20.5 - 51.1 %) 10.2 L Monocytes % (1.7 - 9.3 %) 7.8 Eosinophils % (0 - 5 %) 4.0 Basophils % (0.0 - 2.0 %) 0.5 Absolute Granulocytes (1.4 - 6.5 /CUMM) 5.0 Absolute Lymphocytes (1.2 - 3.4 /CUMM) 0.7 L Absolute Monocytes (0.10 - 0.60 /CUMM) 0.5 Absolute Eosinophils (0.0 - 0.7 /CUMM) 0.3 Absolute Basophils (0.0 - 0.2 /CUMM) 0 PUBS MCHC (33.0 - 37.0 G/DL) 33.2 11/24 11/24 11/23 0725 0110 2100 Chemistry Sodium (137 - 145 mmol/L) 134 L 131 L 131 L Potassium (3.5 - 5.1 mmol/L) 5.3 H 4.9 4.6 Chloride (98 - 107 mmol/L) 104 100 100 Carbon Dioxide (22 - 30 mmol/L) 16 L 16 L 15 L Anion Gap (5 - 16) 14 15 16 BUN (7 - 17 mg/dL) 91 H 93 H 97 H Creatinine (0.5 - 1.0 mg/dL) 3.2 H 3.5 H 3.6 H Estimated GFR (>60 ml/min) 14 L 13 L 13 L BUN/Creatinine Ratio (7 - 25 %) 28.4 H 26.6 H 26.9 H Hematology CBC w Diff NO MAN DIFF REQ WBC (4.8 - 10.8 /CUMM) 6.0 RBC (4.20 - 5.40 /CUMM) 3.50 L Hgb (12.0 - 16.0 G/DL) 9.5 L Hct (37 - 47 %) 28.0 L MCV (81.0 - 99.0 FL) 79.8 L MCH (27.0 - 31.0 PG) 27.2 RDW (11.5 - 14.5 %) 16.0 H Plt Count (130 - 400 /CUMM) 209 MPV (7.4 - 10.4 FL) 8.5 Gran % (42.2 - 75.2 %) 77.6 H Lymphocytes % (20.5 - 51.1 %) 10.6 L Monocytes % (1.7 - 9.3 %) 7.7 Eosinophils % (0 - 5 %) 3.3 Basophils % (0.0 - 2.0 %) 0.8 Absolute Granulocytes (1.4 - 6.5 /CUMM) 4.6 Absolute Lymphocytes (1.2 - 3.4 /CUMM) 0.6 L Absolute Monocytes (0.10 - 0.60 /CUMM) 0.5 Absolute Eosinophils (0.0 - 0.7 /CUMM) 0.2 Absolute Basophils (0.0 - 0.2 /CUMM) 0 PUBS MCHC (33.0 - 37.0 G/DL) 34.1 11/23 11/23 11/23 1830 1435 1355 Chemistry Sodium (137 - 145 mmol/L) 130 L 126 L Potassium (3.5 - 5.1 mmol/L) 5.0 5.3 H Chloride (98 - 107 mmol/L) 98 97 L Carbon Dioxide (22 - 30 mmol/L) 15 L 14 L Anion Gap (5 - 16) 17 H 15 BUN (7 - 17 mg/dL) 98 H 108 *H Creatinine (0.5 - 1.0 mg/dL) 3.8 H 4.1 H Estimated GFR (>60 ml/min) 12 L 11 L BUN/Creatinine Ratio (7 - 25 %) 25.8 H 26.3 H Lactic Acid Cancelled 11/23 11/23 11/23 1230 1230 1221 Chemistry Serum Osmolality Cancelled Urines Urinalysis MOD H Urine Color (YEL,AMB,STR) BLDY H Urine Clarity (CLEAR) CLDY H Urine pH (5.0 - 8.0) 6.5 Ur Specific [place] (1.001 - 1.035) 1.015 Urine Protein (NEG,<30 MG/DL) >=300 H Urine Ketones (NEG) 15 H Urine Nitrite (NEG) POS H Urine Bilirubin (NEG) NEG@ICTO Urine Urobilinogen (0.1 - 1.0 EU/dl) 2.0 H Ur Leukocyte Esterase (NEG) LARGE H Ur Microscopic SEDIMENT EXAMINED Urine RBC (0 - 5 /HPF) PACKD H Urine WBC (0 - 2 /HPF) > 75 H Ur Epithelial Cells (NONE,FEW) FEW Urine Bacteria (NEG/NONE) MOD H Micro UA Comment MORE INFO: H Urine Hemoglobin (NEG) LARGE H Urine Osmolality (300 - 1000 MOSM/KG) 234 L Ur Random Creatinine (mg/dL) 57.5 Ur Random Sodium (30 - 90 mmol/L) 19 L Ur Random Potassium (mmol/L) 29.5 Fraction Sodium Excret (<1% %) 1.3 H Urine Glucose (N MG/DL) NEG 11/23 1056 Chemistry Sodium (137 - 145 mmol/L) 121 L Potassium (3.5 - 5.1 mmol/L) 5.6 H Chloride (98 - 107 mmol/L) 85 L Carbon Dioxide (22 - 30 mmol/L) 15 L Anion Gap (5 - 16) 21 H BUN (7 - 17 mg/dL) 117 *H Creatinine (0.5 - 1.0 mg/dL) 4.9 H Estimated GFR (>60 ml/min) 9 L BUN/Creatinine Ratio (7 - 25 %) 23.9 Glucose (65 - 99 mg/dL) 120 H Serum Osmolality (285 - 295 MOSM/KG) 295 Lactic Acid (0.7 - 2.1 mmol/L) 1.6 Calcium (8.4 - 10.2 mg/dL) 9.5 Total Bilirubin (0.2 - 1.3 mg/dL) 0.5 AST (14 - 36 U/L) 16 ALT (9 - 52 U/L) 32 Alkaline Phosphatase (<127 U/L) 66 Troponin I (< 0.11 ng/ml) < 0.01 Total Protein (6.3 - 8.2 g/dL) 7.8 Albumin (3.5 - 5.0 g/dL) 4.8 Globulin (1.9 - 4.2 gm/dL) 3.0 Albumin/Globulin Ratio (1.1 - 2.2 %) 1.6 Lipase (23 - 300 U/L) 5197 H Hematology CBC w Diff NO MAN DIFF REQ WBC (4.8 - 10.8 /CUMM) 8.9 RBC (4.20 - 5.40 /CUMM) 4.23 Hgb (12.0 - 16.0 G/DL) 11.3 L Hct (37 - 47 %) 33.5 L MCV (81.0 - 99.0 FL) 79.3 L MCH (27.0 - 31.0 PG) 26.6 L RDW (11.5 - 14.5 %) 15.8 H Plt Count (130 - 400 /CUMM) 316 MPV (7.4 - 10.4 FL) 7.9 Gran % (42.2 - 75.2 %) 79.6 H Lymphocytes % (20.5 - 51.1 %) 10.5 L Monocytes % (1.7 - 9.3 %) 7.1 Eosinophils % (0 - 5 %) 2.5 Basophils % (0.0 - 2.0 %) 0.3 Absolute Granulocytes (1.4 - 6.5 /CUMM) 7.1 H Absolute Lymphocytes (1.2 - 3.4 /CUMM) 0.9 L Absolute Monocytes (0.10 - 0.60 /CUMM) 0.6 Absolute Eosinophils (0.0 - 0.7 /CUMM) 0.2 Absolute Basophils (0.0 - 0.2 /CUMM) 0 PUBS MCHC (33.0 - 37.0 G/DL) 33.5
[2017-11-25 14:16] VITALS: BP 100/52
[2017-11-25 22:30] VITALS: BP 122/78
[2017-11-26 07:10] VITALS: BP 112/60
--- NOTE | 2017-11-26 07:17 | PN- Housestaff ---
Karlee NAJERA,Nicole 11/26/17 0717: Subjective Follow-up For: Intractable nausea and vomiting (improvd) Acute on chronic Hyponatremia-improved Dehydration Acute kidney injury High lipase Hematuria Chronic staghorn calculi Subjective: Patient was seen and examined bedside, she denies any complaints, Review of Systems Constitutional: Denies: no symptoms. Cardiovascular: Denies: no symptoms. Respiratory: Denies: no symptoms. Gastrointestinal: Denies: no symptoms. Genitourinary: Denies: no symptoms. Objective Last 24 Hrs of Vital Signs/I&O Vital Signs Date Time Temp Pulse Resp B/P B/P Pulse O2 O2 Flow FiO2 Mean Ox Delivery Rate 11/26 08 92 130/78 11/26 0818 92 130/78 11/26 0710 97.7 72 18 112/60 97 11/25 2230 98.2 76 18 122/78 95 Room Air 11/25 2158 74 122/78 11/25 1416 98.6 73 20 100/52 97 Intake & Output 11/26 1600 11/26 0800 11/26 0000 Intake Total 240 1280 Output Total 400 1425 Balance -160 -145 Intake, Oral 240 1280 Output, Stool 150 225 Output, Urine 250 1200 Physical Exam General Appearance: Alert, Oriented X3, Cooperative, No Acute Distress HEENT: Atraumatic, PERRLA, EOMI, Mucous Membr. moist/pink Neck: Supple, No JVD Cardiovascular: Normal S1, Normal S2, No Murmurs Lungs: Clear to Auscultation Abdomen: Normal Bowel Sounds, Soft, No Tenderness Neurological: Normal Speech, Strength at 5/5 X4 Ext, Normal Tone, Sensation Intact Extremities: No Clubbing, No Cyanosis, No Edema Vascular: Normal Pulses Assessment/Plan Assessment: Patient is seen and examined at bedside, afebrile saturating at 96 on 2 L nasal cannula ,she reports mild improvement of her shortness of breath on nebulizer treatment. Still endorses cough and expectoration. Denies fever, chills, nausea, vomiting, diarrhea or constipation Intractable nausea and vomiting Acute on chronic Hyponatremia Dehydration Acute kidney injury High lipase Hematuria Chronic staghorn calculi Intractable nausea and vomiting/ ? Acute diarrhea/electrolyte abnormalities Improved moonitor off antibiotics -Zofran for nausea. -We will also replete electrolytes as necessary. Monitor input and output. BEB mitor continue blood pressure medications as blood pressure is improved. Acute on chronic hyponatremia improved Likely secondary to hypervolemic hypotonic hyponatremia secondary to dehydration in the setting of acute kidney injury. Borderline increased serum osmolality low urinary sodium and osmolarity We'll give IV fluids and follow-up with a BEP. Acute kidney injury Likely secondary hypovolemia leading to prerenal type of kidney injury obstruction ruled out by recent imaging. Patient has already received IV fluids will follow-up with a renal function. Avoid NSAIDS and nephrotoxic medications. Follow up on nephrology recommendation History of UTI/bilateral ureteral stents Urine culture was negative, would hold off antibiotics for now will need patient fllow p with urologist High lipase Likely elevated secondary to to acute on chronic diarrhea in the setting of acute kidney injury. No significant evidence of pancreatitis on imaging but differential cannot be ruled out. Patient is a stable for discharge today, to follow up with her PCP regarding restarting antidiabetic meds and follow-up on her on her BEP full code diabetic diet DVT prpylaxis with sc heparin Problem List: 1. Staghorn calculus 2. Hyperkalemia 3. 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 On admission she was hemodynamically stable but with dehydration, GHAZAL, and hypnatremia. CT abdomen shows ureteral stagorn calculus with ureteral thickening. Sodium 121 on admission, K 5.6, creatinine 4.8. She denies abdominal pain or nausea. Ostomy output is clear, green, and copious. She feels back to baseline. 1. Acute gastroenteritis 2. Hypovolemic hyponatremia 3. GHAZAL 4. Intractable nausea and vomiting 5. Staghorn calculus 6. Ureteral thickening 7. Hyperkalemia Plan - Stable for discharge home - Repeat BEP as outpatient - Continue home medications - Outpatient urology follow up for staghorn calculus
--- NOTE | 2017-11-26 07:42 | Patient Discharge Instructions ---
Discharge Instructions General Discharge Information You were seen/treated for: Intractable nausea and vomiting (improvd) Acute on chronic Hyponatremia-improved Dehydration Acute kidney injury High lipase Hematuria Chronic staghorn calculi Special Instructions: 1-PLEASE FOLLOW UP WITH PCP IN 3-4 DAYS TO ADRESS YOUR ANTIDIABETIC MEDS AND FOLLOW UP ON BEP 2- PLEASE FOLLOW UP WITH UROLOGIST FOR STAGHORN RENAL STONE 3-PLEASE FOLLOW UP WITH SEPARATING MACHINE OPERATOR IN 1 WEEK FOR ACUTE KIDNEY INJURY 4- PLEASE FOLLOW STRICT DIABETIC DIET Diet Continue normal diet: Yes Recommended Diet: Diabetic Activity Full Activity/No Limits: Yes Acute Coronary Syndrome Inclusion Criteria At DC or during hospital stay patient has or had the following: ACS DIAGNOSIS No Discharge Core Measures Meds if any: Prescribed or Continued at Discharge Meds if any: NOT Prescribed or Continued at Discharge Congestive Heart Failure Inclusion Criteria At DC or during hospital stay patient has or had the following: CHF DIAGNOSIS No Discharge Core Measures Meds if any: Prescribed or Continued at Discharge Meds if any: NOT Prescribed or Continued at Discharge Cerebrovascular accident Inclusion Criteria At DC or during hospital stay patient has or had the following: CVA/TIA Diagnosis No Discharge Core Measures Meds if any: Prescribed or Continued at Discharge Meds if any: NOT Prescribed or Continued at Discharge Venous thromboembolism Inclusion Criteria VTE Diagnosis No VTE Type NONE VTE Confirmed by (Test) NONE Discharge Core Measures - Per Current guidelines, there needs to be overlap - treatment for the first 5 days of Warfarin therapy. - If discharged on Warfarin prior to 5 days of - overlap therapy, the patient will need to be - assessed for post discharge needs including - *Post discharge parental anticoagulation - *Warfarin and/or parental anticoagulation education - *Follow up date to check INR post discharge At least 5 days overlap therapy as Inpatient No Meds if any: Prescribed or Continued at Discharge Note: Overlap Therapy is Warfarin and Anticoagulant Meds if any: NOT Prescribed or Continued at Discharge
[2017-11-26 08:18] VITALS: BP 130/78
--- NOTE | 2017-11-26 08:49 | Discharge Summary ---
Visit Information Visit Dates Admission Date: 11/23/17 Discharge Date: 11/26/17 Hospital Course Course Attending Physician: Ronna Alcaraz MD Primary Care Physician: Melisa NAJERA,[facility] Course: 67-year-old obese woman with past medical history significant for hypertension, hyperlipidemia, type 2 diabetes on metformin, history of nephrolithiasis status post bilateral ureteral stents, history of cholelithiasis, history of colostomy for an incarcerated hernia 2006, past admission in [facility] in 2012 for bilateral obstructing calculi with bilateral hydronephrosis, metabolic acidosis, and hyponatremia, past admission in May 2017 with viral gastroenteritis and acute kidney injury, came to emergency department today with chief complaint of decreased by mouth intake along with nausea and vomiting for the last 1 week. EKG Results NSR, HR 79, No acute ST changes CXR Results No acute cardio pulmonary findings CT abdomen: No acute inflammatory changes abdomen or pelvis. Probable small gravel like gallstones. No gallbladder wall thickening or intrahepatic ductal dilatation. Fullness extrahepatic ducts stable. Pancreas unremarkable. No duct dilatation or peripancreatic inflammatory changes. Right staghorn renal calculus. No interval hydronephrosis or perinephric stranding. Punctate nonobstructing left renal calculus. Large fat and bowel containing hernia at right lower quadrant ostomy. Vitals in emergency department patient afebrile, no tachypnea, no tachycardia, one episode of 97, blood pressure on admission to ED 82/50, slightly improved to 101/50, oxygen saturation of 95 -100% on room air. Labs significant for leukocytosis white count of 8.9, granulocytes 79.6, no bands, hemoglobin of 11.3 and hematocrit of 33.5, at baseline, significant electrolyte abnormalities with sodium of 121, potassium of 5.6, chloride 85, anion gap increased 21, BUN 117, and creatinine 4.9, lactic acid 1.6 on admission, troponin less than 0.01 and lipase of 5197 Intractable nausea and vomiting/ ? Acute diarrhea/electrolyte abnormalities Patient was monitored off antibiotics, close monitoring of her electrolytes and kidney functions. She was given Zofran when necessary for nausea, patient's symptoms improved while in the hospital. Most likely that was due gastroenteritis History of hypertension: Her home dose of blood pressure meds were restarted Acute on chronic hyponatremia On admission patient's sodium was 121, she was given IV normal saline, her sodium normalized within the first 48 hours Likely secondary to hypervolemic hypotonic hyponatremia secondary to dehydration in the setting of acute kidney injury. Labs showed Borderline increased serum osmolality low urinary sodium and osmolarity Acute kidney injury On admission the patient had BUN 117, and creatinine 4.9,Likely secondary hypovolemia leading to prerenal type of kidney injury . Nephrology recommended to encourage by mouth intake and to hold metformin upon discharge. Patient was advised to repeat BEP in 1 week of discharge and to follow up with health care assistant as outpatient in 1 week. History of UTI/bilateral ureteral stents CT scan showed a staghorn stone, urine and blood cultures were negative, patient was monitored off antibiotics Patient was advised to follow up with urologist as outpatient. High lipase Likely elevated secondary to to acute on chronic diarrhea in the setting of acute kidney injury. No significant evidence of pancreatitis on imaging but differential cannot be ruled out. Patient is full code Patient is on ALPS for DVT prophylaxis because of mild hematuria Patient is on pain management Patient is on diabetic diet Allergies: Coded Allergies: NO KNOWN ALLERGIES (05/07/13) Disposition Summary Disposition Principal Diagnosis: Intractable nausea and vomiting Acute on chronic Hyponatremia Dehydration Acute kidney injury Additional Diagnosis: High lipase Hematuria Chronic staghorn calculi Discharge Disposition: home or self care Discharge Instructions General Discharge Information Code Status: Full Code Patient's Diet: Consistent carbohydrate Patient's Activity: As tolerated Follow-Up Instructions/Appts: 1-PLEASE FOLLOW UP WITH PCP IN 3-4 DAYS TO ADRESS YOUR ANTIDIABETIC MEDS AND FOLLOW UP ON BEP 2- PLEASE FOLLOW UP WITH UROLOGIST FOR STAGHORN RENAL STONE 3-PLEASE FOLLOW UP WITH BUSINESS INSIGHT AND ANALYTICS MANAGER IN 1 WEEK FOR ACUTE KIDNEY INJURY 4- PLEASE FOLLOW STRICT DIABETIC DIET Medications at Discharge Discharge Medications: Stop taking the following medications: Metformin HCl (Metformin HCl) 1,000 MG TABLET ORAL TWICE DAILY Qty = 180 Continue taking these medications: Citalopram Hydrobromide (Citalopram HBr) 10 MG TABLET 1 Tablet ORAL DAILY Qty = 30 Comments: Last Taken: 11/26/17 Time: 0820 AM Lovastatin (Lovastatin) 40 MG TABLET 1 Tablet ORAL DAILY Qty = 90 Instructions: with food Comments: LIPITOR GIVEN Last Taken: 11/25/17 Time: 5:00 PM Amlodipine Besylate (Amlodipine Besylate) 10 MG TABLET 1 Tablet ORAL DAILY Qty = 90 Comments: Last Taken: 11/26/17 Time: 0820 AM Metoprolol Tartrate (Metoprolol Tartrate) 25 MG TABLET 1 Tablet ORAL TWICE DAILY Qty = 180 Comments: Last Taken: 11/26/17 Time: 0820 AM Lisinopril (Lisinopril) 5 MG TABLET 1 Tablet ORAL DAILY Qty = 90 Comments: not given in hospital Aspirin (Ecotrin*) 81 MG TABLET.DR 1 Tablet ORAL DAILY Comments: NOT GIVEN IN HOSPITAL [place]-3/Dha/Epa/Fish Oil (Fish Oil 1,000 MG Softgel) (Unknown Strength) CAPSULE 1 Tablet ORAL DAILY Qty = 30 Comments: Last Taken: 11/26/17 Time: 0820 AM Cholecalciferol (Vitamin D3) (Vitamin D) 2,000 UNIT TABLET 1 Tablet ORAL DAILY Comments: not given in hospital Calcium (Elemental-Fr Calcarb) (Calcium) 600 MG CALCIUM (1,500 MG) TABLET 1 Tablet ORAL DAILY Comments: Last Taken: 11/26/17 Time: 0820 AM Ferrous Sulfate (Ferrous Sulfate) 325 MG (65 MG IRON) TABLET 1 Tablet ORAL DAILY Comments: Last Taken: 11/26/17 Time: 0820 AM Copies To: Melisa NAJERA,Melisa
--- NOTE | 2017-11-26 12:18 | PN- Nephrology ---
Assessment/Plan Assessment: GHAZAL - 2/2 pre-renal azotemia +/- ATN in the setting of nausea/vomitting while taking NSAID's. Clinically improving. DM - On Metformin - in the setting of GHAZAL, this will need to continue to be held until renal function hopefully returns back to normal. Suggestion: -OK to d/c from renal standpoint -Should have f/u labs in the next week -Hold metformin until SCr <1.5 - can consider alternative agents Pt counseled extensively re: avoidance of NSAID's in the future. Please call [phone] with ?'s Subjective Subjective: Feeling well SCr had been down to 2.4 No labs today Objective Vital Signs and I&Os Vital Signs Date Time Temp Pulse Resp B/P B/P Pulse O2 O2 Flow FiO2 Mean Ox Delivery Rate 11/26 817 92 130/78 11/26 08 92 130/78 11/26 0710 97.7 72 18 112/60 97 11/25 2230 98.2 76 18 122/78 95 Room Air 11/25 2158 74 122/78 11/25 1416 98.6 73 20 100/52 97 Intake & Output 11/26 1600 11/26 0400 11/25 1600 11/25 0400 11/24 1600 11/24 0400 Intake Total 240 1280 1000 800 900 900 Output Total 400 1425 7847 783 2544 1725 Balance -160 -145 -425 498 -325 -825 Intake, IV 0 Intake, Oral 240 1280 1000 800 900 900 Output, Stool 150 225 300 2 100 300 Output, Urine 250 1200 9479 595 6100 1425 Patient 220 lb Weight Weight Reported by Patient Measurement Method Physical Exam: Gen - NAD HEENT - supple CV - RRR, no m/r/g Chest - clear, no w/r/r Abd - soft, NTND Ext - no edema Neuro - AOX3, grossly nonfocal Current Medications: Current Medications Sig/Debby Start time Last Medication Dose Route Stop Time Status Admin Amlodipine Besylate 10 MG DAILY 11/25 103 AC 11/26 PO 0818 Atorvastatin Calcium 10 MG 1700 11/23 1700 AC 11/25 PO 1702 Calcium/Vitamin D 250 MG DAILY 11/25 1039 AC 11/26 PO 0818 Citalopram 10 MG DAILY 11/23 1339 AC 11/26 Hydrobromide PO 0818 Ferrous Sulfate 325 MG DAILY 11/25 1040 AC 11/26 PO 0818 Fish Oil 1,050 MG DAILY 11/25 1040 AC 11/26 PO 0818 Insulin Aspart 0 TIDAC 11/23 1700 AC SC Melatonin 5 MG AT BEDTIME 11/25 2200 AC 11/25 PO 2158 Metoprolol Tartrate 25 MG BID 11/25 1038 AC 11/26 PO 0818 Ondansetron HCl 4 MG Q6P PRN 11/23 1430 AC IV Patient Medication 1 ED ONE ONE 11/25 1315 AR Teaching ED 11/25 1316 Results Pertinent Lab Results: Laboratory Tests 11/25 11/24 0733 1824 Chemistry Sodium (137 - 145 mmol/L) 137 136 L Potassium (3.5 - 5.1 mmol/L) 5.4 H 5.6 H Chloride (98 - 107 mmol/L) 106 103 Carbon Dioxide (22 - 30 mmol/L) 19 L 17 L Anion Gap (5 - 16) 12 17 H BUN (7 - 17 mg/dL) 72 H 81 H Creatinine (0.5 - 1.0 mg/dL) 2.4 H 2.8 H Estimated GFR (>60 ml/min) 20 L 17 L BUN/Creatinine Ratio (7 - 25 %) 30.0 H 28.9 H Hematology CBC w Diff NO MAN DIFF REQ WBC (4.8 - 10.8 /CUMM) 6.4 RBC (4.20 - 5.40 /CUMM) 3.52 L Hgb (12.0 - 16.0 G/DL) 9.4 L Hct (37 - 47 %) 28.3 L MCV (81.0 - 99.0 FL) 80.3 L MCH (27.0 - 31.0 PG) 26.7 L RDW (11.5 - 14.5 %) 16.1 H Plt Count (130 - 400 /CUMM) 216 MPV (7.4 - 10.4 FL) 8.7 Gran % (42.2 - 75.2 %) 77.5 H Lymphocytes % (20.5 - 51.1 %) 10.2 L Monocytes % (1.7 - 9.3 %) 7.8 Eosinophils % (0 - 5 %) 4.0 Basophils % (0.0 - 2.0 %) 0.5 Absolute Granulocytes (1.4 - 6.5 /CUMM) 5.0 Absolute Lymphocytes (1.2 - 3.4 /CUMM) 0.7 L Absolute Monocytes (0.10 - 0.60 /CUMM) 0.5 Absolute Eosinophils (0.0 - 0.7 /CUMM) 0.3 Absolute Basophils (0.0 - 0.2 /CUMM) 0 PUBS MCHC (33.0 - 37.0 G/DL) 33.2 11/24 11/24 11/23 0725 0110 2100 Chemistry Sodium (137 - 145 mmol/L) 134 L 131 L 131 L Potassium (3.5 - 5.1 mmol/L) 5.3 H 4.9 4.6 Chloride (98 - 107 mmol/L) 104 100 100 Carbon Dioxide (22 - 30 mmol/L) 16 L 16 L 15 L Anion Gap (5 - 16) 14 15 16 BUN (7 - 17 mg/dL) 91 H 93 H 97 H Creatinine (0.5 - 1.0 mg/dL) 3.2 H 3.5 H 3.6 H Estimated GFR (>60 ml/min) 14 L 13 L 13 L BUN/Creatinine Ratio (7 - 25 %) 28.4 H 26.6 H 26.9 H Hematology CBC w Diff NO MAN DIFF REQ WBC (4.8 - 10.8 /CUMM) 6.0 RBC (4.20 - 5.40 /CUMM) 3.50 L Hgb (12.0 - 16.0 G/DL) 9.5 L Hct (37 - 47 %) 28.0 L MCV (81.0 - 99.0 FL) 79.8 L MCH (27.0 - 31.0 PG) 27.2 RDW (11.5 - 14.5 %) 16.0 H Plt Count (130 - 400 /CUMM) 209 MPV (7.4 - 10.4 FL) 8.5 Gran % (42.2 - 75.2 %) 77.6 H Lymphocytes % (20.5 - 51.1 %) 10.6 L Monocytes % (1.7 - 9.3 %) 7.7 Eosinophils % (0 - 5 %) 3.3 Basophils % (0.0 - 2.0 %) 0.8 Absolute Granulocytes (1.4 - 6.5 /CUMM) 4.6 Absolute Lymphocytes (1.2 - 3.4 /CUMM) 0.6 L Absolute Monocytes (0.10 - 0.60 /CUMM) 0.5 Absolute Eosinophils (0.0 - 0.7 /CUMM) 0.2 Absolute Basophils (0.0 - 0.2 /CUMM) 0 PUBS MCHC (33.0 - 37.0 G/DL) 34.1 11/23 11/23 11/23 1830 1435 1355 Chemistry Sodium (137 - 145 mmol/L) 130 L 126 L Potassium (3.5 - 5.1 mmol/L) 5.0 5.3 H Chloride (98 - 107 mmol/L) 98 97 L Carbon Dioxide (22 - 30 mmol/L) 15 L 14 L Anion Gap (5 - 16) 17 H 15 BUN (7 - 17 mg/dL) 98 H 108 *H Creatinine (0.5 - 1.0 mg/dL) 3.8 H 4.1 H Estimated GFR (>60 ml/min) 12 L 11 L BUN/Creatinine Ratio (7 - 25 %) 25.8 H 26.3 H Lactic Acid Cancelled 11/23 11/23 11/23 1230 1230 1221 Chemistry Serum Osmolality Cancelled Urines Urinalysis MOD H Urine Color (YEL,AMB,STR) BLDY H Urine Clarity (CLEAR) CLDY H Urine pH (5.0 - 8.0) 6.5 Ur Specific [place] (1.001 - 1.035) 1.015 Urine Protein (NEG,<30 MG/DL) >=300 H Urine Ketones (NEG) 15 H Urine Nitrite (NEG) POS H Urine Bilirubin (NEG) NEG@ICTO Urine Urobilinogen (0.1 - 1.0 EU/dl) 2.0 H Ur Leukocyte Esterase (NEG) LARGE H Ur Microscopic SEDIMENT EXAMINED Urine RBC (0 - 5 /HPF) PACKD H Urine WBC (0 - 2 /HPF) > 75 H Ur Epithelial Cells (NONE,FEW) FEW Urine Bacteria (NEG/NONE) MOD H Micro UA Comment MORE INFO: H Urine Hemoglobin (NEG) LARGE H Urine Osmolality (300 - 1000 MOSM/KG) 234 L Ur Random Creatinine (mg/dL) 57.5 Ur Random Sodium (30 - 90 mmol/L) 19 L Ur Random Potassium (mmol/L) 29.5 Fraction Sodium Excret (<1% %) 1.3 H Urine Glucose (N MG/DL) NEG Imaging/Other Studies: CT IMPRESSION: 1. No acute inflammatory changes abdomen or pelvis. 2. Probable small gravel like gallstones. No gallbladder wall thickening or intrahepatic ductal dilatation. Fullness extrahepatic ducts stable. 3. Pancreas unremarkable. No duct dilatation or peripancreatic inflammatory changes. 4. Right staghorn renal calculus. No interval hydronephrosis or perinephric stranding. Punctate nonobstructing left renal calculus. 5. Large fat and bowel containing hernia at right lower quadrant ostomy. No bowel obstruction or wall thickening.
== END 2017-11-26 13:42 | DRG 683 ==
LOC: ERH 10:22 → ERHI 13:12 → 2NB 13:12 → ENRESERV 13:46 → ENTRNSPT 14:28 → 2NB 15:07 → CMPTRNSPT 15:30 → ENPENDDIS 11-26 12:33 → ENTRNSPT 11-26 13:25 → EDTRNSPTSTS 11-26 13:32 → 2NB 11-26 13:42 → CMPTRNSPT 11-26 13:52
PROVIDERS: Physician Assistant Medical; Student in an Organized Health Care Education/Training Program
DX: N17.9 Acute kidney failure, unspecified (principal); E87.1 Hypo-osmolality and hyponatremia; E11.22 Type 2 diabetes mellitus with diabetic chronic kidney disease; E87.5 Hyperkalemia; I12.9 Hypertensive chronic kidney disease with stage 1 through stage 4 chronic kidney disease, or unspecified chronic kidney disease; E86.0 Dehydration; N18.9 Chronic kidney disease, unspecified; Z79.84 Long term (current) use of oral hypoglycemic drugs; Z87.442 Personal history of urinary calculi; R31.9 Hematuria, unspecified; E66.9 Obesity, unspecified; Z68.38 Body mass index [BMI] 38.0-38.9, adult; K52.9 Noninfective gastroenteritis and colitis, unspecified; Z93.3 Colostomy status; E78.5 Hyperlipidemia, unspecified; F32.9 Major depressive disorder, single episode, unspecified; I35.0 Nonrheumatic aortic (valve) stenosis; Z87.891 Personal history of nicotine dependence; N20.0 Calculus of kidney
CPT/HCPCS: 2NBSP; 84133; 84300; 36415; 71045; 74176; 81001; 82436; 82570; 87040; 87070; 87086; 87804; 87804-59; 93005; 93010; 96360; 96361; J2405

== ENCOUNTER → 2018-01-07 | Day surgery (SDC) | payer OTHER ==
[~2018-01-07] VITALS: Ht 160 cm; Wt 95.3 kg
[~2018-01-07] MED LIST changes: +ALLOPURINOL100 M1 PO; +FERROUS SULFAT325 M3 PO; +PRESERVISION A1 EAC1 PO
--- NOTE | 2018-01-07 09:46 | Operative Report ---
Operative/Inv Procedure Report Surgery Date: 01/07/18 Name of Procedure: right renal eswl: fluoroscopy Pre-Operative Diagnosis: right staghorn calculus Post-Operative Diagnosis: same Estimated Blood Loss: none Surgeon/On Car Supervisor: Steven Green MD Anesthesia: moderate sedation Specimens: none Complications: none Operative/Procedure Note Note: The patient was taken to the operating room placed on the OR table in supine position. Timeout was performed, with the patient awake, in order to confirm correct procedure, laterality, anesthesia, and other pertinent perioperative information. After adequate anesthesia and antibiotics, the patient was then positioned over the ESWL table cutout overlying the treatment dome. Fluoroscopy, using AP and oblique views, as well as renal ultrasound, or performed in order to locate the stone. The position of the stone was optimized, and positioned in the middle of the ESWL crosshairs. The stone was measured to be approximately 25 mm in size. focusing on the lower renal pelvis portion of the stone, ESWL was initiated at low power, and after 200 shockwaves delivered, noting the patient's tolerance to the shockwaves, the power was increased to maximum. At the end of 2500 shockwaves, fluoroscopy confirms the change in consistency of the stone, indicating shattering of the stone segment. All sponge needle and instrument count were correct at the end of the case. The patient tolerated the procedures well, and was taken to the recovery room in satisfactory condition. The patient is discharged home with pain medication, and follow-up instructions with in 2-3 weeks' time. Discharge Disposition: Same Day Admissions CC: Steven Green MD
== END ==
LOC: STS 03:11
DX: N20.0 Calculus of kidney (principal); E11.9 Type 2 diabetes mellitus without complications; Z79.84 Long term (current) use of oral hypoglycemic drugs; M10.9 Gout, unspecified; I10 Essential (primary) hypertension